=== PATIENT | female | born 1955 | race Caucasian/White ===

== ENCOUNTER 2020-10-01 23:58 | Inpatient (IN) ==
[2020-10-02] MEDS ORDERED: cefTRIAXone SODIUM 2,000 MG/70 ML BAG IV STA (00:18)
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
[2020-10-02 00:51] LABS: Basophils # (auto) 0.03 K/uL (0-0.2); Basophils % (auto) 0.4 %; Eosinophils # (auto) 0.32 K/uL (0-0.5); Eosinophils % (auto) 3.9 %; Hematocrit (blood only) 43.9 % (37-47); Hemoglobin 14.5 g/dL (12.0-16.0); Immature Granulocytes # (auto) 0.02 K/uL (0.00-0.02); Immature Granulocytes % (auto) 0.2 %; Lymphocytes # (auto) 2.31 K/uL (1.2-3.4); Mean Corpuscular Hemoglobin 29.9 pg (25-34); Mean Corpuscular Volume 90.5 fL (80-100); Mean Platelet Volume 10.8 fL (7.4-10.4); Monocytes # (auto) 0.91 K/uL (0.11-0.59); Neutrophils # (auto) 4.67 K/uL (1.4-6.5); Neutrophils % (auto) 56.5 %; Platelet Count 222 K/uL (130-400); RDW Coefficient of Variation 13.4 % (11.5-14.5); RDW Standard Deviation 44.2 fL (36.4-46.3); Red Blood Count 4.85 M/uL (4.2-5.4); White Blood Count 8.26 K/uL (4.8-10.8)
[2020-10-02 01:01] LABS: INR 1.1 (0.9-1.1); Partial Thromboplastin Time 27.2 Seconds (21.0-31.0); Prothrombin Time 11.4 Seconds (9.0-12.0)
[2020-10-02 01:09] LABS: Alanine Aminotransferase 32 U/L (12-78); Albumin Level 3.7 gm/dl (3.4-5.0); Aspartate Aminotransferase 37 U/L (15-37); BUN Creatinine Ratio 21.6 (10-20); Blood Urea Nitrogen 21 mg/dl (7-18); Calcium 9.5 mg/dl (8.5-10.1); Carbon Dioxide 27 mmol/L (21-32); Chloride 108 mmol/L (98-107); Est GFR (African American) 68.8; Est GFR (Non-African American) 59.4; Glucose 160 mg/dl (70-99); Magnesium 2.2 mg/dl (1.8-2.4); Potassium 3.9 mmol/L (3.5-5.1); Sodium 141 mmol/L (136-145)
[2020-10-02 01:20] LABS: Albumin Globulin Ratio 0.9 (0.9-2); Alkaline Phosphatase 93 U/L (45-117); Bilirubin,Total 0.5 mg/dl (0.2-1); Globulin 3.9 gm/dl (2.5-4.0); Total Protein 7.6 gm/dl (6.4-8.2); Troponin I < 0.015 ng/ml (0-0.045)
[2020-10-02] MEDS ORDERED: IOVERSOL 100ml IV ONE (02:10)
[2020-10-02] MEDS ORDERED: lisinopril 5 MG TAB PO ONE (03:08)
[2020-10-02] MEDS ORDERED: DOXYCYCLINE HYCLATE 100 MG in DEXTROSE 5% 100 ML IV STA (03:09)
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
--- NOTE | 2020-10-02 03:26 | Emergency Department Note ---
ED Visit Note I saw this patient in conjunction with Rocio Bonilla PA-C. I independently evaluated this patient. I examined the left lower extremity. There is moderate erythema consistent with acute cellulitis. We discussed the patient's previous spinal surgery with Dr. Canela in the fall that occurred in the injury she suffered to the left side of her body. The patient has received IV antibiotics here in the emergency department and will be admitted to Dr. Pink. .
[2020-10-02 03:29] LABS: Creatine Kinase 62 U/L (26-192)
[2020-10-02] MEDS ORDERED: ACETAMINOPHEN 325 MG TAB PO PRN (04:18)
[2020-10-02] MEDS ORDERED: oxyCODONE HCL IR 5 MG TAB (IMMEDIATE RELEASE) PO PRN (04:18)
[2020-10-02] MEDS ORDERED: PROMETHAZINE HCL 12.5 MG in SODIUM CHLORIDE 0.9% 50 ML IV PRN (04:18)
[2020-10-02] MEDS ORDERED: METHOCARBAMOL 750 MG TABLET PO PRN (04:18)
[2020-10-02] MEDS ORDERED: LACTATED RINGER'S 1,000 ML IV ONE (04:18)
[2020-10-02] MEDS ORDERED: FLUTICASONE PROPIONATE NA SPR 16 GM BTL PRN (04:18)
[2020-10-02] MEDS ORDERED: MoRPHine SULFATE 4 MG/ML 1 ML CARP\\VIAL IV PRN (04:18)
[2020-10-02] MEDS ORDERED: PNEUMOCOCCAL ADMINISTRATION CHARGE ONE (04:39)
[2020-10-02] MEDS ORDERED: INFLUENZA ADMINISTRATION CHARGE ONE (04:39)
[2020-10-02] MEDS ORDERED: INFLUENZA VIRUS QUAD VACCINE 0.5 ML SYR IM ONE (04:39)
[2020-10-02] MEDS ORDERED: PNEUMOCOCCAL POLYSACCHARIDES 25 MCG/0.5 ML VIAL/SYR IM ONE (04:39)
--- NOTE | 2020-10-02 06:36 | XRay Report ---
XR tibia fibula LT 2V HISTORY: 65 years-old Female LLE pain acute pain of the left lower extremity with soft tissue swelli ng COMPARISON: Left knee radiographs 08/05/2011 TECHNIQUE: 2 views of the left tibia and fibula FINDINGS: Cortical thickening of the distal tibia suggests healed remote fracture deformity. There is evidence of prior distal tibial hardware removal. Moderate tibiotalar osteoarthritis. Subtalar joint effusion with intact cannulated screws. Severe degeneration of the talonavicular joint. Mildly demineralized a ppearance of the bones. Mild soft tissue prominence of the lower leg. No acute fracture or dislocatio n. IMPRESSION: 1. Soft tissue swelling without acute fracture or dislocation. 2. Remote posttraumatic and postoperative changes as above. 3. Moderate tibiotalar with severe talonavicular degeneration. ACT 112: Negative or not required by law. The above report was generated using voice recognition software. It may contain grammatical, syntax o r spelling errors. Electronically signed by: Fortunato Crisostomo M.D. 10/02/2020 6:35 AM
[2020-10-02 06:45] LABS: Estimated Average Glucose 128 mg/dl; Hemoglobin A1C 6.1 % (4.5-5.6)
[2020-10-02] MEDS: MoRPHine SULFATE CR 60 MG TABCR PO SCH ×3 (06:47→22:29)
--- NOTE | 2020-10-02 06:47 | Ultrasound Report ---
US venous doppler LE LT HISTORY: 65 years-old Female pain/swelling acute pain and swelling of the left lower extremity COMPARISON: Left tibia and fibula radiographs of same day TECHNIQUE: Multiple real-time sonographic images of the left lower extremity deep venous structures w ere obtained assessing grayscale appearance, color and spectral flow FINDINGS: Limited visualization of the calf veins secondary to subcutaneous edema. Normal flow, compressibility , phasicity and augmentation of the left lower extremity deep venous structures. IMPRESSION: No sonographic evidence of deep venous thrombosis. ACT 112: Negative or not required by law. The above report was generated using voice recognition software. It may contain grammatical, syntax o r spelling errors. Electronically signed by: Fortunato Crisostomo M.D. 10/02/2020 6:45 AM
--- NOTE | 2020-10-02 06:54 | CT Scan Report ---
CT head/brain wo con CLINICAL HISTORY: Head pain status post trauma COMPARISON STUDY: 03/28/2016 TECHNIQUE: Axial CT of the brain is performed from the vertex to the skull base. IV contrast was not administered for this examination. A dose lowering technique was utilized adhering to the principles of ALARA. CT DOSE: 1916.56 mGy.cm FINDINGS: No intra or extra-axial mass lesions are visualized. There is no CT evidence of acute cortical infarc tion. There is no evidence of midline shift. There is no acute hemorrhage. No calvarial fractures ar e visualized. There are minor white matter hypodensities likely on a small vessel basis. There is no evidence of pathologic ventricular dilatation. There is ossification of the falx. There is a right maxillary sinus air-fluid level. IMPRESSION: 1. No acute intracranial findings 2. Right maxillary sinus air-fluid level. ACT 112: Negative or not required by law. Electronically signed by: Maikel Cid M.D. 10/02/2020 6:53 AM
--- NOTE | 2020-10-02 06:57 | CT Scan Report ---
CT OF THE CERVICAL SPINE CLINICAL HISTORY: Neck pain status post trauma COMPARISON STUDY: No previous studies for comparison. CT DOSE: TECHNIQUE: CT scan of the cervical spine was performed from the skull base to the thoracic inlet. Vicky ges are reviewed in the axial, sagittal, and coronal planes. IV contrast was not administered for thi s examination. A dose lowering technique was utilized adhering to the principles of ALARA. FINDINGS: There is a right maxillary sinus air-fluid level. There is no apical pneumothorax. The prevertebral soft tissues are normal. No fractures or subluxations are visualized. There are multilevel degenerative changes present, most pronounced the C5-C6 level with posterior ost eophytic spurring and secondary spinal canal narrowing IMPRESSION: No evidence of acute fracture or traumatic subluxation. ACT 112: Negative or not required by law. Electronically signed by: Maikel Cid M.D. 10/02/2020 6:56 AM
--- NOTE | 2020-10-02 07:12 | XRay Report ---
XR chest 1V portable CLINICAL HISTORY: weakness COMPARISON STUDY: 10/07/2018 FINDINGS: The cardiac and mediastinal contours remain stable. There is stable interstitial thickening which is felt to be chronic. There is no lobar consolidation. There are no pleural effusions. Postsu rgical changes are present within the thoracolumbar spine.[ IMPRESSION: Chronic interstitial thickening. No evidence of focal pulmonary consolidation ACT 112: Negative or not required by law. Electronically signed by: Maikel Cid M.D. 10/02/2020 7:11 AM
[2020-10-02 07:46] LABS: Basophils # (auto) 0.03 K/uL (0-0.2); Basophils % (auto) 0.3 %; Eosinophils # (auto) 0.29 K/uL (0-0.5); Eosinophils % (auto) 3.3 %; Hemoglobin 13.6 g/dL (12.0-16.0); Immature Granulocytes # (auto) 0.02 K/uL (0.00-0.02); Immature Granulocytes % (auto) 0.2 %; Lymphocytes # (auto) 2.89 K/uL (1.2-3.4); Lymphocytes % (auto) 32.5 %; Mean Corpuscular Hemoglobin 29.7 pg (25-34); Mean Corpuscular Hgb Conc 32.4 g/dL (32-36); Mean Corpuscular Volume 91.7 fL (80-100); Monocytes # (auto) 0.89 K/uL (0.11-0.59); Neutrophils # (auto) 4.78 K/uL (1.4-6.5); Neutrophils % (auto) 53.7 %; Platelet Count 230 K/uL (130-400); RDW Coefficient of Variation 13.7 % (11.5-14.5); RDW Standard Deviation 45.5 fL (36.4-46.3); Red Blood Count 4.58 M/uL (4.2-5.4)
--- NOTE | 2020-10-02 07:54 | CT Scan Report ---
CHEST CT WITH CONTRAST HISTORY: Acute left-sided chest pain status post traumatic fall. fall, pain TECHNIQUE: Multiaxial CT images of the chest were performed following the IV administration of 93 cc of Optiray 320. A dose lowering technique was utilized adhering to the principles of ALARA. COMPARISON: Chest radiograph 10/02/2020, MRI thoracic spine 12/09/2018 FINDINGS: 7 mm inferior right thyroid lobe hypodense nodule. There are no pathologically enlarged lym ph nodes. The heart is normal in size without pericardial effusion. There is mild fusiform dilation o f the ascending thoracic aorta, 4.2 x 4.1 cm. No dissection. Mild calcified plaque of the thoracic ao rta and proximal great vessels. The opacified pulmonary artery is unremarkable. No pneumothorax, pleural effusion or overt pulmonary edema. Subpleural predominant bilateral reticula r opacities. 3 mm solid nodule of the apical posterior segment left upper lobe, of low clinical suspi cion. The central airways are patent. No acute process of the imaged upper abdomen. No acute fracture identified. Partially imaged thoracol umbar posterior interbody heidi and screw fusion. IMPRESSION: 1. No acute intrathoracic abnormality. 2. No acute fracture or pneumothorax. 3. Bilateral subpleural predominant reticular opacities are suggestive of fibrosis. 4. Mild fusiform dilation of the ascending thoracic aorta, 4.2 x 4.1 cm. ACT 112: Negative or not required by law. Electronically signed by: Fortunato Crisostomo M.D. 10/02/2020 7:53 AM
[2020-10-02 08:13] LABS: BUN Creatinine Ratio 22.3 (10-20); Calcium 9.4 mg/dl (8.5-10.1); Creatinine Clr Calc Pharmacy 87.5 ml/min; Est GFR (African American) 82.8; Est GFR (Non-African American) 71.4; Potassium 4.1 mmol/L (3.5-5.1)
[2020-10-02] MEDS: ENOXAPARIN INJ 40 MG/0.4 ML SYR SQ SCH (08:56)
[2020-10-02] MEDS: METHOCARBAMOL 750 MG TABLET PO SCH (08:57)
[2020-10-02] MEDS: QUEtiapine FUMARATE 100 MG TABLET PO SCH (08:57)
[2020-10-02] MEDS: DULoxetine HCL 60 MG CAP PO SCH (08:57)
[2020-10-02] MEDS: PANTOprazole 40 MG TAB PO SCH ×2 (08:58→20:53)
--- NOTE | 2020-10-02 10:15 | Electrocardiogram Report ---
Test Reason : Blood Pressure : / mmHG Vent. Rate : 076 BPM Atrial Rate : 076 BPM P-R Int : 206 ms QRS Dur : 096 ms QT Int : 408 ms P-R-T Axes : 037 -07 051 degrees QTc Int : 459 ms Poor data quality, interpretation may be adversely affected Normal sinus rhythm Normal ECG When compared with ECG of 07-OCT-2018 11:21, Criteria for Anterolateral infarct are no longer Present Confirmed by Tyrone Coyne ([id number]) on 10/02/2020 10:15:12 AM Referred By: REFERRED SELF Confirmed By:Tyrone Coyne
[2020-10-02] MEDS: CEROVITE ADV FORMULA TAB PO SCH (13:53)
--- NOTE | 2020-10-02 14:09 | Hospitalist Progress Note ---
Date of Service October 02, 2020 Assessment & Plan (1) Cellulitis of left leg: Recent traumatic fall -- xray of the leg: no fractures -- CT Knee, Leg, Foot: Pending -- improving continue PO DOxycycline PT/OT hypertension, elevated secondary discomfort -- continue Lisinopril, Clonidine hyperlipidemia, on statin Rx chronic pain on narcotics prediabetes -- hemoglobin A1c of 6.1 past tobacco abuse DVT prophylaxis Lovenox subcu Full code Disposition anticipate to return home tomorrow when medically stable Admission and Anticipated Discharge Date Admission Date: October 02, 2020 Subjective ff up for left leg cellulitis, s/p Fall seen resting in bed, comfortable, not in distress states she feels improved overall states she still has knee, lower leg, and ankle pain redness is 50% improved has some pain with ambulating no other symptoms Review of Systems Review of Systems: All systems reviewed & are unremarkable except as noted in Subjective Physical Exam Physical Exam: General- oriented x 3, not in distress, speaks in sentences with no effort or accessory muscle use Head- atraumatic Eyes- PERRL, EOMI, anicteric ENT- oropharynx clear Neck- supple, no JVD, no adenopathy, no thyromegaly; carotids +2/2, no bruits appreciated Lungs- clear to auscultation bilaterally, no rales/wheezes Heart- normal rate, regular rhythm; no murmur, no gallop, no rub appreciated Abdomen- normal bowel sounds, nondistended, soft, nontender, no masses or hepatosplenomegaly Extremities- Left Lower Leg: (+) mild-moderate erythema, no warmth, mild tenderness, poor ROM due to pain Right lower Leg: essentially normal Left Shoulder: (+) hematoma Neuro- alert, oriented x 3; CN 2-12 grossly intact; motor 5/5 bilaterally;sensation 100% on all extremities; no other gross focal neurologic deficits Skin- warm & dry Results & Data Results & Data ([facility]) Vital Signs (Past 12 Hours) Vital Signs Temp Pulse Pulse Resp BP BP Pulse Ox 10/02/20 07:43 37 C 19 156/82 H 95 10/02/20 04:10 37.2 C 71 18 148/89 H 98 10/02/20 03:39 75 15 164/89 H 96 10/02/20 03:02 79 21 168/97 H 100 10/02/20 02:31 81 16 154/99 H 97 Laboratory Results Laboratory Results - last 24 hr 10/02/20 10/02/20 10/02/20 00:18 00:36 00:36 WBC 8.26 RBC 4.85 Hgb 14.5 Hct 43.9 MCV 90.5 MCH 29.9 MCHC 33.0 RDW Std Deviation 44.2 RDW Coeff of Moses 13.4 Plt Count 222 MPV 10.8 H Immature Gran % (Auto) 0.2 Neut % (Auto) 56.5 Lymph % (Auto) 28.0 [place] % (Auto) 11.0 Eos % (Auto) 3.9 Baso % (Auto) 0.4 Neut # (Auto) 4.67 Lymph # (Auto) 2.31 [place] # (Auto) 0.91 H Eos # (Auto) 0.32 Baso # (Auto) 0.03 Immature Gran # (Auto) 0.02 PT 11.4 INR 1.1 APTT 27.2 PTT Ratio 1.0 Sodium Potassium Chloride Carbon Dioxide Anion Gap BUN Creatinine Est Cr Clr Drug Dosing Est GFR ( Amer) Est GFR (Non-Af Amer) BUN/Creatinine Ratio Glucose Estimat Average Glucose 128 Hemoglobin A1c 6.1 H Lactate Calcium Magnesium Total Bilirubin AST ALT Alkaline Phosphatase Total Creatine Kinase Troponin I Total Protein Albumin Globulin Albumin/Globulin Ratio TSH 10/02/20 10/02/20 10/02/20 00:36 00:36 07:24 WBC 8.90 RBC 4.58 Hgb 13.6 Hct 42.0 MCV 91.7 MCH 29.7 MCHC 32.4 RDW Std Deviation 45.5 RDW Coeff of Moses 13.7 Plt Count 230 MPV 11.0 H Immature Gran % (Auto) 0.2 Neut % (Auto) 53.7 Lymph % (Auto) 32.5 [place] % (Auto) 10.0 Eos % (Auto) 3.3 Baso % (Auto) 0.3 Neut # (Auto) 4.78 Lymph # (Auto) 2.89 [place] # (Auto) 0.89 H Eos # (Auto) 0.29 Baso # (Auto) 0.03 Immature Gran # (Auto) 0.02 PT INR APTT PTT Ratio Sodium 141 Potassium 3.9 Chloride 108 H Carbon Dioxide 27 Anion Gap 6.0 BUN 21 H Creatinine 0.99 Est Cr Clr Drug Dosing Not Reportable Est GFR ( Amer) 68.8 Est GFR (Non-Af Amer) 59.4 BUN/Creatinine Ratio 21.6 H Glucose 160 H Estimat Average Glucose Hemoglobin A1c Lactate 1.5 Calcium 9.5 Magnesium 2.2 Total Bilirubin 0.5 AST 37 ALT 32 Alkaline Phosphatase 93 Total Creatine Kinase 62 Troponin I < 0.015 Total Protein 7.6 Albumin 3.7 Globulin 3.9 Albumin/Globulin Ratio 0.9 TSH 2.300 10/02/20 07:24 WBC RBC Hgb Hct MCV MCH MCHC RDW Std Deviation RDW Coeff of Moses Plt Count MPV Immature Gran % (Auto) Neut % (Auto) Lymph % (Auto) [place] % (Auto) Eos % (Auto) Baso % (Auto) Neut # (Auto) Lymph # (Auto) [place] # (Auto) Eos # (Auto) Baso # (Auto) Immature Gran # (Auto) PT INR APTT PTT Ratio Sodium 138 Potassium 4.1 Chloride 107 Carbon Dioxide 27 Anion Gap 4.0 BUN 19 H Creatinine 0.85 Est Cr Clr Drug Dosing 87.5 Est GFR ( Amer) 82.8 Est GFR (Non-Af Amer) 71.4 BUN/Creatinine Ratio 22.3 H Glucose 114 H Estimat Average Glucose Hemoglobin A1c Lactate Calcium 9.4 Magnesium Total Bilirubin AST ALT Alkaline Phosphatase Total Creatine Kinase Troponin I Total Protein Albumin Globulin Albumin/Globulin Ratio TSH
[2020-10-02] MEDS ORDERED: hydrALAZINE HCL 20 MG/ML VIAL IV PRN (14:12)
[2020-10-02] MEDS ORDERED: FENOFIBRATE NANOCRYSTALLIZED 145 MG TABLET PO SCH (16:30)
[2020-10-02] MEDS ORDERED: SIMVASTATIN 40 MG TAB PO SCH (16:30)
[2020-10-02] MEDS: DOXYCYCLINE HYCLATE 100 MG CAP PO SCH (20:53)
[2020-10-02] MEDS ORDERED: cloNIDine HCL 0.1 MG TAB PO SCH (21:00)
[2020-10-02] MEDS ORDERED: clonazePAM 0.5 MG TAB PO SCH (21:00)
[2020-10-02] MEDS ORDERED: QUEtiapine FUMARATE 200 MG TAB PO SCH (21:00)
[2020-10-03] MEDS: MoRPHine SULFATE CR 60 MG TABCR PO SCH ×2 (05:31→13:51)
--- NOTE | 2020-10-03 10:04 | CT Scan Report ---
CT foot LT wo con CLINICAL HISTORY: foot pain, fall, r/o fracture COMPARISON STUDY: No previous studies for comparison. TECHNIQUE: Axial images of the left foot were obtained without IV contrast. Sagittal and coronal eusebio nstructions were viewed. Automated exposure control was utilized for the study. A dose lowering tech nique was utilized adhering to the principles of ALARA. FINDINGS: Subtalar joint fusion is noted. Fusion is complete. 2 cannulated screws extending across th e articulation. There is severe osteoarthritis of the left tibiotalar joint joint space narrowing and subchondral cystic change. There is articular collapse. Previous internal fixation within the left a nkle is partially imaged. No acute fracture within the left foot is noted. Tarsometatarsal joints are intact. There is a healed fracture of the left fifth metatarsal. Dorsal soft tissue swelling is note d. No fluid collection is noted. Note is made of severe osteoarthritis of the talonavicular articulat ion. Anterior process of the calcaneus is diminutive. This is chronic. IMPRESSION: 1. No acute fracture within the left foot. 2. Status post subtalar joint fusion. Severe osteoarthritis of the tibiotalar articulation. 3. Old, healed left fifth metatarsal fracture. Previous left ankle internal fixation with hardware re moval. 4. Dorsal soft tissue swelling of the left foot. ACT 112: Negative or not required by law. Electronically signed by: Hakan Noriega M.D. 10/03/2020 10:03 AM
--- NOTE | 2020-10-03 10:09 | CT Scan Report ---
CT ankle LT wo con CLINICAL HISTORY: foot pain, fall, r/o fracture COMPARISON STUDY: Left tibia and fibula radiographs October 02, 2020. TECHNIQUE: Axial images of the left ankle were obtained without IV contrast. Sagittal and coronal rec onstructions were viewed. Automated exposure control was utilized for the study. A dose lowering vikki hnique was utilized adhering to the principles of ALARA. FINDINGS: Subtalar joint fusion with 2 cannulated screws is noted. This is better depicted on the CT of the left foot. There is an old, healed fracture of the distal shaft of the left tibia. Hardware gallo s been removed. There is no acute fracture of the distal left tibia or fibula. Severe osteophytosis o f the left tibiotalar joint is noted with articular collapse. This is not acute. No suspicious osseou s lesion is noted. There is partial fusion of the distal tibiofibular syndesmosis. Left ankle and prachi t soft tissue swelling is noted. No fluid collection is identified. There is no soft tissue gas. IMPRESSION: 1. No acute fracture or dislocation within the left ankle. 2. Severe osteoarthritis of the tibiotalar joint. Status post subtalar joint fusion. 3. Old, healed fracture of the distal left tibia. 4. Left ankle and foot soft tissue swelling. ACT 112: Negative or not required by law. Electronically signed by: Hakan Noriega M.D. 10/03/2020 10:08 AM
[2020-10-03] MEDS: PANTOprazole 40 MG TAB PO SCH (10:16)
[2020-10-03] MEDS: METHOCARBAMOL 750 MG TABLET PO SCH (10:16)
[2020-10-03] MEDS: DOXYCYCLINE HYCLATE 100 MG CAP PO SCH (10:16)
[2020-10-03] MEDS: ENOXAPARIN INJ 40 MG/0.4 ML SYR SQ SCH (10:16)
[2020-10-03] MEDS: QUEtiapine FUMARATE 100 MG TABLET PO SCH (10:17)
[2020-10-03] MEDS: DULoxetine HCL 60 MG CAP PO SCH (10:17)
[2020-10-03] MEDS: CEROVITE ADV FORMULA TAB PO SCH (10:19)
--- NOTE | 2020-10-03 11:10 | CT Scan Report ---
CT SCAN OF THE LEFT TIBIA AND FIBULA WITHOUT IV CONTRAST CLINICAL HISTORY: Fall. Left leg pain. COMPARISON STUDY: Radiographs of the left tibia and fibula dated 10/02/2020. TECHNIQUE: CT scan of the left tibia and fibula is performed from the distal femur to the ankle joint . Images are reviewed in the axial, sagittal, and coronal planes. IV contrast was not administered fo r this examination. A dose lowering technique was utilized adhering to the principles of ALARA. CT DOSE: 913.18 mGy.cm FINDINGS: The skeletal structures are osteopenic. No acute fracture is seen involving the tibia or fi bula. There is chronic posttraumatic deformity of the distal tibia and fibula with evidence of previo us surgery. Postoperative change from hindfoot fusion is partially imaged. Degenerative change is see n at the tibiotalar articulation. The knee joint is maintained. There is a knee joint effusion. There is pretibial soft tissue edema. More focal soft tissue induration with overlying dermal thickening i s seen anterior to the distal tibia on axial image #360. No organized fluid collection is seen sugges t abscess. Soft tissue edema is also seen overlying the malleolar and in the foot. The Achilles tendo n is intact as imaged. There is generalized atrophy of the regional musculature. Superficial venous v aricosities are present medially. Soft tissue hemorrhage is seen along the anterolateral aspect of th e left knee on axial image #58. This measures approximately 4.5 x 1 cm as seen on image #60. IMPRESSION: 1. There is no evidence of acute fracture of the left tibia or fibula. 2. Chronic posttraumatic deformity and postoperative change as above. 3. Knee joint effusion. 4. There is soft tissue hemorrhage/hematoma identified along the anterolateral aspect of the knee. 5. Additional soft tissue edema is seen throughout the distal left lower extremity. Correlate clinica lly for evidence of contusion and/or cellulitis. ACT 112: Negative or not required by law. Dictated: 10/03/2020 10:06 AM Transcribed: 10/03/2020 10:42 AM Marie [id number] [email or web address]_[email or web address] Electronically signed by: Keanu Joyce M.D. 10/03/2020 11:09 AM
--- NOTE | 2020-10-03 15:33 | Consultation Report ---
DATE OF CONSULTATION: 10/03/2020 HISTORY OF PRESENT ILLNESS: The patient presents as a 65-year-old white female after having had a fall sustaining trauma to her left lower extremity with a contusion and some very mild cellulitis, she relates it is resolving over her left lateral knee. Her x-rays revealed there to be evidence of an old healed fracture of her tibia as well as a previous subtalar fusion, which she relates was done in [place] by Dr. Surya Haro years back. She recently had a fall, has had a contusion over the lateral aspect of her knee. X-rays revealed evidence of no acute fractures, no acute findings are noted. She relates she is getting better and is actually being discharged later today. I reviewed CAT scan and x-rays, nothing acute at this time. Will follow up on an as needed basis. ASSESSMENT: Contusion, resolving cellulitis, left lateral knee. PLAN: Follow up on a p.r.n. basis.
[2020-10-03 16:06] VITALS: BP 118/76; PULSE 71; TEMP 98.2; O2SAT 93
[2020-10-03] MEDS ORDERED: lisinopril 5 MG TAB PO SCH (16:30)
--- NOTE | 2020-10-03 16:37 | Hospitalist Progress Note ---
Date of Service delayed entry date of service note below October 03, 2020 Assessment & Plan (1) Cellulitis of left leg: Recent traumatic fall -- xray of the leg: no fractures -- CT Knee, Leg, Foot: 1. There is no evidence of acute fracture of the left tibia or fibula. 2. Chronic posttraumatic deformity and postoperative change as above. 3. Knee joint effusion. 4. There is soft tissue hemorrhage/hematoma identified along the anterolateral aspect of the knee. 5. Additional soft tissue edema is seen throughout the distal left lower extremity. Correlate clinically for evidence of contusion and/ or cellulitis. --1. No acute fracture or dislocation within the left ankle. 2. Severe osteoarthritis of the tibiotalar joint. Status post subtalar joint fusion. 3. Old, healed fracture of the distal left tibia. 4. Left ankle and foot soft tissue swelling. -- Ortho consulted: no other interventions -- significantly improved continue PO DOxycycline x 8 more days to complete 10 day course Ice pack BID -- ff up with PCP in 1 week Prediabetes -- hemoglobin A1c of 6.1 -- ff up with PCP for further management hypertension -- continue Lisinopril, Clonidine Obesity hyperlipidemia, on statin Rx chronic pain on narcotics -- pain well controlled past tobacco abuse DVT prophylaxis Lovenox subcu Full code Disposition d/c home ff up with PCP in 1 week plan of care discussed with patient in detail and at length all questions were answered she is understanding, agreeable, comfortable with the plan of care Admission and Anticipated Discharge Date Admission Date: October 02, 2020 Subjective ff up for left leg cellulitis, s/p fall, etc seen resting in bed, comfortable states she feels better overall left leg pain markedly improving ambulating with no problems denies other pain in her body no headache, dizziness, chest pain, dyspnea, abdominal pain no fever/chills no other symptoms Review of Systems Review of Systems: All systems reviewed & are unremarkable except as noted in Subjective Physical Exam Physical Exam: General- oriented x 3, not in distress, speaks in sentences with no effort or accessory muscle use Eyes- anicteric Neck- no JVD Lungs- clear breath sounds bilaterally, no rales/wheezes Heart- normal rate, regular rhythm; no murmurs Abdomen- normal bowel sounds, nondistended, soft, nontender Extremities- left lower leg: moderate edema- improving mild erythema, no warmth, mild tenderness better ROM right lower ext: essentially normal Neuro- alert, oriented x 3; no gross focal neurologic deficits Skin- warm & dry Results & Data Results & Data ([facility]) Vital Signs (Past 12 Hours) Vital Signs Temp Pulse Resp BP Pulse Ox 10/03/20 16:03 36.8 C 71 16 118/76 93 10/03/20 07:19 36.7 C 90 18 132/81 97 Laboratory Results noted and reviewed
--- NOTE | 2020-10-05 12:39 | Discharge Summary ---
Date of Service October 05, 2020 Admission HPI Per Admitting Provider History obtained from patient and records. Medical history significant for hypertension, hyperlipidemia, IBS as per records, chronic pain on narcotics, prediabetes, past tobacco abuse. Last confinement September 2018 for acute kidney injury. About 5 days ago patient lost balance at home causing her to fall on her left side. Near syncopal event. Some head trauma without LOC. Transient headache symptoms. Left-sided chest pain and left lower extremity pain after falling down. Yesterday left leg noted to be progressively swollen. No fever, no chills. Patient received Ceftriaxone at the ER for LLE cellulitis. 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 Admission Exam Per Admitting Provider GENERAL: Comfortable, slightly anxious, morbidly obese, no respiratory distress SKIN: Normal color, warm HEENT: Vansant palpebral conjunctivae, no ptosis, dry buccal mucosa NECK : Supple, short neck, no tenderness CHEST : CTA, no tenderness HEART : RRR, no obvious murmurs ABDOMEN: Some distention, nontender EXTREMITIES : LLE erythema with tenderness, ecchymosis on left shoulder, no other conspicuous deformities noted NEUROLOGIC : Coherent, no facial asymmetry, no other gross focality Principal Diagnosis LEFT LEG CELLULITIS, S/P FALL Discharge Exam General- oriented x 3, not in distress, speaks in sentences with no effort or accessory muscle use Eyes- anicteric Neck- no JVD Lungs- clear breath sounds bilaterally, no rales/wheezes Heart- normal rate, regular rhythm; no murmurs Abdomen- normal bowel sounds, nondistended, soft, nontender Extremities- left lower leg: moderate edema- improving mild erythema, no warmth, mild tenderness better ROM right lower ext: essentially normal Neuro- alert, oriented x 3; no gross focal neurologic deficits Skin- warm & dry Discharge Data Allergies Allergy/AdvReac Type Severity Reaction Status Date / Time bee venom protein (honey bee) Allergy Severe ANAPHYLACTIC Verified 10/02/20 00:40 SHOCK fentanyl Allergy Unknown Cardiac Verified 10/02/20 00:40 arrest ampicillin AdvReac Unknown Nauseous Verified 10/02/20 00:40 Consultations 10/02/20 02:30 ED Decision to Admit Stat 10/03/20 12:43 Consult Orthopedic Surgery Routine Ordered Studies 10/02/20 00:18 CT cervical spine wo con Urgent IMPRESSION: No evidence of acute fracture or traumatic subluxation. CT chest w con Urgent FINDINGS: 7 mm inferior right thyroid lobe hypodense nodule. There are no pathologically enlarged lymph nodes. The heart is normal in size without pericardial effusion. There is mild fusiform dilation of the ascending thoracic aorta, 4.2 x 4.1 cm. No dissection. Mild calcified plaque of the thoracic aorta and proximal great vessels. The opacified pulmonary artery is unremarkable. No pneumothorax, pleural effusion or overt pulmonary edema. Subpleural predominant bilateral reticular opacities. 3 mm solid nodule of the apical posterior segment left upper lobe, of low clinical suspicion. The central airways are patent. No acute process of the imaged upper abdomen. No acute fracture identified. Partially imaged thoracolumbar posterior interbody heidi and screw fusion. IMPRESSION: 1. No acute intrathoracic abnormality. 2. No acute fracture or pneumothorax. 3. Bilateral subpleural predominant reticular opacities are suggestive of fibrosis. 4. Mild fusiform dilation of the ascending thoracic aorta, 4.[address] head/brain wo con Urgent No intra or extra-axial mass lesions are visualized. There is no CT evidence of acute cortical infarction. There is no evidence of midline shift. There is no acute hemorrhage. No calvarial fractures are visualized. There are minor white matter hypodensities likely on a small vessel basis. There is no evidence of pathologic ventricular dilatation. There is ossification of the falx. There is a right maxillary sinus air-fluid level. IMPRESSION: 1. No acute intracranial findings 2. Right maxillary sinus air-fluid level. US venous doppler LE LT Urgent IMPRESSION: No sonographic evidence of deep venous thrombosis. 10/02/20 13:00 CT tib/fib LT wo con Routine FINDINGS: The skeletal structures are osteopenic. No acute fracture is seen involving the tibia or fibula. There is chronic posttraumatic deformity of the distal tibia and fibula with evidence of previous surgery. Postoperative change from hindfoot fusion is partially imaged. Degenerative change is seen at the tibiotalar articulation. The knee joint is maintained. There is a knee joint effusion. There is pretibial soft tissue edema. More focal soft tissue induration with overlying dermal thickening is seen anterior to the distal tibia on axial image #360. No organized fluid collection is seen suggest abscess. Soft tissue edema is also seen overlying the malleolar and in the foot. The Achilles tendon is intact as imaged. There is generalized atrophy of the regional musculature. Superficial venous varicosities are present medially. Soft tissue hemorrhage is seen along the anterolateral aspect of the left knee on axial image #58. This measures approximately 4.5 x 1 cm as seen on image #60. IMPRESSION: 1. There is no evidence of acute fracture of the left tibia or fibula. 2. Chronic posttraumatic deformity and postoperative change as above. 3. Knee joint effusion. 4. There is soft tissue hemorrhage/hematoma identified along the anterolateral aspect of the knee. 5. Additional soft tissue edema is seen throughout the distal left lower extremity. Correlate clinically for evidence of contusion and/or cellulitis. 10/02/20 13:07 CT ankle LT wo con Routine 1. No acute fracture or dislocation within the left ankle. 2. Severe osteoarthritis of the tibiotalar joint. Status post subtalar joint fusion. 3. Old, healed fracture of the distal left tibia. 4. Left ankle and foot soft tissue swelling. CT foot LT wo con Routine IMPRESSION: 1. No acute fracture within the left foot. 2. Status post subtalar joint fusion. Severe osteoarthritis of the tibiotalar articulation. 3. Old, healed left fifth metatarsal fracture. Previous left ankle internal fixation with hardware removal. 4. Dorsal soft tissue swelling of the left foot. Hospital Course (1) Cellulitis of left leg: Recent traumatic fall -- xray of the leg: no fractures -- CT Knee, Leg, Foot: 1. There is no evidence of acute fracture of the left tibia or fibula. 2. Chronic posttraumatic deformity and postoperative change as above. 3. Knee joint effusion. 4. There is soft tissue hemorrhage/hematoma identified along the anterolateral aspect of the knee. 5. Additional soft tissue edema is seen throughout the distal left lower extremity. Correlate clinically for evidence of contusion and/ or cellulitis. --1. No acute fracture or dislocation within the left ankle. 2. Severe osteoarthritis of the tibiotalar joint. Status post subtalar joint fusion. 3. Old, healed fracture of the distal left tibia. 4. Left ankle and foot soft tissue swelling. -- Ortho consulted: no other interventions -- significantly improved continue PO DOxycycline x 8 more days to complete 10 day course Ice pack BID -- ff up with PCP in [address] chest findings -- please refer to Ordered studies for full report - "-7 mm inferior right thyroid lobe hypodense nodule. There are no pathologically enlarged lymph nodes. The heart is normal in size without pericardial effusion. There is mild fusiform dilation of the ascending thoracic aorta, 4.2 x 4.1 cm. No dissection. Mild calcified plaque of the thoracic aorta and proximal great vessels. The opacified pulmonary artery is unremarkable. No pneumothorax, pleural effusion or overt pulmonary edema. Subpleural predominant bilateral reticular opacities. 3 mm solid nodule of the apical posterior segment left upper lobe, of low clinical suspicion. The central airways are patent." -- further work up, management and follow up as outpatient Prediabetes -- hemoglobin A1c of 6.1 -- ff up with PCP for further management Hypertension -- continue Lisinopril, Clonidine Obesity Hyperlipidemia, on statin Rx Chronic pain on narcotics -- pain well controlled Past tobacco abuse DVT prophylaxis Lovenox subcu Full code Disposition d/c home ff up with PCP in 1 week plan of care discussed with patient in detail and at length all questions were answered she is understanding, agreeable, comfortable with the plan of care Total Time Total Time Spent Total Time Spent (In Minutes): > 30 minutes Discharge Plan Discharge Items Patient Disposition: Home - Self-Care Reason For Visit: LLE CELLULITIS Discharge Diagnosis: Left lower extremity cellulitis, status post fall Condition on Discharge: Good Activity: As commented below Activity Comment: Resume activity gradually as tolerated, no heavy exertion Lifting: Wait until after follow-up appointment Exercise/Sports: Wait until after follow-up appointment Driving/Machine Use: No driving until evaluated by primary care physician Non-emergency contact: Primary Care Provider Call non-emergency contact if: you have any medication questions, your symptoms worsen, your pain is not controlled, your pain is worsening, your pain is unusual for you, your pain is concerning for you and you have a fever Follow-up/Referrals: Devorah Partida PA-C [Primary Care Provider] - (Date & Time 10/09/2020 1:40 PM Provider Devorah Partida PA-C Department Internal Medicine [facility] ) Diet: Heart Healthy Addtl Attending Provider Instructions: Your new medication is doxycycline: Antibiotic for cellulitis of the leg. Always take this with food. Take a probiotic or yogurt daily for at least 3 to 4 weeks. Call your primary care physician or return to the ER immediately if with worsening of symptoms, including Leg swelling, redness, tenderness, fevers or chills, nausea or vomiting, diarrhea. Follow-up with primary care physician as outlined above. Pending Studies at Discharge: No Stand-Alone Forms: My [facility] [employer], Smoking Cessation Medications and DC Order Prescriptions: New doxycycline hyclate 100 mg Capsule 100 mg PO BID Qty: 16 RF: 0 Continued clonidine HCl [Catapres] 0.1 mg Tablet 0.1 mg PO HS RF: 0 omeprazole 40 mg Capsule,Delayed Release(Dr/Ec) 40 mg PO BID RF: 0 simvastatin [Zocor] 40 mg Tablet 40 mg PO QDD RF: 0 methocarbamol [Robaxin-750] 750 mg Tablet 750 mg PO QAM RF: 0 morphine 60 mg Tablet Extended Release 60 mg PO Q8H RF: 0 nitroglycerin 0.4 mg Tablet, Sublingual 1 tab Sublingual DIRECTED PRN (Reason: Chest Pain) RF: 0 lisinopril 5 mg Tablet 5 mg PO QDD RF: 0 nystatin [Nystop] 100,000 unit/gram Powder 1 applic TOPICAL BID PRN (Reason: Rash) RF: 0 epinephrine [EpiPen] 0.3 mg/0.3 mL Auto-Injector 0.3 mg IM Q3H PRN (Reason: Anaphylaxis) RF: 0 fluticasone propionate [Flonase Allergy Relief] 50 mcg/actuation [place],Suspension 2 spray INTRANASAL DAILY PRN (Reason: Sinus Symptoms) RF: 0 duloxetine [Cymbalta] 60 mg Capsule,Delayed Release(Dr/Ec) 120 mg PO QAM RF: 0 quetiapine [Seroquel] 400 mg Tablet 400 mg PO HS RF: 0 fenofibrate nanocrystallized [Tricor] 145 mg Tablet 145 mg PO QDD RF: 0 omega 1-[id number]-[id number]-fish oil [Fish Oil] 1,000 mg (120 mg-180 mg) Capsule 1 tab PO QAM RF: 0 Multi For Her 18 mg iron-600 mcg-40 mcg Capsule 1 tab-cap PO QAM RF: 0 clonazepam 0.5 mg tablet 0.5 mg PO HS RF: 0 furosemide 40 mg tablet 40 mg PO DAILY PRN (Reason: swelling) RF: 0 quetiapine 100 mg tablet 100 mg PO QAM RF: 0 potassium chloride 20 mEq tablet,ER particles/crystals 20 meq PO QAM RF: 0 methocarbamol 750 mg tablet 750 mg PO Q8 PRN (Reason: Muscle Spasm) RF: 0 albuterol sulfate 90 mcg/actuation HFA aerosol inhaler 2 puff INHALATION QID PRN (Reason: Shortness Of Breath Or Wheezing) RF: 0 Discharge Orders: Discharge Order (Routine); Ordered 10/03/20 Ordered By: Leonel Mason/Other Patient Handouts: Prediabetes, A1C Admission Data Admit Date/Time: 10/02/20 19:40 Attending Provider: Leonel Art Admit Provider: Boone Flores Primary Care Provider: Devorah Partida Other Providers: Boone Flores ; Marvin Olivas Other Interventions: Discharge Summary Assessment (RN) Last Done: 10/03/20 16:44
== END 2020-10-03 17:39 | disposition home or self-care (01) | DRG 603 ==
LOC: ED 23:58 → 3N 23:58

== ENCOUNTER 2022-07-28 05:29 | Inpatient (IN) ==
[2022-07-28 06:40] LABS: Basophils # (auto) 0.04 K/uL (0-0.2); Basophils % (auto) 0.4 %; Eosinophils # (auto) 0.33 K/uL (0-0.50); Eosinophils % (auto) 3.4 %; Hematocrit (blood only) 41.2 % (34.1-44.9); Hemoglobin 13.1 g/dl (12.0-16.0); Immature Granulocytes # (auto) 0.04 K/uL (0.00-0.02); Immature Granulocytes % (auto) 0.4 %; Lymphocytes # (auto) 1.63 K/uL (1.2-3.4); Lymphocytes % (auto) 16.6 %; Mean Corpuscular Hemoglobin 29.5 pg (25.0-34.0); Mean Corpuscular Hgb Conc 31.8 g/dL (32.0-36.0); Mean Corpuscular Volume 92.8 fL (80.0-100.0); Mean Platelet Volume 11.3 fL (9.4-12.3); Monocytes # (auto) 0.91 K/uL (0.24-0.82); Monocytes % (auto) 9.3 %; Neutrophils # (auto) 6.86 K/uL (1.4-6.5); Neutrophils % (auto) 69.9 %; Platelet Count 159 K/uL (130-400); RDW Coefficient of Variation 13.8 % (11.5-14.5); Red Blood Count 4.44 M/uL (3.93-5.22); White Blood Count 9.81 K/ul (4.8-10.8)
[2022-07-28 06:57] LABS: INR 1.1 (0.9-1.1); Partial Thromboplastin Ratio 0.9; Partial Thromboplastin Time 25.5 Seconds (21.0-31.0); Prothrombin Time 11.6 Seconds (9.0-12.0)
[2022-07-28] MEDS ORDERED: SODIUM CHLORIDE 0.9% 1000ML 1,000 ML IV ONE (06:58)
[2022-07-28] MEDS ORDERED: cefTRIAXone SODIUM 2,000 MG/70 ML BAG IV STA (06:58)
[2022-07-28 07:03] LABS: Albumin Globulin Ratio 1.4 (0.9-2); Albumin Level 3.8 gm/dl (3.4-5.0); BUN Creatinine Ratio 17.6 (10-20); Bilirubin,Total 1.2 mg/dl (0.2-1.0); Calcium 9.4 mg/dl (8.5-10.1); Creatinine Clr Calc Pharmacy 33.3 ml/min; Est GFR (African American) 23.5 ml/min; Est GFR (Non-African American) 20.3 ml/min; Globulin 2.8 gm/dl (2.5-4.0); Magnesium 2.2 mg/dl (1.7-2.4); Potassium 4.7 mmol/L (3.5-5.1); Total Protein 6.6 gm/dl (6.0-8.3)
[2022-07-28 07:05] LABS: Troponin I High Sensitivity 17.8 pg/ml (0-14)
[2022-07-28 07:18] LABS: Appearance Urine Clear (Clear); Bacteria Urine Automated Negative (Negative); Bilirubin Urine Negative (Negative); Blood Urine Negative (Negative); Color Urine Dark Yellow; Epithelial Cell Urine Auto 20-30 /lpf (0-5); Glucose Urine UA Negative (Negative); Ketones Urine Trace (Negative); Leukocyte Esterase Urine Trace (Negative); Nitrite Urine Negative (Negative); Protein Urine 1+ (Negative); Specific Gravity Urine 1.023 (1.000-1.030); Urobilinogen Urine Negative (Negative)
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
--- NOTE | 2022-07-28 07:25 | Electrocardiogram Report ---
Test Reason : Blood Pressure : / mmHG Vent. Rate : 083 BPM Atrial Rate : 083 BPM P-R Int : 202 ms QRS Dur : 092 ms QT Int : 398 ms P-R-T Axes : 042 -05 031 degrees QTc Int : 467 ms Normal sinus rhythm Normal ECG When compared with ECG of 02-OCT-2020 00:33, No significant change was found Confirmed by Hernán Prescott ([id number]) on 07/28/2022 7:24:33 AM Referred By: Confirmed By:Lloyd Prescott
[2022-07-28 07:40] LABS: Mucus Urine Present (None Prsent)
[2022-07-28 07:41] LABS: Calcium Oxalate Crystals Urine Present (None Prsent); RBC Urine Automated 0-4 /hpf (0-4)
--- NOTE | 2022-07-28 08:28 | CT Scan Report ---
CT head/brain wo con CLINICAL HISTORY: fall Technique: Contiguous axial CT images of the head were acquired from the base of the skull to the sheng anna without intravenous contrast administration. Images were viewed in brain, subdural and [facility]. Automated dose lowering techniques and/or adjustment according to patient size were utilized for this exam. Comparison: Comparison is made to CT head 10/02/2020 Findings: The ventricles, basal cisterns, and cerebral sulci are normal. There is no acute intracranial hemorrh age or evidence of acute territorial infarction. Neither mass effect, shift of the midline structures , nor abnormal extra-axial fluid collections are shown. Incidental note is made of calcifications of the falx. Imaged portions of the paranasal sinuses and mastoid air cells are clear. The orbits appear normal. There are no acute fractures of the calvaria or scalp swelling. Impression: No acute intracranial hemorrhage, no evidence of acute territorial infarction or other acute intracra nial disease process. ACT 112: Negative or not required by law. Electronically signed by: Andre Perez M.D. 07/28/2022 8:27 AM
--- NOTE | 2022-07-28 08:45 | XRay Report ---
XR chest 1V portable CLINICAL HISTORY: SEPSIS TECHNIQUE: Single frontal radiograph of the chest was obtained. Comparison: Comparison is made to CT chest 10/02/2020 FINDINGS: No lines and tubes are seen. The cardiomediastinal silhouette is normal. There is prominence and ceph alization of the vasculature with Steve B lines seen. This is greater than the interstitial thickeni ng seen on prior exam. No evidence of pleural effusion or pneumothorax. IMPRESSION: Moderate pulmonary edema. ACT 112: Negative or not required by law. Electronically signed by: Andre Perez M.D. 07/28/2022 8:44 AM
--- NOTE | 2022-07-28 08:53 | CT Scan Report ---
CT abd pelvis wo con CLINICAL HISTORY: abd pain fever TECHNIQUE: Helical axial images of the abdomen and pelvis were obtained. Automated dose lowering tech niques and/or adjustment according to patient size were utilized for this exam. This exam was perfor med without intravenous contrast. CT DOSE: 2702.92 mGy.cm COMPARISON: Comparison is made to renal ultrasound 08/20/2008 FINDINGS: Lower chest: Bibasilar atelectasis versus scarring is seen. Liver: Unremarkable. No focal lesions are seen. Gallbladder and biliary tree: Patient is status post cholecystectomy. No intra- or extrahepatic bilia ry ductal dilation. Pancreas: Unremarkable, no focal lesions. Spleen: Unremarkable. Adrenals: Unremarkable. Kidneys and ureters: There is an exophytic cyst in the left kidney inferior pole measuring 22 mm in d iameter. Bladder: Unremarkable. Reproductive organs: Patient is status post hysterectomy. Bowel: Unremarkable. Lymph nodes Retroperitoneal: Unremarkable. Pelvic: Unremarkable. Mesenteric: Unremarkable. Peritoneum: Minimal peritoneal stranding is seen, nonspecific. Vessels: Atherosclerotic calcifications are seen. Phleboliths are noted. Abdominal wall: Unremarkable. Soft tissue stranding is seen in the posterior midline, likely chronic postsurgical change. Bones: Degenerative changes in the visualized spine. Posterior fixation hardware is seen in the lower thoracic and lumbar spine. IMPRESSION: No acute abnormalities are seen. ACT 112: Negative or not required by law. Electronically signed by: Andre Perez M.D. 07/28/2022 8:52 AM
--- NOTE | 2022-07-28 09:00 | CT Scan Report ---
CT cervical spine wo con CLINICAL HISTORY: fall TECHNIQUE: Multidetector row helical CT of the cervical spine was performed without administration of intravenous contrast. Coronal and sagittal reformations were obtained. Automated dose lowering techn iques and/or adjustment according to patient size were utilized for this exam. Comparison: Comparison is made to CT cervical spine 10/02/2020 FINDINGS: No acute fractures or subluxations are identified. The vertebral body heights and disk spaces are wel l maintained. The alignment is normal. Soft tissues are unremarkable. IMPRESSION: No evidence of acute bony injury. ACT 112: Negative or not required by law. Electronically signed by: Andre Perez M.D. 07/28/2022 8:57 AM
[2022-07-28] MEDS ORDERED: ACETAMINOPHEN 325 MG TAB PO PRN (11:04)
[2022-07-28] MEDS ORDERED: ALBUTEROL HFA 8 GM INHALER INH PRN (11:14)
[2022-07-28] MEDS ORDERED: FUROSEMIDE 40 MG TAB PO PRN (11:14)
[2022-07-28 12:50] LABS: Influenza A virus by PCR Negative (Neg); Influenza B virus by PCR Negative (Neg); RSV by PCR Negative (Neg); SARS CoV2 RNA(COVID-19) InHosp NEGATIVE (Negative)
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
[2022-07-28] MEDS: MoRPHine SULFATE CR 15 MG TABCR PO SCH ×2 (13:12→20:32)
[2022-07-28] MEDS: HEPARIN SOD 5,000 UNIT/0.5 ML VIAL SQ SCH ×2 (13:13→22:15)
[2022-07-28] MEDS: DULoxetine HCL 60 MG CAP PO SCH (13:13)
[2022-07-28] MEDS ORDERED: GABAPENTIN 300 MG CAP PO SCH (14:00)
[2022-07-28] MEDS: GABAPENTIN 100 MG CAP PO SCH ×2 (15:03→20:27)
[2022-07-28] MEDS: SIMVASTATIN 40 MG TAB PO SCH (17:39)
[2022-07-28] MEDS: FENOFIBRATE NANOCRYSTALLIZED 145 MG TABLET PO SCH (17:39)
[2022-07-28 19:34] LABS: Urine Potassium 51.5 mmol/L
[2022-07-28] MEDS: QUEtiapine FUMARATE 200 MG TAB PO SCH (20:26)
--- NOTE | 2022-07-28 20:26 | Ultrasound Report ---
US renal/blad retro comp CLINICAL HISTORY: MEG TECHNIQUE: Multiple sonographic real-time images of the kidneys and bladder were obtained. COMPARISON: Comparison is made to renal ultrasound 08/20/[address] abdomen pelvis 07/28/2022 FINDINGS: The right kidney measures 10.6 cm in length, and the left kidney measures 11.4 cm in length. The right kidney is normal in size, contour, cortical thickness, and echogenicity. No hydronephrosis is identified. No renal lesion is identified. No perinephric fluid collection is seen. The left kidney is normal in size, contour, cortical thickness and echogenicity. No hydronephrosis i s identified. A left lower pole cyst measures 2.2 cm in diameter. No perinephric fluid collection i s seen. The bladder is partially distended. No large intraluminal mass is seen. IMPRESSION: No acute abnormality is seen. There is a cyst in the left lower pole. ACT 112: Negative or not required by law. Electronically signed by: Andre Perez M.D. 07/28/2022 8:24 PM
[2022-07-28] MEDS: PANTOprazole 40 MG TAB PO SCH (20:27)
[2022-07-28] MEDS: cloNIDine HCL 0.1 MG TAB PO SCH (20:29)
[2022-07-28] MEDS: clonazePAM 0.5 MG TAB PO SCH (20:32)
[2022-07-28] MEDS ORDERED: QUEtiapine FUMARATE 200 MG TAB PO SCH (21:00)
[2022-07-29 01:49] LABS: A calco-baum cmplx NotReported Not Detected (NotDetected); Bact fragilis Not Reported Not Detected (NotDetected); C auris Not Reported Not Detected (NotDetected); Calbicans Not Reported Not Detected (NotDetected); Candida glabrata Not Reported Not Detected (NotDetected); Candida krusei Not Reported Not Detected (NotDetected); Cneoformans/gatti Not Reported Not Detected (NotDetected); Cparapsilosis Not Reported Not Detected (NotDetected); Ctropicalis Not Reported Not Detected (NotDetected); E cloacae compx Not Reported Not Detected (NotDetected); Efaecalis Not Reported Not Detected (NotDetected); Efaecium Not Reported Not Detected (NotDetected); Enterobacterales Not Reported Not Detected (NotDetected); Escherichia coli Not Reported Not Detected (NotDetected); H influenzae Not Reported Not Detected (NotDetected); K aerogenes Not Reported Not Detected (NotDetected); Koxytoca Not Reported Not Detected (NotDetected); Kpneumoniae grp Not Reported Not Detected (NotDetected); Lmonocyt Not Reported Not Detected (NotDetected); N meningitidis Not Reported Not Detected (NotDetected); P aeruginosa Not Reported Not Detected (NotDetected); Proteus spp Not Reported Not Detected (NotDetected); Salmonella spp Not Reported Not Detected (NotDetected); Smarcescens Not Reported Not Detected (NotDetected); Staph lugdunensis Not Reported Not Detected (NotDetected); Staph spp. Not Reported DETECTED (NotDetected); Staphaureus Not Reported Not Detected (NotDetected); Staphepi Not Reported Not Detected (NotDetected); Staphylococcus spp. DETECTED (NotDetected); Stenmaltophilia Not Reported Not Detected (NotDetected); Strep agal(GrpB) Not Reported Not Detected (NotDetected); Strep pneum Not Reported Not Detected (NotDetected); Strep pyog (GrpA) Not Reported Not Detected (NotDetected); Strep spp Not Reported DETECTED (NotDetected); Streptococcus spp DETECTED (NotDetected)
[2022-07-29] MEDS: HEPARIN SOD 5,000 UNIT/0.5 ML VIAL SQ SCH ×3 (05:01→21:21)
[2022-07-29] MEDS: cefTRIAXone SODIUM 2,000 MG in DEXTROSE 5% 50 ML IV SCH (06:10)
[2022-07-29 06:17] LABS: Hematocrit (blood only) 38.4 % (34.1-44.9); Hemoglobin 12.4 g/dl (12.0-16.0); Mean Corpuscular Hemoglobin 29.7 pg (25.0-34.0); Mean Corpuscular Hgb Conc 32.3 g/dL (32.0-36.0); Mean Corpuscular Volume 92.1 fL (80.0-100.0); Mean Platelet Volume 12.2 fL (9.4-12.3); Platelet Count 165 K/uL (130-400); RDW Coefficient of Variation 13.9 % (11.5-14.5); RDW Standard Deviation 46.9 fL (36.4-46.3); Red Blood Count 4.17 M/uL (3.93-5.22); White Blood Count 6.85 K/ul (4.8-10.8)
[2022-07-29 06:51] LABS: Albumin Globulin Ratio 1.3 (0.9-2); Albumin Level 3.5 gm/dl (3.4-5.0); Bilirubin,Total 0.7 mg/dl (0.2-1.0); Globulin 2.8 gm/dl (2.5-4.0); Total Protein 6.3 gm/dl (6.0-8.3)
[2022-07-29] MEDS ORDERED: VANCOMYCIN CONSULT ACTIVE PRN (07:18)
[2022-07-29] MEDS ORDERED: VANCOMYCIN HCL 2,000 MG in SODIUM CHLORIDE 0.9% 500 ML IV SCH (07:30)
[2022-07-29 07:32] LABS: Calcium 9.1 mg/dl (8.5-10.1); Creatinine Clr Calc Pharmacy 76.8 ml/min; Est GFR (Non-African American) 57.8 ml/min; Potassium 4.3 mmol/L (3.5-5.1)
[2022-07-29] MEDS ORDERED: VANCOMYCIN HCL 2,500 MG in SODIUM CHLORIDE 0.9% 500 ML IV STA (07:58)
[2022-07-29] MEDS ORDERED: MAGNESIUM HYDROXIDE SUSP 30 ML UDC PO ONE (08:06)
[2022-07-29] MEDS: GABAPENTIN 100 MG CAP PO SCH ×2 (08:13→13:54)
[2022-07-29] MEDS: MoRPHine SULFATE CR 15 MG TABCR PO SCH ×3 (08:13→20:02)
[2022-07-29] MEDS: PANTOprazole 40 MG TAB PO SCH ×2 (08:14→20:02)
[2022-07-29] MEDS: DULoxetine HCL 60 MG CAP PO SCH (08:14)
[2022-07-29] MEDS: POLYETHYLENE (MIRALAX) 17 GM PACK PO SCH (08:39)
--- NOTE | 2022-07-29 09:48 | Pharmacy Report ---
Pharmacy PK ABX Note - Date of Service July 29, 2022 - Assessment and Plan Assessment 67 year old F receiving IV vancomycin and ceftriaxone for treatment of possible bacteremia, positive blood culture (1/2 bottles). Pertinent microbiologic data includes: blood cultures (+) 1/2 bottles gram (+) cocci in clusters. BCID2 (+) Staph spp and Strep spp. Day #1 of antimicrobial therapy. Plan Vancomycin * Loading dose: 2500 mg IV x 1 * Maintenance dose: 1500 mg IV every 24 hours * Regimen is predicted to achieve target AUC/SYDNEY of 400-600 mg/L.hr * Will obtain a trough/random level if therapy continues beyond 48h or sooner if clinically indicated Pharmacy will continue to follow and will adjust dose/frequency as necessary. Thank you. Pharmacy has transitioned to AUC monitoring for vancomycin. AUC/SYDNEY is the preferred PK/PD target and is associated with decreased risk of nephrotoxicity compared to traditional trough targets.
--- NOTE | 2022-07-29 15:02 | Hospitalist Progress Note ---
Date of Service July 29, 2022 Assessment & Plan (1) MEG (acute kidney injury): Plan: Baseline creatinine in 05/2022 is 0.9. Came in with creatinine of 2.38 Found to have urinary retention. Likely related to her polypharmacy and constipation. Urinalysis not consistent with UTI. Plan to keep the French in place and do trial of void in 4 to 5 days. (2) Recurrent falls: Plan: Reported in the ED notes that patient had recurrent falls. Patient reports fall yesterday. Her falls are mechanical and related to decompensation. It could be related with polypharmacy Plan for PT OT evaluation and fall precaution. (3) Pulmonary edema: Plan: Chest x-ray concerning for vascular congestion Unable to find any previous echo records. Echo shows EF of 55 to 60% with no wall motion abnormality. Mitral valve, tricuspid valve and aortic valve are normal. (4) Polypharmacy: Plan: She is on multiple psych medication and pain medication which can lead to lethargy. Medications include gabapentin, Seroquel, clonazepam, morphine and Cymbalta. Will decrease the dose of gabapentin, Seroquel and morphine. Continue on Cymbalta and Klonopin. (5) Elevated LFTs: Plan: AST/ALT elevated to 202/63 on admission. Downtrending Will follow serial labs. (6) Staphylococcus aureus bacteremia: Plan: 1 out of 2 bottles of blood culture sent on admission is positive for staph aureus. Patient is started on vancomycin along with ceftriaxone. Will await sensitivity for MSSA versus MRSA. ID consulted; appreciate recommendations Echo done; does not show any valvular abnormalities. Will do daily blood culture. Present on Admission?: Yes (7) Elevated CK: Plan: CK elevated to 3000 in setting of multiple falls. Will continue to monitor daily; encouraged oral hydration for now. Plan DVTHeparin Full code Dispobased on PT OT eval. lives currently at home with Admission and Anticipated Discharge Date Admission Date: July 28, 2022 Subjective Patient seen and examined at bedside. She is much more awake and alert today compared to the day of presentation. She was found to have urinary retention overnight; French was placed draining 1.5 L of clear urine. Review of Systems Review of Systems: All systems reviewed & are unremarkable except as noted in Subjective Physical Exam Physical Exam: Constitutional: Awake, alert orient x3. Not in any acute distress. Respiratory: unable to appreciate crackles Cardiovascular: RRR, no murmur, no edema Vessels: no JVD or carotid bruit Chest: normal inspection of chest Abdomen: normal bowel sounds, soft, nontender, no hepatosplenomegaly Musculoskeletal: no cyanosis or clubbing, extremities motor strength 5/5 Skin: no rashes, warm and dry normal turgor Neurologic: Awake, alert orient x3, no focal deficit. Psychiatric: A+Ox3, euthymic affect Lymphatic: no cervical or axillary lymphadenopathy : deferred Results & Data Results & Data ([facility]) Vital Signs (Past 12 Hours) Vital Signs Temp Pulse Pulse Resp BP Pulse Ox O2 Del Method 07/29/22 11:03 36.8 C 82 19 111/70 98 07/29/22 07:22 36.6 C 90 18 142/73 H 95 Room Air 07/29/22 08:22 80 07/29/22 04:02 36.8 C 78 18 134/78 95 Room Air Diagnostic Findings Laboratory Results WBC 6.85 K/ul (4.8-10.8) 07/29/22 05:01 RBC 4.17 M/uL (3.93-5.22) 07/29/22 05:01 Hgb 12.4 g/dl (12.0-16.0) 07/29/22 05:01 Hct 38.4 % (34.1-44.9) 07/29/22 05:01 MCV 92.1 fL (80.0-100.0) 07/29/22 05:01 MCH 29.7 pg (25.0-34.0) 07/29/22 05:01 MCHC 32.3 g/dL (32.0-36.0) 07/29/22 05:01 RDW Std Deviation 46.9 fL (36.4-46.3) H 07/29/22 05:01 RDW Coeff of [place] 13.9 % (11.5-14.5) 07/29/22 05:01 Plt Count 165 K/uL (130-400) 07/29/22 05:01 MPV 12.2 fL (9.4-12.3) 07/29/22 05:01 Immature Gran % (Auto) 0.4 % 07/28/22 06:30 Neut % (Auto) 69.9 % 07/28/22 06:30 Lymph % (Auto) 16.6 % 07/28/22 06:30 [place] % (Auto) 9.3 % 07/28/22 06:30 Eos % (Auto) 3.4 % 07/28/22 06:30 Baso % (Auto) 0.4 % 07/28/22 06:30 Neut # (Auto) 6.86 K/uL (1.4-6.5) H 07/28/22 06:30 Lymph # (Auto) 1.63 K/uL (1.2-3.4) 07/28/22 06:30 [place] # (Auto) 0.91 K/uL (0.24-0.82) H 07/28/22 06:30 Eos # (Auto) 0.33 K/uL (0-0.50) 07/28/22 06:30 Baso # (Auto) 0.04 K/uL (0-0.2) 07/28/22 06:30 Immature Gran # (Auto) 0.04 K/uL (0.00-0.02) H 07/28/22 06:30 PT 11.6 Seconds (9.0-12.0) 07/28/22 06:30 INR 1.1 (0.9-1.1) 07/28/22 06:30 APTT 25.5 Seconds (21.0-31.0) 07/28/22 06:30 PTT Ratio 0.9 07/28/22 06:30 Sodium 137 mmol/L (136-145) 07/29/22 05:01 Potassium 4.3 mmol/L (3.5-5.1) 07/29/22 05:01 Chloride 104 mmol/L (98-107) 07/29/22 05:01 Carbon Dioxide 26 mmol/L (21-32) 07/29/22 05:01 Anion Gap 7 (3-11) 07/29/22 05:01 BUN 27 mg/dl (6-23) H 07/29/22 05:01 Creatinine 1.00 mg/dl (0.6-1.2) D 07/29/22 05:01 Est Cr Clr Drug Dosing 76.8 ml/min 07/29/22 05:01 Est GFR ( Amer) 67.0 ml/min 07/29/22 05:01 Est GFR (Non-Af Amer) 57.8 ml/min 07/29/22 05:01 BUN/Creatinine Ratio 27.0 (10-20) H 07/29/22 05:01 Glucose 139 mg/dl (70-99(Fasting)) H 07/29/22 05:01 Lactate 1.2 mmol/L (0.4-2.0) 07/28/22 06:46 Uric Acid 7.0 mg/dl (2.6-7.2) 07/28/22 11:23 Calcium 9.1 mg/dl (8.5-10.1) 07/29/22 05:01 Magnesium 2.2 mg/dl (1.7-2.4) 07/28/22 06:30 Total Bilirubin 0.7 mg/dl (0.2-1.0) D 07/29/22 05:01 AST 133 U/L (13-39) H 07/29/22 05:01 ALT 52 U/L (7-52) 07/29/22 05:01 Alkaline Phosphatase 55 U/L (34-104) 07/29/22 05:01 Total Creatine Kinase 3224 U/L (26-192) H 07/29/22 05:01 Troponin I High Sens 17.8 pg/ml (0-14) H 07/28/22 06:30 B-Natriuretic Peptide 42 pg/ml (0-100) 07/29/22 05:01 Total Protein 6.3 gm/dl (6.0-8.3) 07/29/22 05:01 Albumin 3.5 gm/dl (3.4-5.0) 07/29/22 05:01 Globulin 2.8 gm/dl (2.5-4.0) 07/29/22 05:01 Albumin/Globulin Ratio 1.3 (0.9-2) 07/29/22 05:01 Urine Color Dark Yellow 07/28/22 07:01 Urine Appearance Clear (Clear) 07/28/22 07:01 Urine pH 5.0 (4.5-7.5) 07/28/22 07:01 Ur Specific [place] 1.023 (1.000-1.030) 07/28/22 07:01 Urine Protein 1+ (Negative) H 07/28/22 07:01 Urine Glucose (UA) Negative (Negative) 07/28/22 07:01 Urine Ketones Trace (Negative) H 07/28/22 07:01 Urine Blood Negative (Negative) 07/28/22 07:01 Urine Nitrite Negative (Negative) 07/28/22 07:01 Urine Bilirubin Negative (Negative) 07/28/22 07:01 Urine Urobilinogen Negative (Negative) 07/28/22 07:01 Ur Leukocyte Esterase Trace (Negative) H 07/28/22 07:01 Urine WBC (Auto) 1-5 /hpf (0-5) 07/28/22 07:01 Urine RBC (Auto) 0-4 /hpf (0-4) 07/28/22 07:01 U Hyaline Cast (Auto) 5-10 /lpf (0-5) H 07/28/22 07:01 U Epithel Cells (Auto) 20-30 /lpf (0-5) H 07/28/22 07:01 Urine Bacteria (Auto) Negative (Negative) 07/28/22 07:01 Calcium Oxalate Crystal Present (None Prsent) A 07/28/22 07:01 Urine Mucus Present (None Prsent) A 07/28/22 07:01 Urine Osmolality 534 mOsm/kg (500-800) 07/28/22 19:00 Urine Sodium 29 mmol/L 07/28/22 19:00 Urine Potassium 51.5 mmol/L 07/28/22 19:00 Urine Chloride 39 mmol/L 07/28/22 19:00 SARS-CoV-2 (PCR) NEGATIVE (Negative) 07/28/22 Unknown Influenza Type A (PCR) Negative (Neg) 07/28/22 Unknown Influ A Molecular Assay Cancelled 07/28/22 11:50 Influenza Type B (PCR) Negative (Neg) 07/28/22 Unknown Influ B Molecular Assay Cancelled 07/28/22 11:50 RSV (RT-PCR) Negative (Neg) 07/28/22 Unknown RSV (Molecular) Cancelled 07/28/22 11:50 SARS-CoV-2, RNA, NAAT NEGATIVE (NEGATIVE) 07/28/22 07:15 Staphylococcus sp PCR DETECTED (NotDetected) A 07/28/22 06:30 Streptococcus sp PCR DETECTED (NotDetected) A 07/28/22 06:30 Bld Cult ID Panel PCR See PCR Comment (NotDetected) 07/28/22 06:30 Impressions Chest X-Ray 07/28/22 05:43 XR chest 1V portable CLINICAL HISTORY: SEPSIS TECHNIQUE: Single frontal radiograph of the chest was obtained. Comparison: Comparison is made to CT chest 10/02/2020 FINDINGS: No lines and tubes are seen. The cardiomediastinal silhouette is normal. There is prominence and cephalization of the vasculature with Steve B lines seen. This is greater than the interstitial thickening seen on prior exam. No evidence of pleural effusion or pneumothorax. IMPRESSION: Moderate pulmonary edema. ACT 112: Negative or not required by law. Electronically signed by: Andre Perez M.D. 07/28/2022 8:[address] 07/28/22 05:43 CT head/brain wo con CLINICAL HISTORY: fall Technique: Contiguous axial CT images of the head were acquired from the base of the skull to the vertex without intravenous contrast administration. Images were viewed in brain, subdural and bone windows. Automated dose lowering techniques and/or adjustment according to patient size were utilized for this exam. Comparison: Comparison is made to CT head 10/02/2020 Findings: The ventricles, basal cisterns, and cerebral sulci are normal. There is no acute intracranial hemorrhage or evidence of acute territorial infarction. Neither mass effect, shift of the midline structures, nor abnormal extra-axial fluid collections are shown. Incidental note is made of calcifications of the falx. Imaged portions of the paranasal sinuses and mastoid air cells are clear. The orbits appear normal. There are no acute fractures of the calvaria or scalp swelling. Impression: No acute intracranial hemorrhage, no evidence of acute territorial infarction or other acute intracranial disease process. ACT 112: Negative or not required by law. Electronically signed by: Andre Perez M.D. 07/28/2022 8:[address] 07/28/22 06:58 CT cervical spine wo con CLINICAL HISTORY: fall TECHNIQUE: Multidetector row helical CT of the cervical spine was performed without administration of intravenous contrast. Coronal and sagittal reformations were obtained. Automated dose lowering techniques and/or adjustment according to patient size were utilized for this exam. Comparison: Comparison is made to CT cervical spine 10/02/2020 FINDINGS: No acute fractures or subluxations are identified. The vertebral body heights and disk spaces are well maintained. The alignment is normal. Soft tissues are unremarkable. IMPRESSION: No evidence of acute bony injury. ACT 112: Negative or not required by law. Electronically signed by: Andre Perez M.D. 07/28/2022 8:57 AM Abdomen/Pelvis CT 07/28/22 07:43 CT abd pelvis wo con CLINICAL HISTORY: abd pain fever TECHNIQUE: Helical axial images of the abdomen and pelvis were obtained. Automated dose lowering techniques and/or adjustment according to patient size were utilized for this exam. This exam was performed without intravenous contrast. CT DOSE: 2702.92 mGy.cm COMPARISON: Comparison is made to renal ultrasound 08/20/2008 FINDINGS: Lower chest: Bibasilar atelectasis versus scarring is seen. Liver: Unremarkable. No focal lesions are seen. Gallbladder and biliary tree: Patient is status post cholecystectomy. No intra- or extrahepatic biliary ductal dilation. Pancreas: Unremarkable, no focal lesions. Spleen: Unremarkable. Adrenals: Unremarkable. Kidneys and ureters: There is an exophytic cyst in the left kidney inferior pole measuring 22 mm in diameter. Bladder: Unremarkable. Reproductive organs: Patient is status post hysterectomy. Bowel: Unremarkable. Lymph nodes Retroperitoneal: Unremarkable. Pelvic: Unremarkable. Mesenteric: Unremarkable. Peritoneum: Minimal peritoneal stranding is seen, nonspecific. Vessels: Atherosclerotic calcifications are seen. Phleboliths are noted. Abdominal wall: Unremarkable. Soft tissue stranding is seen in the posterior midline, likely chronic postsurgical change. Bones: Degenerative changes in the visualized spine. Posterior fixation hardware is seen in the lower thoracic and lumbar spine. IMPRESSION: No acute abnormalities are seen. ACT 112: Negative or not required by law. Electronically signed by: Andre Perez M.D. 07/28/2022 8:52 AM Renal Ultrasound 07/28/22 09:38 US renal/blad retro comp CLINICAL HISTORY: MEG TECHNIQUE: Multiple sonographic real-time images of the kidneys and bladder were obtained. COMPARISON: Comparison is made to renal ultrasound 08/20/[address] abdomen pelvis 07/28/2022 FINDINGS: The right kidney measures 10.6 cm in length, and the left kidney measures 11.4 cm in length. The right kidney is normal in size, contour, cortical thickness, and echogenicity. No hydronephrosis is identified. No renal lesion is identified. No perinephric fluid collection is seen. The left kidney is normal in size, contour, cortical thickness and echogenicity. No hydronephrosis is identified. A left lower pole cyst measures 2.2 cm in diameter. No perinephric fluid collection is seen. The bladder is partially distended. No large intraluminal mass is seen. IMPRESSION: No acute abnormality is seen. There is a cyst in the left lower pole. ACT 112: Negative or not required by law. Electronically signed by: Andre Perez M.D. 07/28/2022 8:24 PM
[2022-07-29] MEDS: SIMVASTATIN 40 MG TAB PO SCH (16:31)
[2022-07-29] MEDS: FENOFIBRATE NANOCRYSTALLIZED 145 MG TABLET PO SCH (16:31)
[2022-07-29] MEDS: clonazePAM 0.5 MG TAB PO SCH (20:02)
[2022-07-29] MEDS: cloNIDine HCL 0.1 MG TAB PO SCH (20:02)
[2022-07-29] MEDS: QUEtiapine FUMARATE 200 MG TAB PO SCH (20:02)
[2022-07-30] MEDS: HEPARIN SOD 5,000 UNIT/0.5 ML VIAL SQ SCH ×3 (05:13→21:08)
[2022-07-30] MEDS: cefTRIAXone SODIUM 2,000 MG in DEXTROSE 5% 50 ML IV SCH (06:13)
[2022-07-30 06:38] LABS: Hematocrit (blood only) 36.8 % (34.1-44.9); Hemoglobin 12.1 g/dl (12.0-16.0); Mean Corpuscular Hemoglobin 29.5 pg (25.0-34.0); Mean Corpuscular Hgb Conc 32.9 g/dL (32.0-36.0); Mean Corpuscular Volume 89.8 fL (80.0-100.0); Platelet Count 178 K/uL (130-400); RDW Standard Deviation 45.3 fL (36.4-46.3); White Blood Count 6.08 K/ul (4.8-10.8)
[2022-07-30 07:08] LABS: Albumin Globulin Ratio 1.3 (0.9-2); Albumin Level 3.4 gm/dl (3.4-5.0); Bilirubin,Total 0.5 mg/dl (0.2-1.0); Calcium 9.4 mg/dl (8.5-10.1); Creatinine Clr Calc Pharmacy 96.6 ml/min; Est GFR (African American) 87.8 ml/min; Est GFR (Non-African American) 75.8 ml/min; Globulin 2.7 gm/dl (2.5-4.0); Potassium 3.9 mmol/L (3.5-5.1); Total Protein 6.1 gm/dl (6.0-8.3)
[2022-07-30] MEDS ORDERED: VANCOMYCIN HCL 1,500 MG in SODIUM CHLORIDE 0.9% 500 ML IV SCH (08:00)
[2022-07-30] MEDS: PANTOprazole 40 MG TAB PO SCH ×2 (08:11→20:22)
[2022-07-30] MEDS: DULoxetine HCL 60 MG CAP PO SCH (08:11)
[2022-07-30] MEDS: MoRPHine SULFATE CR 15 MG TABCR PO SCH ×3 (08:11→20:22)
[2022-07-30] MEDS: POLYETHYLENE (MIRALAX) 17 GM PACK PO SCH (08:12)
[2022-07-30] MEDS: GABAPENTIN 300 MG CAP PO SCH ×2 (13:07→20:21)
--- NOTE | 2022-07-30 14:26 | Hospitalist Progress Note ---
Date of Service July 30, 2022 Assessment & Plan (1) MEG (acute kidney injury): Plan: Baseline creatinine in 05/2022 is 0.9. Came in with creatinine of 2.38 Found to have urinary retention. Likely related to her polypharmacy and constipation. Urinalysis not consistent with UTI. Trial of void today; bladder scan postvoid residual every 6 hours. Will replace French if she retains again. (2) Recurrent falls: Plan: Reported in the ED notes that patient had recurrent falls. Patient reports fall yesterday. Her falls are mechanical and related to decompensation. It could be related with polypharmacy Plan for PT OT evaluation and fall precaution. (3) Pulmonary edema: Plan: Chest x-ray concerning for vascular congestion. Currently on room air. Unable to find any previous echo records. Echo shows EF of 55 to 60% with no wall motion abnormality. Mitral valve, tricuspid valve and aortic valve are normal. (4) Polypharmacy: Plan: She is on multiple psych medication and pain medication which can lead to lethargy. Medications include gabapentin, Seroquel, clonazepam, morphine and Cymbalta. Will decrease the dose of gabapentin, Seroquel and morphine. Continue on Cymbalta and Klonopin. (5) Elevated LFTs: Plan: Likely related with her CK elevation( muslce injury). Downtrending currently. Will follow serial labs. (6) Elevated CK: Plan: CK elevated to 3000 in setting of multiple falls. Down trended. Will continue to monitor daily; encouraged oral hydration for now. (7) Contamination of blood culture: Plan: Staphylococcus aureus bacteremia ruled out. 1 out of 2 blood culture was positive for Streptococcus and Staphylococcus; discussed with the microbiology. Likely contaminant. Plan; discontinue vancomycin, continue on ceftriaxone for now. Repeat blood cultures are ordered. We will follow-up. Plan DVTHeparin Full code Dispobased on PT OT eval. lives currently at home with Admission and Anticipated Discharge Date Admission Date: July 28, 2022 Subjective Patient seen and examined at bedside. She is comfortably lying in the bed; not in any acute distress. French is in place draining clear urine. Review of Systems Review of Systems: All systems reviewed & are unremarkable except as noted in Subjective Physical Exam Physical Exam: Constitutional: Awake, alert orient x3. Not in any acute distress. Respiratory: unable to appreciate crackles Cardiovascular: RRR, no murmur, no edema Vessels: no JVD or carotid bruit Chest: normal inspection of chest Abdomen: normal bowel sounds, soft, nontender, no hepatosplenomegaly Musculoskeletal: no cyanosis or clubbing, extremities motor strength 5/5 Skin: no rashes, warm and dry normal turgor Neurologic: Awake, alert orient x3, no focal deficit. Psychiatric: A+Ox3, euthymic affect Lymphatic: no cervical or axillary lymphadenopathy : deferred Results & Data Results & Data ([facility]) Vital Signs (Past 12 Hours) Vital Signs Temp Pulse Pulse Resp BP BP Pulse Ox 07/30/22 11:13 36.7 C 71 18 155/99 H 91 07/30/22 08:21 72 07/30/22 07:21 36.6 C 69 18 169/84 H 98 07/30/22 03:00 36.9 C 70 15 116/76 95 O2 Del Method 07/30/22 11:13 Room Air 07/30/22 08:21 07/30/22 07:21 Room Air 07/30/22 03:00 Room Air Laboratory Results Laboratory Results WBC 6.08 K/ul (4.8-10.8) 07/30/22 06:13 RBC 4.10 M/uL (3.93-5.22) 07/30/22 06:13 Hgb 12.1 g/dl (12.0-16.0) 07/30/22 06:13 Hct 36.8 % (34.1-44.9) 07/30/22 06:13 MCV 89.8 fL (80.0-100.0) 07/30/22 06:13 MCH 29.5 pg (25.0-34.0) 07/30/22 06:13 MCHC 32.9 g/dL (32.0-36.0) 07/30/22 06:13 RDW Std Deviation 45.3 fL (36.4-46.3) 07/30/22 06:13 RDW Coeff of Moses 14.0 % (11.5-14.5) 07/30/22 06:13 Plt Count 178 K/uL (130-400) 07/30/22 06:13 MPV 11.0 fL (9.4-12.3) 07/30/22 06:13 Immature Gran % (Auto) 0.4 % 07/28/22 06:30 Neut % (Auto) 69.9 % 07/28/22 06:30 Lymph % (Auto) 16.6 % 07/28/22 06:30 Owen % (Auto) 9.3 % 07/28/22 06:30 Eos % (Auto) 3.4 % 07/28/22 06:30 Baso % (Auto) 0.4 % 07/28/22 06:30 Neut # (Auto) 6.86 K/uL (1.4-6.5) H 07/28/22 06:30 Lymph # (Auto) 1.63 K/uL (1.2-3.4) 07/28/22 06:30 Owen # (Auto) 0.91 K/uL (0.24-0.82) H 07/28/22 06:30 Eos # (Auto) 0.33 K/uL (0-0.50) 07/28/22 06:30 Baso # (Auto) 0.04 K/uL (0-0.2) 07/28/22 06:30 Immature Gran # (Auto) 0.04 K/uL (0.00-0.02) H 07/28/22 06:30 PT 11.6 Seconds (9.0-12.0) 07/28/22 06:30 INR 1.1 (0.9-1.1) 07/28/22 06:30 APTT 25.5 Seconds (21.0-31.0) 07/28/22 06:30 PTT Ratio 0.9 07/28/22 06:30 Sodium 138 mmol/L (136-145) 07/30/22 06:13 Potassium 3.9 mmol/L (3.5-5.1) 07/30/22 06:13 Chloride 105 mmol/L (98-107) 07/30/22 06:13 Carbon Dioxide 27 mmol/L (21-32) 07/30/22 06:13 Anion Gap 6 (3-11) 07/30/22 06:13 BUN 20 mg/dl (6-23) 07/30/22 06:13 Creatinine 0.80 mg/dl (0.6-1.2) 07/30/22 06:13 Est Cr Clr Drug Dosing 96.6 ml/min 07/30/22 06:13 Est GFR ( Amer) 87.8 ml/min 07/30/22 06:13 Est GFR (Non-Af Amer) 75.8 ml/min 07/30/22 06:13 BUN/Creatinine Ratio 25.0 (10-20) H 07/30/22 06:13 Glucose 129 mg/dl (70-99(Fasting)) H 07/30/22 06:13 Lactate 1.2 mmol/L (0.4-2.0) 07/28/22 06:46 Uric Acid 7.0 mg/dl (2.6-7.2) 07/28/22 11:23 Calcium 9.4 mg/dl (8.5-10.1) 07/30/22 06:13 Magnesium 2.2 mg/dl (1.7-2.4) 07/28/22 06:30 Total Bilirubin 0.5 mg/dl (0.2-1.0) 07/30/22 06:13 AST 83 U/L (13-39) H 07/30/22 06:13 ALT 41 U/L (7-52) 07/30/22 06:13 Alkaline Phosphatase 51 U/L (34-104) 07/30/22 06:13 Total Creatine Kinase 1350 U/L (26-192) H 07/30/22 06:13 Troponin I High Sens 17.8 pg/ml (0-14) H 07/28/22 06:30 B-Natriuretic Peptide 42 pg/ml (0-100) 07/29/22 05:01 Total Protein 6.1 gm/dl (6.0-8.3) 07/30/22 06:13 Albumin 3.4 gm/dl (3.4-5.0) 07/30/22 06:13 Globulin 2.7 gm/dl (2.5-4.0) 07/30/22 06:13 Albumin/Globulin Ratio 1.3 (0.9-2) 07/30/22 06:13 Urine Color Dark Yellow 07/28/22 07:01 Urine Appearance Clear (Clear) 07/28/22 07:01 Urine pH 5.0 (4.5-7.5) 07/28/22 07:01 Ur Specific [place] 1.023 (1.000-1.030) 07/28/22 07:01 Urine Protein 1+ (Negative) H 07/28/22 07:01 Urine Glucose (UA) Negative (Negative) 07/28/22 07:01 Urine Ketones Trace (Negative) H 07/28/22 07:01 Urine Blood Negative (Negative) 07/28/22 07:01 Urine Nitrite Negative (Negative) 07/28/22 07:01 Urine Bilirubin Negative (Negative) 07/28/22 07:01 Urine Urobilinogen Negative (Negative) 07/28/22 07:01 Ur Leukocyte Esterase Trace (Negative) H 07/28/22 07:01 Urine WBC (Auto) 1-5 /hpf (0-5) 07/28/22 07:01 Urine RBC (Auto) 0-4 /hpf (0-4) 07/28/22 07:01 U Hyaline Cast (Auto) 5-10 /lpf (0-5) H 07/28/22 07:01 U Epithel Cells (Auto) 20-30 /lpf (0-5) H 07/28/22 07:01 Urine Bacteria (Auto) Negative (Negative) 07/28/22 07:01 Calcium Oxalate Crystal Present (None Prsent) A 07/28/22 07:01 Urine Mucus Present (None Prsent) A 07/28/22 07:01 Urine Osmolality 534 mOsm/kg (500-800) 07/28/22 19:00 Urine Sodium 29 mmol/L 07/28/22 19:00 Urine Potassium 51.5 mmol/L 07/28/22 19:00 Urine Chloride 39 mmol/L 07/28/22 19:00 SARS-CoV-2 (PCR) NEGATIVE (Negative) 07/28/22 Unknown Influenza Type A (PCR) Negative (Neg) 07/28/22 Unknown Influ A Molecular Assay Cancelled 07/28/22 11:50 Influenza Type B (PCR) Negative (Neg) 07/28/22 Unknown Influ B Molecular Assay Cancelled 07/28/22 11:50 RSV (RT-PCR) Negative (Neg) 07/28/22 Unknown RSV (Molecular) Cancelled 07/28/22 11:50 SARS-CoV-2, RNA, NAAT NEGATIVE (NEGATIVE) 07/28/22 07:15 Staphylococcus sp PCR DETECTED (NotDetected) A 07/28/22 06:30 Streptococcus sp PCR DETECTED (NotDetected) A 07/28/22 06:30 Bld Cult ID Panel PCR See PCR Comment (NotDetected) 07/28/22 06:30 Impressions Chest X-Ray 07/28/22 05:43 XR chest 1V portable CLINICAL HISTORY: SEPSIS TECHNIQUE: Single frontal radiograph of the chest was obtained. Comparison: Comparison is made to CT chest 10/02/2020 FINDINGS: No lines and tubes are seen. The cardiomediastinal silhouette is normal. There is prominence and cephalization of the vasculature with Steve B lines seen. This is greater than the interstitial thickening seen on prior exam. No evidence of pleural effusion or pneumothorax. IMPRESSION: Moderate pulmonary edema. ACT 112: Negative or not required by law. Electronically signed by: Andre Perez M.D. 07/28/2022 8:[address] 07/28/22 05:43 CT head/brain wo con CLINICAL HISTORY: fall Technique: Contiguous axial CT images of the head were acquired from the base of the skull to the vertex without intravenous contrast administration. Images were viewed in brain, subdural and bone windows. Automated dose lowering techniques and/or adjustment according to patient size were utilized for this exam. Comparison: Comparison is made to CT head 10/02/2020 Findings: The ventricles, basal cisterns, and cerebral sulci are normal. There is no acute intracranial hemorrhage or evidence of acute territorial infarction. Neither mass effect, shift of the midline structures, nor abnormal extra-axial fluid collections are shown. Incidental note is made of calcifications of the falx. Imaged portions of the paranasal sinuses and mastoid air cells are clear. The orbits appear normal. There are no acute fractures of the calvaria or scalp swelling. Impression: No acute intracranial hemorrhage, no evidence of acute territorial infarction or other acute intracranial disease process. ACT 112: Negative or not required by law. Electronically signed by: Andre Perez M.D. 07/28/2022 8:[address] 07/28/22 06:58 CT cervical spine wo con CLINICAL HISTORY: fall TECHNIQUE: Multidetector row helical CT of the cervical spine was performed without administration of intravenous contrast. Coronal and sagittal reformations were obtained. Automated dose lowering techniques and/or adjustment according to patient size were utilized for this exam. Comparison: Comparison is made to CT cervical spine 10/02/2020 FINDINGS: No acute fractures or subluxations are identified. The vertebral body heights and disk spaces are well maintained. The alignment is normal. Soft tissues are unremarkable. IMPRESSION: No evidence of acute bony injury. ACT 112: Negative or not required by law. Electronically signed by: Andre Perez M.D. 07/28/2022 8:57 AM Abdomen/Pelvis CT 07/28/22 07:43 CT abd pelvis wo con CLINICAL HISTORY: abd pain fever TECHNIQUE: Helical axial images of the abdomen and pelvis were obtained. Automated dose lowering techniques and/or adjustment according to patient size were utilized for this exam. This exam was performed without intravenous contrast. CT DOSE: 2702.92 mGy.cm COMPARISON: Comparison is made to renal ultrasound 08/20/2008 FINDINGS: Lower chest: Bibasilar atelectasis versus scarring is seen. Liver: Unremarkable. No focal lesions are seen. Gallbladder and biliary tree: Patient is status post cholecystectomy. No intra- or extrahepatic biliary ductal dilation. Pancreas: Unremarkable, no focal lesions. Spleen: Unremarkable. Adrenals: Unremarkable. Kidneys and ureters: There is an exophytic cyst in the left kidney inferior pole measuring 22 mm in diameter. Bladder: Unremarkable. Reproductive organs: Patient is status post hysterectomy. Bowel: Unremarkable. Lymph nodes Retroperitoneal: Unremarkable. Pelvic: Unremarkable. Mesenteric: Unremarkable. Peritoneum: Minimal peritoneal stranding is seen, nonspecific. Vessels: Atherosclerotic calcifications are seen. Phleboliths are noted. Abdominal wall: Unremarkable. Soft tissue stranding is seen in the posterior midline, likely chronic postsurgical change. Bones: Degenerative changes in the visualized spine. Posterior fixation hardware is seen in the lower thoracic and lumbar spine. IMPRESSION: No acute abnormalities are seen. ACT 112: Negative or not required by law. Electronically signed by: Andre Perez M.D. 07/28/2022 8:52 AM Renal Ultrasound 07/28/22 09:38 US renal/blad retro comp CLINICAL HISTORY: MEG TECHNIQUE: Multiple sonographic real-time images of the kidneys and bladder were obtained. COMPARISON: Comparison is made to renal ultrasound 08/20/[address] abdomen pelvis 07/28/2022 FINDINGS: The right kidney measures 10.6 cm in length, and the left kidney measures 11.4 cm in length. The right kidney is normal in size, contour, cortical thickness, and echogenicity. No hydronephrosis is identified. No renal lesion is identified. No perinephric fluid collection is seen. The left kidney is normal in size, contour, cortical thickness and echogenicity. No hydronephrosis is identified. A left lower pole cyst measures 2.2 cm in diameter. No perinephric fluid collection is seen. The bladder is partially distended. No large intraluminal mass is seen. IMPRESSION: No acute abnormality is seen. There is a cyst in the left lower pole. ACT 112: Negative or not required by law. Electronically signed by: Andre Perez M.D. 07/28/2022 8:24 PM
[2022-07-30] MEDS: SIMVASTATIN 40 MG TAB PO SCH (15:44)
[2022-07-30] MEDS: FENOFIBRATE NANOCRYSTALLIZED 145 MG TABLET PO SCH (15:44)
[2022-07-30] MEDS: NIFEdipine EXTENDED REL 30 MG TABCR PO SCH (16:39)
[2022-07-30] MEDS: clonazePAM 0.5 MG TAB PO SCH (20:20)
[2022-07-30] MEDS: cloNIDine HCL 0.1 MG TAB PO SCH (20:21)
[2022-07-30] MEDS: QUEtiapine FUMARATE 200 MG TAB PO SCH (20:22)
[2022-07-31] MEDS: HEPARIN SOD 5,000 UNIT/0.5 ML VIAL SQ SCH (05:53)
[2022-07-31 06:21] LABS: Hematocrit (blood only) 39.3 % (34.1-44.9); Hemoglobin 12.9 g/dl (12.0-16.0); Mean Corpuscular Hemoglobin 29.5 pg (25.0-34.0); Mean Corpuscular Hgb Conc 32.8 g/dL (32.0-36.0); Mean Corpuscular Volume 89.7 fL (80.0-100.0); Mean Platelet Volume 11.3 fL (9.4-12.3); Platelet Count 198 K/uL (130-400); RDW Standard Deviation 45.2 fL (36.4-46.3); Red Blood Count 4.38 M/uL (3.93-5.22); White Blood Count 6.81 K/ul (4.8-10.8)
[2022-07-31 06:36] LABS: Albumin Globulin Ratio 1.2 (0.9-2); Albumin Level 3.6 gm/dl (3.4-5.0); BUN Creatinine Ratio 21.2 (10-20); Bilirubin,Total 0.6 mg/dl (0.2-1.0); Calcium 9.5 mg/dl (8.5-10.1); Est GFR (African American) 81.6 ml/min; Est GFR (Non-African American) 70.4 ml/min; Potassium 3.8 mmol/L (3.5-5.1); Total Protein 6.6 gm/dl (6.0-8.3)
[2022-07-31] MEDS: GABAPENTIN 300 MG CAP PO SCH ×2 (07:56→14:45)
[2022-07-31] MEDS: PANTOprazole 40 MG TAB PO SCH (07:56)
[2022-07-31] MEDS: NIFEdipine EXTENDED REL 30 MG TABCR PO SCH (07:57)
[2022-07-31] MEDS: DULoxetine HCL 60 MG CAP PO SCH (07:57)
[2022-07-31] MEDS: POLYETHYLENE (MIRALAX) 17 GM PACK PO SCH (07:57)
[2022-07-31] MEDS: MoRPHine SULFATE CR 15 MG TABCR PO SCH ×2 (07:59→14:46)
--- NOTE | 2022-07-31 14:11 | Discharge Summary ---
Discharge Summary Date of Service July 31, 2022 Notes For Next Care Provider Review medication changes Monitor progress with home health for PT and OT Medication Changes From Visit Gabapentin reduced to 300mg TID Started nifedipine 30mg daily Reduced Quietapine to 200mg PO qHS Changed morphine to 30mg TID Stopped Lisinopril 5mg daily Admission HPI Per Admitting Provider Patient is a 67-year-old female with past medical history of hypertension, hyperlipidemia, depression, anxiety, chronic back pain on opioids presented to the hospital after a fall. Patient is a poor historian. She reported that she she was walking in the house in the afternoon yesterday when her leg gave out and she fell on the floor. She denies losing consciousness, hitting her head, weakness/numbness of unknown any body part, chest pain or shortness of breath. Initially, she did not want to come to the hospital but her brought her over the night. She endorses that she has been feeling weak for the last several days. She is lethargic but able to answer most of the questions appropriately. She was oriented to time, place and person. She asked me to mallorie l her . Multiple attempts were made to go to the ; unable to reach him.Review of her medication list shows multiple medication that can lead to lethargy including morphine, duloxetine, clonidine, gabapentin and Seroquel. Presentation to the ED, patient was afebrile, normotensive and was requiring 2 L of nasal cannula. CBC is is unremarkable. Creatinine is elevated to 2.38; baseline creatinine of 0.9 in 05/2022. AST and ALT elevated. Urinalysis is unremarkable. EKG shows normal sinus rhythm with QTC of 467. Head CT is negative for acute abnormality. Chest x-ray is consistent with pulm edema. CT abdomen/pelvis is unremarkable and so his cervical CT spine. Admission Exam Per Admitting Provider Physical Exam Physical Exam: Constitutional: Lethargic but able to communicate verbally. Obese female Respiratory: unable to appreciate crackles Cardiovascular: RRR, no murmur, no edema Vessels: no JVD or carotid bruit Chest: normal inspection of chest Abdomen: normal bowel sounds, soft, nontender, no hepatosplenomegaly Musculoskeletal: no cyanosis or clubbing, extremities motor strength 5/5 Skin: no rashes, warm and dry normal turgor Neurologic: Lethargic, following commands appropirately; Psychiatric: A+Ox3, euthymic affect Lymphatic: no cervical or axillary lymphadenopathy : deferred Principal Dx & Hospital Course #1 = Principal Diagnosis (1) MEG (acute kidney injury): (2) Traumatic rhabdomyolysis: (3) Recurrent falls: (4) Metabolic encephalopathy: (5) Pulmonary edema: (6) Polypharmacy: (7) Elevated LFTs: (8) Contamination of blood culture: Plan 67-year-old female presented to the ER for recurrent falls and weakness. She was brought in by EMS and although she was oriented to person place and time had been more confused recently. Lab work revealed no significant leukocytosis or anemia. INR was unremarkable. BMP with creatinine 2.38 up from baseline of 1. Bilirubin was up to 1.8 and there was a transaminitis. Troponin was mildly elevated at 18. proBNP was 21. UA was contaminated. There were no white cells to suggest infection. COVID and influenza were negative. CT of the head and cervical spine and and abdomen pelvis was fairly unremarkable. Chest x-ray was unremarkable. She was given IV fluids and started on IV Rocephin and was admitted to the medicine service for treatment of her acute kidney injury. Lasix was held and IV fluids were continued. Chest x-ray was concerning for vascular congestion and an echocardiogram was obtained. This revealed an ejection fraction of 35 to 60% and no significant valve disease and no pericardial effusion. CK was found to be elevated in the setting of multiple falls. This trended down with IV fluids. So did liver function elevation. She had 2 out of 4 bottles positive for coag negative staph and alpha hemolytic strep which likely presented a contaminant or clinically relevant findings. Infectious disease was consulted with this recommendation. There was no reason to extend antibiotic administration and this was stopped. Polypharmacy was likely contributing to her recurrent falls and medications were adjusted throughout her stay and again at discharge. At time of discharge she was oxygenating well and was mentating and ambulating at baseline and tolerating p.o. Close primary care follow-up was recommended she was discharged in stable condition. Discharge Exam Constitutional: Awake, alert orient x3. Not in any acute distress. Respiratory: CTA bilaterally, no increased respiratory effort. Cardiovascular: RRR, no murmur, no edema Vessels: no JVD or carotid bruit Chest: normal inspection of chest Abdomen: normal bowel sounds, soft, nontender, nondistended. Musculoskeletal: no cyanosis or clubbing, extremities motor strength 5/5 Skin: no rashes, warm and dry normal turgor Neurologic: Awake, alert orient x3, no focal deficit. Psychiatric: A+Ox3, euthymic affect Lymphatic: no cervical or axillary lymphadenopathy Updated Medication List Medication Instructions Recorded Confirmed Type clonidine HCl 0.1 mg tablet 0.1 mg PO HS 09/25/18 07/28/22 History (Catapres) duloxetine 60 mg capsule,delayed 120 mg PO QAM 09/25/18 07/28/22 History release (Cymbalta) epinephrine 0.3 mg/0.3 mL 0.3 mg IM Q3H PRN Anaphylaxis 09/25/18 07/28/22 History injection, auto-injector (EpiPen) fenofibrate nanocrystallized 145 145 mg PO QDD 09/25/18 07/28/22 History mg tablet (Tricor) fluticasone propionate 50 2 spray intranasal DAILY PRN Sinus 09/25/18 07/28/22 History mcg/actuation nasal Symptoms spray,suspension (Flonase Allergy Relief) ixyintmij-ymi-rygm fumarate 18 1 tab-cap PO QAM 09/25/18 07/28/22 History mg-FA 600 mcg-vit K 40 mcg capsule (Multi For Her) nitroglycerin 0.4 mg sublingual 1 tab sublingual DIRECTED PRN 09/25/18 0 07/28/22 History tablet Chest Pain nystatin 100,000 unit/gram topical 1 applic topical BID PRN Rash 09/25/18 07/28/22 History powder (Nystop) omega 3-ibg-gcb-fish oil 1,000 mg 1 tab PO QAM 09/25/18 07/28/22 History (120 mg-180 mg) capsule (Fish Oil) omeprazole 40 mg capsule,delayed 40 mg PO BID 09/25/18 07/28/22 History release simvastatin 40 mg tablet (Zocor) 40 mg PO QDD 09/25/18 07/28/22 History albuterol sulfate 90 mcg/actuation 2 puff inhalation QID PRN 10/02/20 07/28/22 History aerosol inhaler Shortness Of Breath Or Wheezing clonazepam 0.5 mg tablet 0.5 mg PO HS 10/02/20 07/28/22 History furosemide 40 mg tablet 40 mg PO DAILY PRN swelling 10/02/20 07/28/22 History potassium chloride 20 mEq 20 meq PO QAM 10/02/20 07/28/22 History tablet,extended release(part/cryst) methocarbamol 750 mg tablet 750 mg Q8 PRN Muscle Pain 07/28/22 07/28/22 History gabapentin 300 mg capsule 300 mg PO TID #60 caps 07/31/22 Rx morphine 30 mg tablet,extended 30 mg PO TID #60 tabs 07/31/22 07/28/22 Rx release nifedipine 30 mg tablet,extended 30 mg PO QAM #30 tabs 07/31/22 Rx release 24 hr (Procardia XL) quetiapine 200 mg tablet (Seroquel) 200 mg PO HS #30 tabs 07/31/22 Rx Hospital Stay Data Consultations 07/28/22 09:14 ED Decision to Admit Stat 07/30/22 16:55 Consult Infectious Diseases Routine Diagnostic Imagining Performed 07/28/22 05:43 CT head/brain wo con Urgent 07/28/22 06:58 CT cervical spine wo con Stat 07/28/22 07:43 CT abd pelvis wo con Stat 07/28/22 09:38 US Renal Bladder [US renal/blad retro comp] Routine Pending Results Patient Have Any Pending Studies at Discharge: Yes Discharge Instructions Given to Patient (Per Discharging Provider) Please take all medications as instructed on discharge list below. There was no evidence of a urinary tract infection from your labwork. You did have a bacterial contamination in one set of blood cultures. The repeat blood cultures were pending at time of discharge and may be followed by your primary care doctor on follow-up. Please follow-up with your primary care physician within one week of discharge from the hospital to review all your medications including changes, recheck your blood pressure after new medication was added and follow-up on the blood culture readings from the hospital. It was a pleasure taking care of you! Please call if you have any questions or problems. You can reach a [facility] hospitalist on duty at [facility] 24 hours a day by calling [phone]. Take care of yourself. Marifer Wilkinson, DO [facility] Hospitalist Total Time Total Time Spent Total Time Spent (In Minutes): 60
== END 2022-07-31 16:02 | disposition home health service (06) | DRG 682 ==
LOC: ED 05:29 → SUATTDRO 09:38 → 4W 09:38

== ENCOUNTER 2025-01-03 06:08 | Observation (INO) ==
--- NOTE | 2024-10-18 10:46 | PAT Medication Instructions ---
Medication Instructions Date of Service October 18, 2024 Home Medications Medication Instructions Recorded nifedipine 30 mg tablet,extended 30 mg PO QAM #30 tabs 07/31/22 release 24 hr (Procardia XL) clonidine HCl 0.1 mg tablet (Catapres) 0.1 mg PO HS duloxetine 60 mg capsule,delayed release (Cymbalta) 120 mg PO QAM epinephrine 0.3 mg/0.3 mL injection, auto-injector (EpiPen) 0.3 mg IM Q3H PRN fenofibrate nanocrystallized 145 mg tablet (Tricor) 145 mg PO QAM fluticasone propionate 50 mcg/actuation nasal spray,suspension (Flonase Allergy Relief) 2 spray intranasal DAILY PRN suifoylmg-mab-vbbl fumarate 18 mg-FA 600 mcg-vit K 40 mcg capsule (Multi For Her) 1 tab-cap PO QAM nitroglycerin 0.4 mg sublingual tablet (Nitrostat) 1 tab sublingual DIRECTED PRN nystatin 100,000 unit/gram topical powder (Nystop) 1 applic topical BID PRN omega 5-tdg-eau-fish oil 1,000 mg (120 mg-180 mg) capsule (Fish Oil) 1 cap PO QAM omeprazole 40 mg capsule,delayed release 40 mg PO BID albuterol sulfate 90 mcg/actuation aerosol inhaler 2 puff inhalation QID PRN furosemide 40 mg tablet (Lasix) 40 mg PO DAILY PRN potassium chloride 20 mEq tablet,extended release(part/cryst) 20 meq PO QAM nifedipine 30 mg tablet,extended release 24 hr (Procardia XL) 30 mg PO QAM atorvastatin 40 mg tablet (Lipitor) 40 mg PO HS meclizine 12.5 mg tablet 12.5 mg PO TID metformin 500 mg tablet 500 mg PO BID semaglutide 0.25 mg or 0.5 mg (2 mg/1.5 mL) subcutaneous pen injector 0.5 mg subcut WK oxycodone 10 mg tablet 10 mg PO QID PRN gabapentin 800 mg tablet 800 mg PO TID quetiapine 100 mg tablet 100 mg PO QAM quetiapine 400 mg tablet 400 mg PO HS STOP 7 days before surgery semaglutide 0.25 mg or 0.5 mg (2 mg/1.5 mL) subcutaneous pen injector 0.5 mg subcut WK Continue as directed epinephrine 0.3 mg/0.3 mL injection, auto-injector (EpiPen) 0.3 mg IM Q3H PRN(if needed) fluticasone propionate 50 mcg/actuation nasal spray,suspension (Flonase Allergy Relief) 2 spray intranasal DAILY PRN(if needed) nitroglycerin 0.4 mg sublingual tablet (Nitrostat) 1 tab sublingual DIRECTED PRN(if needed) STOP taking 2 weeks before surgery (or as soon as possible if surgery is within 2 weeks) omega 4-mvs-svr-fish oil 1,000 mg (120 mg-180 mg) capsule (Fish Oil) 1 cap PO QAM STOP taking 48 hours before surgery fenofibrate nanocrystallized 145 mg tablet (Tricor) 145 mg PO QAM STOP taking 24 hours before surgery nystatin 100,000 unit/gram topical powder (Nystop) 1 applic topical BID PRN DO NOT take the morning of surgery fsutiozla-num-vvrs fumarate 18 mg-FA 600 mcg-vit K 40 mcg capsule (Multi For Her) 1 tab-cap PO QAM furosemide 40 mg tablet (Lasix) 40 mg PO DAILY PRN potassium chloride 20 mEq tablet,extended release(part/cryst) 20 meq PO QAM metformin 500 mg tablet 500 mg PO BID Take morning of surgery With a small sip of water, OTHERWISE NOTHING TO EAT OR DRINK AFTER MIDNIGHT: duloxetine 60 mg capsule,delayed release (Cymbalta) 120 mg PO QAM omeprazole 40 mg capsule,delayed release 40 mg PO BID albuterol sulfate 90 mcg/actuation aerosol inhaler 2 puff inhalation QID PRN(use if needed; please bring with you to hospital day of surgery if possible) nifedipine 30 mg tablet,extended release 24 hr (Procardia XL) 30 mg PO QAM meclizine 12.5 mg tablet 12.5 mg PO TID oxycodone 10 mg tablet 10 mg PO QID PRN(if needed) gabapentin 800 mg tablet 800 mg PO TID quetiapine 100 mg tablet 100 mg PO QAM Take evening before surgery clonidine HCl 0.1 mg tablet (Catapres) 0.1 mg PO HS omeprazole 40 mg capsule,delayed release 40 mg PO BID albuterol sulfate 90 mcg/actuation aerosol inhaler 2 puff inhalation QID PRN(if needed) atorvastatin 40 mg tablet (Lipitor) 40 mg PO HS meclizine 12.5 mg tablet 12.5 mg PO TID metformin 500 mg tablet 500 mg PO BID oxycodone 10 mg tablet 10 mg PO QID PRN(if needed) gabapentin 800 mg tablet 800 mg PO TID quetiapine 400 mg tablet 400 mg PO HS Other Notes If you have any questions please call us at [phone] or [phone] or [phone] or [phone]
--- NOTE | 2024-11-02 14:48 | Anesthesiology Consultation ---
Date of Service November 02, 2024 Assessment & Plan Chart Review Chart Review: Patient seen in Pre Admission Testing - Check BSG DOS - Infectious disease screening: Per assessment on 11/02/24- No known recent infectious disease contacts or current infectious disease symptoms. - Outpatient joint assessment: Pt currently scheduled for inpatient pathway. If surgeon requests review for outpatient joint pathway, patient is not recommended candidate for outpatient joint program from anesthesia standpoint based on available information. - Semaglutide instructions: Patient informed by PAT to stop 7 days prior to surgery- voiced understanding. DOS 11/19/24. Advised last dose to be 11/10/24. - S/P MRI Right knee (03/31/24): MAC at [facility]. No issues noted per post-op anesthesia progress note. - Preop testing: Preop CXR done 11/02/24 notes 'Findings suggestive of chronic interstitial lung disease. Recommend clinical correlation.' No acute cardiopulmonary complaints and unremarkable vitals/physical exam at PAT visit from same day. Note written to PCP regarding preop CXR- Awaiting response (Dr. Quiroz/Jennifer). Patient otherwise acceptable risk for surgery. Teaching & Discussion Pre-Anesthesia Teaching/Discussion Notes: Instructed NPO after midnight before surgery,except medications with 15 cc of water. Medication instructions provided according to the PAT guidelines. History Surgery Operation Date: 11/19/24 11:00 Proposed Procedures p Right Total Knee Arthroplasty - Juan Carlos Demarco DO Height/Weight Height: 5 ft 7 in Weight: 96.1 kg Allergies Allergy/AdvReac Type Severity Reaction Status Date / Time bee venom protein (honey bee) Allergy Severe Anaphylaxis Verified 10/15/24 10:45 fentanyl AdvReac Severe Cardiac Verified 10/15/24 10:45 arrest ampicillin AdvReac Intermediate Nausea Verified 10/15/24 10:45 Medications Home Medications Medication Instructions Recorded Confirmed Last Taken clonidine HCl 0.1 mg tablet 0.1 mg PO HS 09/25/18 10/15/24 03/28/24 (Catapres) duloxetine 60 mg capsule,delayed 120 mg PO QAM 09/25/18 10/15/24 03/31/24 05:00 release (Cymbalta) epinephrine 0.3 mg/0.3 mL 0.3 mg IM Q3H PRN Anaphylaxis 09/25/18 10/15/24 Unknown injection, auto-injector (EpiPen) fenofibrate nanocrystallized 145 145 mg PO QAM 09/25/18 10/15/24 03/29/24 08:00 mg tablet (Tricor) fluticasone propionate 50 2 spray intranasal DAILY PRN Sinus 09/25/18 10/15/24 03/24/24 mcg/actuation nasal Symptoms spray,suspension (Flonase Allergy Relief) oatrgjbas-lla-xyhj fumarate 18 1 tab-cap PO QAM 09/25/18 10/15/24 03/30/24 08:00 mg-FA 600 mcg-vit K 40 mcg capsule (Multi For Her) nitroglycerin 0.4 mg sublingual 1 tab sublingual DIRECTED PRN 09/25/18 10/15/24 Unknown tablet (Nitrostat) Chest Pain nystatin 100,000 unit/gram topical 1 applic topical BID PRN Rash 09/25/18 10/15/24 Unknown powder (Nystop) omega 0-avp-vya-fish oil 1,000 mg 1 cap PO QAM 09/25/18 10/15/24 03/17/24 (120 mg-180 mg) capsule (Fish Oil) omeprazole 40 mg capsule,delayed 40 mg PO BID 09/25/18 10/15/24 03/31/24 05:00 release albuterol sulfate 90 mcg/actuation 2 puff inhalation QID PRN 10/02/20 10/15/24 02/11/24 aerosol inhaler Shortness Of Breath Or Wheezing furosemide 40 mg tablet (Lasix) 40 mg PO DAILY PRN Edema 10/02/20 10/15/24 03/17/24 potassium chloride 20 mEq 20 meq PO QAM 10/02/20 10/15/24 03/30/24 16:00 tablet,extended release(part/cryst) nifedipine 30 mg tablet,extended 30 mg PO QAM #30 tabs 07/31/22 10/15/24 03/31/24 05:00 release 24 hr (Procardia XL) atorvastatin 40 mg tablet (Lipitor) 40 mg PO HS 03/18/24 10/15/24 03/30/24 20:00 meclizine 12.5 mg tablet 12.5 mg PO TID 03/18/24 10/15/24 03/31/24 05:00 metformin 500 mg tablet 500 mg PO BID 04/2510/15/24 03/30/24 16:00 semaglutide 0.25 mg or 0.5 mg (2 0.5 mg subcut WK wt loss 03/31/24 10/15/24 10/13/24 mg/1.5 mL) subcutaneous pen injector oxycodone 10 mg tablet 10 mg PO QID PRN Pain 08/17/24 10/15/24 Unknown gabapentin 800 mg tablet 800 mg PO TID 10/15/24 10/15/24 Unknown quetiapine 100 mg tablet 100 mg PO QAM 10/15/24 10/15/24 Unknown quetiapine 400 mg tablet 400 mg PO HS 10/15/24 10/15/24 Unknown Past Medical History Medical History (Updated 11/02/24 @ 15:16 by Lilliana Kelley) Anxiety Cardiopulmonary arrest 2007 (CPR performed/successful)- "caused by Fentanyl patch/drug overdose", cardiac cath negative, no issues since Chronic back pain "Unable to lay flat" Chronic kidney disease Stage III per records Depression Diabetes mellitus GERD (gastroesophageal reflux disease) History of IBS Hyperlipidemia Hypertension Osteoarthritis RSD (reflex sympathetic dystrophy) Seasonal allergies Exercise / Class Metabolic Activity II 4-5 Yardwork/Stairs/Walk up hill (one FS: No CP, no SOB) Past Family History Family History Brother Family history of diabetes mellitus Sister Family history of diabetes mellitus Past Surgical History Surgical History (Updated 11/02/24 @ 15:16 by Lilliana Kelley) History of ankle surgery Left (Multiple), + Hardware History of bilateral tubal ligation History of cataract surgery R/L with lens implants History of cholecystectomy History of colonoscopy History of hysterectomy uterus and tubes History of left heart catheterization (LHC) "Normal coronaries following cardiopulmonary arrest caused by Fentanyl patch/drug overdose 2007" History of tooth extraction No bottom teeth Hx of bilateral oophorectomy Hx of laminectomy Hx of sinus surgery x2 Hx of spinal fusion Hardware present "4 cages" Removal previous hardware, decompression/ T11-L3 fusion (05/22/15): Grade view 1, MAC#3, ETT 7.0 at [facility] Past Anesthesia History No Hx of Anesthesia Complications and No Family Hx of Anesthesia Complications History of PONV No Hx of PONV and Hx of Motion Sickness Social History Smoking Status: Never smoker Do You Dip or Chew Tobacco: No Hx Alcohol Use: No Hx Substance Use: No substance use type: does not use Review of Systems Patient denies chest pain, shortness of breath, dyspnea on exertion, fever, chills, cough, wheezing, palpitations. Physical Exam Vital Signs BP 104/74 P 84 TEMP 98.6 SP02 95%RA RESP 18 Physical Full cervical extension range of motion. Full TMJ range of motion. TMD > 3.5 finger breaths Mallampati Score II Dentition: upper front teeth remaining, no lower teeth Lungs: clear throughout to auscultation Cardiac: regular rate and rhythm, no murmurs noted Spine: normal Carotid arteries: negative bruit Extremities: no LE edema Lab Results Anesthesia Preop Results Results Anesthesia Widget: WBC 8.35 K/ul (4.8-10.8) 11/02/24 Hgb 12.7 g/dl (12.0-16.0) 11/02/24 Hct 39.2 % (37.0-47.0) 11/02/24 Plt 276 K/uL (130-400) 11/02/24 Na 139 mmol/L (136-145) 11/02/24 K 4.4 mmol/L (3.5-5.1) 11/02/24 Cl 106 mmol/L (98-107) 11/02/24 CO2 26 mmol/L (21-32) 11/02/24 BUN 22 mg/dl (6-23) 11/02/24 Creat 1.02 mg/dl (0.6-1.2) 11/02/24 Glucose Level 96 mg/dl (70-99(Fasting)) 11/02/24 PT 11.6 Seconds (9.0-12.0) 11/02/24 PTT 25 Seconds (21-31) 11/02/24 INR 1.1 (0.9-1.1) 11/02/24 HA1c 5.4 % (4.5-5.6) 11/02/24 Blood Type O Positive 11/02/24 Antibody Screen NEGATIVE 11/02/24 Testing Electrocardiogram Date: 11/02/24 SR with first degree AVB at 76bpm. "Otherwise normal ECG" Chest X-Ray Date: 11/02/24 FINDINGS: Bilateral interstitial thickening and diffuse reticular opacities are noted, suggestive of chronic interstitial lung disease. No evidence of focal consolidation or pleural effusion. Heart size is within normal limits. Bones are osteopenic. Degenerative changes are present in the spine. IMPRESSION: Findings suggestive of chronic interstitial lung disease. Recommend clinical correlation. Echocardiogram Date: 07/28/22 EF 55-60%. LV wall motion is normal. No significant valvular disease.
--- NOTE | 2024-12-30 08:39 | History & Physical Report ---
Date of Service December 30, 2024 Assessment & Plan (1) Osteoarthritis of right knee: We will proceed with a right total knee arthroplasty. Postoperatively she will be started on aspirin for DVT prophylaxis and kept overnight hospital for postop medical management. She plans to have the hospital set up home health for discharge. History of Present Illness Chief Complaint: Osteoarthritis of the right knee. Primary Care Provider: Brody Quiroz MD Klarissa is a pleasant 69-year-old female who has been dealing with chronic increasing right knee pain. X-rays and clinical examination have been diagnostic for advanced arthritis of the right knee. She is using a cane and is often wheelchair-bound because of the right knee. After failed conservative treatment, she has elected to proceed with a right total knee arthroplasty. Allergies Allergy/AdvReac Type Severity Reaction Status Date / Time bee venom protein (honey bee) Allergy Severe Anaphylaxis Verified 12/23/24 11:34 fentanyl AdvReac Severe Cardiac Verified 12/23/24 11:34 arrest ampicillin AdvReac Intermediate Nausea Verified 12/23/24 11:34 Home Medications Medication Instructions Recorded Confirmed Type clonidine HCl 0.1 mg tablet 0.1 mg PO HS 09/25/18 12/23/24 History (Catapres) duloxetine 60 mg capsule,delayed 120 mg PO QAM 09/25/18 12/23/24 History release (Cymbalta) epinephrine 0.3 mg/0.3 mL 0.3 mg IM Q3H PRN Anaphylaxis 09/25/18 12/23/24 History injection, auto-injector (EpiPen) fenofibrate nanocrystallized 145 145 mg PO QAM 09/25/18 12/23/24 History mg tablet (Tricor) fluticasone propionate 50 2 spray intranasal DAILY PRN Sinus 09/25/18 12/23/24 History mcg/actuation nasal Symptoms spray,suspension (Flonase Allergy Relief) rkchuxawa-apu-ksed fumarate 18 1 tab-cap PO QAM 09/25/18 12/23/24 History mg-FA 600 mcg-vit K 40 mcg capsule (Multi For Her) nitroglycerin 0.4 mg sublingual 1 tab sublingual DIRECTED PRN 09/25/18 12/23/24 History tablet (Nitrostat) Chest Pain nystatin 100,000 unit/gram topical 1 applic topical BID PRN Rash 09/25/18 12/23/24 History powder (Nystop) omega 1-obf-bsh-fish oil 1,000 mg 1 cap PO QAM 09/25/18 12/23/24 History (120 mg-180 mg) capsule (Fish Oil) omeprazole 40 mg capsule,delayed 40 mg PO BID 09/25/18 12/23/24 History release albuterol sulfate 90 mcg/actuation 2 puff inhalation QID PRN 10/02/20 12/23/24 History aerosol inhaler Shortness Of Breath Or Wheezing furosemide 40 mg tablet (Lasix) 40 mg PO DAILY PRN Edema 10/02/20 12/23/24 History potassium chloride 20 mEq 20 meq PO QAM 10/02/20 12/23/24 History tablet,extended release(part/cryst) nifedipine 30 mg tablet,extended 30 mg PO QAM #30 tabs 07/31/22 12/23/24 Rx release 24 hr (Procardia XL) atorvastatin 40 mg tablet (Lipitor) 40 mg PO HS 03/18/24 12/23/24 History meclizine 12.5 mg tablet 12.5 mg PO TID 03/18/24 12/23/24 History metformin 500 mg tablet 500 mg PO BID 03/18/24 12/23/24 History semaglutide 0.25 mg or 0.5 mg (2 0.5 mg subcut WK wt loss 03/31/24 12/23/24 History mg/1.5 mL) subcutaneous pen injector oxycodone 10 mg tablet 10 mg PO QID PRN Pain 08/17/24 12/23/24 History gabapentin 800 mg tablet 800 mg PO TID 10/15/24 12/23/24 History quetiapine 100 mg tablet 100 mg PO QAM 10/15/24 12/23/24 History quetiapine 400 mg tablet 400 mg PO HS 10/15/24 12/23/24 History Past Med/Surg History Problem List (Updated 12/30/24 @ 08:39 by Juan Carlos Demarco DO) Osteoarthritis of right knee Elevated CK Elevated LFTs Encounter for pre-operative examination Medical History Cardiopulmonary arrest 2007 (CPR performed/successful)- "caused by Fentanyl patch/drug overdose", cardiac cath negative, no issues since Osteoarthritis RSD (reflex sympathetic dystrophy) Diabetes mellitus Seasonal allergies Chronic back pain "Unable to lay flat" Chronic kidney disease Stage III per records History of IBS GERD (gastroesophageal reflux disease) Depression Anxiety Hypertension Hyperlipidemia Surgical History History of left heart catheterization (LHC) "Normal coronaries following cardiopulmonary arrest caused by Fentanyl patch/drug overdose 2007" History of ankle surgery Left (Multiple), + Hardware Hx of spinal fusion Hardware present "4 cages" Removal previous hardware, decompression/ T11-L3 fusion (05/22/15): Grade view 1, MAC#3, ETT 7.0 at [facility] Hx of sinus surgery x2 Hx of laminectomy Hx of bilateral oophorectomy History of hysterectomy uterus and tubes History of bilateral tubal ligation History of cholecystectomy History of colonoscopy History of tooth extraction No bottom teeth History of cataract surgery R/L with lens implants Family History Brother Family history of diabetes mellitus Sister Family history of diabetes mellitus Other No family history of adverse response to anesthesia Social History Smoking Status: Former smoker Tobacco Type: Cigarettes Second Hand Exposure: No; Do You Dip or Chew Tobacco: No; Hx Alcohol Use: No Preferred Language: [place] Communication Ability: Effective Trade Specialist Required: No Beliefs That Will Affect Care: None marital status: Life Partner Current Living Situation: Spouse Feels Safe at Home: Yes Assistive Devices: Cane and Glasses Review of Systems All systems reviewed & are unremarkable except as noted in HPI & below. Physical Exam On physical exam of the right knee, she has a slight valgus deformity. Tenderness palpation of the distal lateral femoral condyle and over the lateral joint line.. Constitutional WD/WN, vitals as above Eyes PERRL, conjunctivae normal, anicteric sclerae ENMT external ear and nose normal, oropharynx normal Neck trachea midline, no thyromegaly Respiratory normal respiratory effort Cardiovascular RRR, no murmur, no edema Gastrointestinal (Abdomen) normal bowel sounds, soft, nontender, no hepatosplenomegaly Psychiatric A+Ox3, euthymic affect Results & Data Results & Data Laboratory Results . Diagnostic Findings X-rays of the right knee show advanced osteoarthritis with joint space narrowing osteophyte formation and qklw-fg-lbsr articulation.. PG Care Time/CCT Total # of Minutes Spent Total Time Spent with Patient: Total time spent is greater than 50% in coordination of care (as documented) at patient's floor/unit and/or counseling patient: Coding Level of Care Code None Diagnoses Osteoarthritis of right knee M17.11
[~2025-01-03 06:08] MED LIST: ACETAMINOPHEN 500 MG TAB PO SCH; FAMOTIDINE 20 MG TAB PO SCH; GABAPENTIN 300 MG CAP PO SCH; LR 500ML BOLUS, THEN 15ML/HR IV SCH; LR 60ML/HR IV SCH; ROPIV 0.5% 246mg, Ketorolac 30mg, EPINEPHrine 0.5mg in NSS INFIL SCH; TRANEXAMIC ACID 1,000 MG **IV Intra-op IV SCH; TRANEXAMIC ACID 1,000 MG **IV Pre-op IV SCH; ceFAZolin 2000MG 2,000 MG/15 ML SYR IV SCH; dexAMETHasone**PF** 10 MG/ML VIAL IV SCH
--- OUTSIDE RECORDS SUMMARY | 2025-01-03 06:16 | External Medical Summary | Summary of Care ---
Author Name Unknown Organization [facility] Address [address] [facility] [place] [address] Phone [phone] Care Team Providers Care Crane Rigger Name Role Phone Yahir Quiroz MD Primary Care Provide r Reason for Visit * Reason Comments eRx-Medication Refill Encounter Details Date Type Department Care Team (Late st Contact Info) Description 12/23/2024 Refill Family Medicine [address] [phone] Yahir Quiroz MD [address] [place] [address] [place] [id number] Dyslipidemia, goal LDL below 100 Allergies Active Allergy Reactions Criticality Noted Date Comments Ampicillin Nausea/vomiting High 09/27/2008 Fentanyl Other (Please comment) High 03/24/2013 Cardiac arrest Other - Environmental Edema face/lips/tongue High Bee stings documented as of this encounter (statuses as of 12/24/2024) Medications CYMBALTA 60 MG PO CPEPIndications:C hronic pain due to trauma 2 tabs daily in the morning 60 5 008 Active FISH OIL 1000 MG PO CAPS Take 1 Capsule by mouth in the morning. Active MULTI-VITAMIN PO TABS daily Active VITAMIN D 1000 UNITS PO TABS Take 1 Tablet by mouth every afternoon. Active SEROQUEL 400 MG PO TABS Take 0.5 Tablets by mouth at bedtime. Active ASPIRIN 81 MG PO TABS one tablet daily Active Docosanol (ABREVA) 10 % CREAIndications:R ecurrent cold sores Apply topically to affected area 5 times a day. to lesions on face or lips until healed. 2 g 5 016 Active loperamide (IMODIUM) 2 MG CapsuleIndication s:IBS (irritable bowel syndrome) 2 pills at onset for diarrhea and one pills after each loose stool as needed for diarrhea 60 Cap 2 018 Active Apoaequorin 10 MG Oral Capsule Take by mouth. Ac tive nystatin (NYAMYC) 819332 UNIT/GM powderIndications :Intertrigo Apply topically to affected area 2 times a day. Apply to affected area 30 g 1 020 Active AUG BETAMETHASONE DIPROPIONATE (DIPROLENE AF) 0.05 % cream Apply topically to affected area 2 times a day. Apply to affected area 50 g 1 020 Active Albuterol Sulfate HFA 108 (90 Base) MCG/ACT Inhalation Aerosol SolutionIndicatio ns:Wheezing Use two puffs four times a day as needed for wheezing or shortness of breath 54 g 1 021 Active EPINEPHrine 0.3 MG/0.3ML Injection Solution Auto-injector (Autoinjector) For a severe reaction: Inject in outer thigh following instructions on package and go to the Emergency room. 2 Each 5 021 Active Clobetasol Propionate 0.05 % External Cream (Temovate) Apply topically to affected area 2 times a day . 30 g 1 022 Active cloNIDine HCl 0.1 MG Oral Tablet (Catapres)Indicat ions:Hypertension goal BP (blood pressure) < 140/90 Take 1 Tablet (100 mcg) by mouth at bedtime. 30 Tablet 5 022 Active Diclofenac Sodium 1 % External Gel (Voltaren)Indicat ions:Primary osteoarthritis of both knees Apply 4 g topically to affected area 4 times a day as needed (knee and hip pain). 150 g 3 022 Active Fluocinolone Acetonide 0.01 % External Solution Apply topically to affected area 2 times a day. Apply to scalp 60 mL 3 023 Active Nitroglycerin 0.4 MG Sublingual Tablet Sublingual (Nitrostat)Indica tions:Chest pain PLACE 1 tablet under the tongue every 5 minutes as needed with chest pain up to 3 doses in 15 minutes 25 Tablet 5 023 Active predniSONE 20 MG Oral Tablet (Deltasone)Indica tions:Complicated bronchitis 1 tab 3 times a day for 3 days, then 1 tab 2 times a day for 3 days, then 1 tab daily for 3 days 18 Tablet 024 Active Lancets Test once a day E11.9 100 Each 11 024 Active Accu-Chek Guide In Vitro Strip (Glucose Blood)Indications :Type 2 diabetes mellitus with hemoglobin A1c goal of less than 8.0% (HCC) Test blood sugar once daily. E11.9 100 Strip 3 024 Active Accu-Chek Guide w/Device KitIndications:Ty pe 2 diabetes mellitus with hemoglobin A1c goal of less than 8.0% (HCC) Use as directed. Test blood sugar once daily E11.9 1 Kit 024 Active Accu-Chek Multiclix LancetsIndication s:Type 2 diabetes mellitus with hemoglobin A1c goal of less than 8.0% (HCC) Test once daily. E11.9 100 Each 3 024 Active Accu-Chek Natalie Plus w/Device Kit Test once daily. E11.9 1 Kit 024 Active Accu-Chek Natalie Plus In Vitro Strip (Glucose Blood) Test once daily E11.9 100 Strip 3 024 Active Accu-Chek Guide In Vitro Strip (Glucose Blood) Test blood sugar once daily. E11.9 100 Strip 3 024 Active Omeprazole 40 MG Oral Capsule Delayed Release (PriLOSEC)Indicat ions:Gastroesopha geal reflux disease without esophagitis TAKE ONE CAPSULE BY MOUTH TWICE DAILY 180 Capsule 3 024 Active Furosemide 40 MG Oral Tablet (Lasix)Indication s:Bilateral lower extremity edema TAKE ONE TABLET BY MOUTH DAILY NEEDED FOR SWELLING 90 Tablet 2 024 Active Potassium Chloride Karla ER 20 MEQ Oral Tablet Extended Release Take 1 Tablet by mouth in the morning. 90 Tablet 1 024 Active oxyCODONE HCl 10 MG Oral Tablet (Roxicodone) Take 1 Tablet by mouth 4 times a day as needed (pain). 024 Active Prevagen 10 MG Oral Capsule (Apoaequorin) Take by mouth. A ctive QUEtiapine Fumarate 200 MG Oral Tablet (SEROquel) Take 1 Tablet by mouth at bedtime. Active Naloxone HCl 4 MG/0.1ML Nasal Liquid (Narcan) Administer 0.1 mL into nostril as needed. Administer 1 spray into 1 nostril for suspected opioid overdose. Seek immediate medical attention. [email or web address] Active Azithromycin 250 MG Oral Tablet (Zithromax Z-Dante)Indications :Acute recurrent sinusitis, unspecified location Take two tablets by mouth on first day, then 1 tablet daily until gone 6 Tablet 024 Active NIFEdipine ER Osmotic Release 30 MG Oral Tablet Extended Release 24 Hour (Procardia XL)Indications:Hy pertension goal BP (blood pressure) < 140/90 Take 1 Tablet by mouth in the morning 90 Tablet 1 024 Active Meclizine HCl 12.5 MG Oral Tablet (Antivert)Indicat ions:Chronic pain due to trauma,Dizziness Take 1 Tablet by mouth 3 times a day as needed for Dizziness. 90 Tablet 5 024 Active Ozempic (2 MG/DOSE) 8 MG/3ML Subcutaneous Solution Pen-injector (Semaglutide (2 MG/DOSE))Indicati ons:Type 2 diabetes mellitus with hemoglobin A1c goal of less than 8.0% (HCC) Inject 2 mg under the skin once a week. 3 mL 5 024 Active Azelastine HCl 137 MCG/SPRAY Nasal SolutionIndicatio ns:Non-seasonal allergic rhinitis, unspecified trigger Administer 2 Sprays into each nostril in the morning and 2 Sprays before bedtime. 30 mL 5 024 Active Fluticasone Propionate 50 MCG/ACT Nasal Suspension (Flonase)Indicati ons:Allergic rhinitis, unspecified seasonality, unspecified trigger Administer 2 Sprays into each nostril in the morning. 16 g 5 024 Active Gabapentin 800 MG Oral Tablet (Neurontin)Indica tions:Chronic pain due to trauma Take 1 Tablet by mouth in the morning and 1 Tablet at noon and 1 Tablet before bedtime. 270 Tablet 1 025 Active metFORMIN HCl 500 MG Oral Tablet (Glucophage) Take 1 Tablet by mouth 2 times a day with morning and evening meals. 180 Tablet 3 025 Active Atorvastatin Calcium 40 MG Oral Tablet (Lipitor) Take 1 Tablet by mouth every night at bedtime. 90 Tablet 3 025 Active Fenofibrate 145 MG Oral Tablet (Tricor)Indicatio ns:Dyslipidemia, goal LDL below 100 TAKE ONE TABLET BY MOUTH EVERY DAY 90 Tablet 1 025 Active Fenofibrate 145 MG Oral Tablet (Tricor)Indicatio ns:Dyslipidemia, goal LDL below 100 TAKE ONE TABLET BY MOUTH EVERY DAY 90 Tablet 1 024 2024 Discontinued documented as of this encounter (statuses as of 12/24/2024) Active Problems Problem Noted Date Diagnosed Date Pulmonary fibrosis 11/10/2024 Non-seasonal allergic rhinitis 11/08/2024 Type 2 diabetes mellitus wit h hemoglobin A1c goal of less than 8.0% 12/02/2023 Morbid obesity due to excess calories 12/28/2018 Opioid dependence, uncomplicated 10/06/2018 Primary osteoarthritis of both knees 11/12/2016 Moderate episode of recurrent major depressive d isorder 07/08/2016 IBS (irritable bowel syndrome) 03/24/2013 Chronic pain due to trauma 08/25/2008 Postlaminectomy syndrome Hypertension goal BP (blood pressure) < 140/90 Dyslipidemia, goal LDL below 100 Anxiety GERD (gastroesophageal reflux disease) RSD lower limb Overview (03/24/2013): left--Dr. Colón TERMINATED MEDICATION USAGE AGREEMENT Overview (09/25/2022): Noncompliance with taper and management Ankle deformity documented as of this encounter (statuses as of 12/24/2024) Resolved Problems Problem Noted Date Diagnosed Date Resolved Date Hypertensive kidney disease with stage 3a chronic kidney disease 10/02/2020 12/25/2020 Overview: Per CKD protocol Hypertensive kidney disease with chronic kidney disease stage III 09/13/2019 09/13/2019 Hypertensive kidney disease with chronic kidney disease stage III 08/30/2019 10/05/2020 Overview: Per CKD protocol Prediabetes 01/04/2019 12/02/2023 Overview: Per Prediabetes protocol #1 Body mass index (BMI) of 40. 0 to 44.9 in adult 12/02/2017 06/01/2018 Overview: Per Obesity protocol #1 Body mass index (BMI) of 45. 0 to 49.9 in adult 07/22/2017 11/10/2017 Overview (08/24/2020): ICD-10 update of inactive term Cardiogenic shock 08/23/2008 04/18/2015 Acute lung edema 08/23/2008 03/24/2013 Chronic coronary artery disease 08/23/2008 03/24/2013 Electrolyte and fluid disorder 08/23/2008 03/24/2013 Hypopotassemia 08/23/2008 03/24/2013 Chronic kidney disease (CKD) , stage III (moderate) 09/08/2019 documented as of this encounter (statuses as of 12/24/2024) Immunizations Name Administration Dates Next Due COVID-19 mRNA, LNP-s, No Pre serve, 2-Dose Series (Moderna) 03/19/2021,02/19/2021 COVID-19, MRNA-LNP, PF, 30 M CG/0.3 mL, 12 YRS AND ABOVE, IM (PFIZER-Comirnaty) 10/03/2023 COVID-19, mRNA, LNP-s, PF, B ooster, 100mcg/0.5mg (Moderna) 05/14/2022,11/09/2021 Covid-19, Mrna, Lnp-s, Pf, B ivalent, 30 Mcg, IM, 12 yrs and above (Pfizer) 09/02/2022 Pneumococcal Conjugate Vacc, 13 Valent (Prevnar) 09/13/2019 Pneumococcal Polysaccharide PPV23 (Pneumovax) 09/13/2020(Deferred: Contraindication),09/28/2013, 8 RSV Vac., Recomb, Adjuvant, PF,0.5 Ml (Arexvy) 10/03/2023 Season Influenza, Quad, PF, Adjuvanted, 65+ Yrs, IM (FLUAD) 10/03/2023,11/09/2021,09/13/2020(Defer red: Contraindication) Seasonal Influenza Vac., MDV , IM, 0.5 mL (Fluzone) 09/28/2014,09/28/2013 Seasonal Influenza, PF, 6 M & above, IM , (FluLaval or Fluzone) 10/06/2018,09/09/2017 Seasonal Influenza, Quadriva lent Hd (Fluzone Hd) 08/19/2022,08/24/2021 Seasonal Influenza, Quadriva lent, No Preserve, IM 11/12/2016,08/22/2015 Seasonal Influenza, Trivalen t, Adjuvanted, 65+ YRS, PF, (Fluad) 10/02/2020,09/13/2019 TDAP (age 10 and older)(Boostrix) 07/14/2013 documented as of this encounter Social History Tobacco Use Types Packs/Day Years Used Date Smoking Tobacco: Former Cigarettes Q uit: 11/24/1977 Smokeless Tobacco: Never Comments:smoked short time i n her 20s Alcohol Use Standard Drinks/Week Comments No 0 (1 standard drink = 0.6 oz pur e alcohol) PHQ-2 Answer Date Recorded PHQ Adult Total Score 0 11/08/2024 Hunger Vital Sign Answer Date Recorded Worried About Running Out of Food in the Last Ye ar Never true 07/24/2020 Ran Out of Food in the Last Year Never true 07/24/2020 Comments No Sex and Gender Information Value Date Recorded Sex Assigned at Not on file Legal Sex Female 7:15 AM EST Gender Identity Not on file Sexual Orientation Not on file documented as of this encounter Miscellaneous Notes * Telephone Encounter - Yaima Bro, [facility] - 12/24/2024 8:47 AM ESTSigned Prescriptions: Disp Refills Fenofibrate 145 MG Oral Tablet (Tricor) 90 Tab*1 Sig: TAKE ONE TABLET BY MOUTH EVERY DAYAuthorizing Provider: YAHIR QUIROZ User: YAIMA BRO documented in this encounter Plan of Treatment Upcoming Encounters Date Type Department Care Team (Late st Contact Info) Description 05/30/2025 4:00 PM EDT Office Visit Family [address] [place] [phone] Yahir Quiroz MD [address] [place] [address] [place] [phone] Scheduled Procedures Name Priority Associated Diagnoses Date/Ti me COLONOSCOPY FLEXIBLE PROXIMA L DIAGNOSTIC Recall Special screening for malignant neoplasms, colon Health Maintenance Due Date Last Done Comments Diabetic Foot Exam 1972 Colonoscopy 1999 Sigmoidoscopy 1999 Zoster Vaccines (1 of 2) 2004 DXA Scan 04/04/2018 04/04/2011 Fecal Occult Blood Test 01/15/2019 01/15/2018, 10/15 Adult Wellness Visit 2020 Mammogram 03/12/2022 03/12/2021, 03/0 11/2017, 02/27/2015, Additional history exists Cologuard 05/11/2022 05/11/2019 Colorectal Cancer Screening 05/11/2022 DTap/Tdap Vaccines (2 - Td or Tdap) 07/14/2023 07/14/2013 COVID-19 Vaccine ( season) 2024 08/09/2024, 10/03/2023, 09/02/2022, Additional history exists Diabetic Eye Exam 02/25/2025 02/26/2024 HbA1c 05/03/2025 11/02/2024, 08/24, 11/28/2023, Additional history exists Albumin/Creatinine Ratio 09/10/2025 024, 11/28/2023, 03/05/2021, Additional history exists GFR 11/02/2025 11/02/2024, 08/24, 11/28/2023, Additional history exists Depression Monitoring 11/08/2025 11/08/2024 Lipid Panel 09/10/2029 09/10/2024, 01/0 03/2024, 05/30/2022, Additional history exists Pneumococcal Vaccine: 50+ Years Completed 10/02/2020, 09/13/2019, 09/28/2013, Additional history exists Influenza Vaccine (FLU shot) Completed , 10/03/2023, 08/19/2022, Additional history exists HPV (Gardasil) Vaccine Aged Out No lo nger eligible based on patient's age to complete this topic Hepatitis B Vaccine Aged Out No longe r eligible based on patient's age to complete this topic MENINGOCOCCAL (MENACTRA/MENVEO) Aged Out No longer eligible based on patient's age to complete this topic documented as of this encounter Medical Devices Not on filedocumented as of this encounter Visit Diagnoses Diagnosis Dyslipidemia, goal LDL below 100 Other and unspecified hyperlipidemia documented in this encounter Advance Directives * Full Code (Latest Code Status on File) Date Activated Date Inactivated Comments 08/23/2008 8:29 AM 08/27/2008 6:36 PM Care Teams Crane Rigger Relationship Specialty Start Date End Date Yahir Quiroz MD [address] [place] [address] [place] [phone] PCP - General Family Medicine 09/20/24 documented as of this encounter
--- OUTSIDE RECORDS SUMMARY | 2025-01-03 06:17 | External Medical Summary | Summary of Care ---
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 Name Role Phone Brody Quiroz MD Primary Care Provide r Reason for Referral * Ancillary Services (Within 30 days (routine)) - Authorized Specialty Diagnoses / Procedures Referred By Contlillie t Referred To Contact Gastroenterology Diagnoses Special screening for malignant neoplasms, colon Brody Quiroz MD [address] [place] [address] [place] [id number] Phone: tel: fax: Referral ID Status Reason Start Date Expiration Date Visits Requested Visits Authorized [id number] Authorized Ancillary Services Required 4 [phone] Question Answer Referral Priority Within 30 days (routine) Where should this appointment be scheduled? [facility] Comments ALERT: Do not order for pediatric patients (18 years or younger). Cancel off screen and order PEDS GASTROENTEROLOGY CONSULT (Type: 1 visit only-Evaluate and Treat) The following Pt. Instructions are available: - Gastro Colonoscopy Prep Instructions [[id number]] - Gastro Colonoscopy Prep Instructions (Syriac Version) [[id number]] Go to the Pt. Instructions section within the Visit Navigator to access. Colonoscopy ASGE Guidelines: Average risk screening (begin at age 50, 10 year intervals) ADDITIONAL INFORMATION 1. Is the patient on Coumadin? No 2. Is the patient on Pradaxa? No Reason for Visit * Reason Comments Re-Check Encounter Details Date Type Department Care Team (Late st Contact Info) Description 11/08/2024 1:00 PM EST Office Visit Family Medicine [address] [place] [address] Brody Quiroz MD [address] [place] [address] [place] [id number] Type 2 diabetes mellitus with hemoglobin A1c goal of less than 8.0% ([facility])*; Special screening for malignant neoplasms, colon; Hypertension goal BP (blood pressure) < 140/90; Dyslipidemia, goal LDL below 100; Chronic pain due to trauma; Allergic rhinitis, unspecified seasonality, unspecified trigger; Non-seasonal allergic rhinitis, unspecified trigger; Skin lesion; Encounter for long-term (current) use of medications Allergies Active Allergy Reactions Criticality Noted Date Comments Ampicillin Nausea/vomiting High 09/27/2008 Fentanyl Other (Please comment) High 03/24/2013 Cardiac arrest Other - Environmental Edema face/lips/tongue High Bee stings documented as of this encounter (statuses as of 11/08/2024) Medications CYMBALTA 60 MG PO CPEPIndications:C hronic [...] Take by mouth. Ac tive nystatin (NYAMYC) 447193 UNIT/GM powderIndications :Intertrigo Apply topically to affected [...] for 3 days 18 Tablet 024 Active metFORMIN HCl 500 MG Oral Tablet (Glucophage) Take 1 Tablet by mouth 2 times a day with morning and evening meals. 180 Tablet 3 024 Active Atorvastatin Calcium 40 MG Oral Tablet (Lipitor) Take 1 Tablet by mouth every night at bedtime. 90 Tablet 3 024 Active Lancets Test once a day [...] FOR SWELLING 90 Tablet 2 024 Active Fenofibrate 145 MG Oral Tablet (Tricor)Indicatio ns:Dyslipidemia, goal LDL below 100 TAKE ONE TABLET BY MOUTH EVERY DAY 90 Tablet 1 024 Active Potassium Chloride Karla ER 20 MEQ Oral Tablet Extended Release Take 1 Tablet by mouth in the morning. 90 Tablet 1 024 Active oxyCODONE HCl 10 MG Oral Tablet (Roxicodone) Take 1 Tablet by mouth 4 times a day as needed (pain). Active Prevagen 10 MG Oral Capsule (Apoaequorin) Take by mouth. A ctive QUEtiapine Fumarate 200 MG Oral Tablet (SEROquel) Take 1 Tablet by mouth at bedtime. Active Naloxone HCl 4 MG/0.1ML Nasal Liquid (Narcan) Administer 0.1 mL into nostril as needed. Administer 1 spray into 1 nostril for suspected opioid overdose. Seek immediate medical attention. [email or web address]? [email or web address] Active Azithromycin 250 MG Oral Tablet (Zithromax Z-Dante)Indications :Acute recurrent sinusitis, unspecified location Take two tablets by mouth on first day, then 1 tablet daily until gone 6 Tablet Active NIFEdipine ER Osmotic Release 30 MG Oral Tablet Extended Release 24 Hour (Procardia XL)Indications:Hy pertension goal BP (blood pressure) < 140/90 Take 1 Tablet by mouth in the morning 90 Tablet 1 Active Meclizine HCl 12.5 MG Oral Tablet (Antivert)Indicat ions:Chronic pain due to trauma,Dizziness Take 1 Tablet by mouth 3 times a day as needed for Dizziness. 90 Tablet 5 024 Active Gabapentin 800 MG Oral Tablet (Neurontin)Indica tions:Chronic pain due to trauma Take 1 Tablet by mouth in the morning and 1 Tablet at noon and 1 Tablet before bedtime. 024 Active Gabapentin 100 MG Oral Capsule (Neurontin)Indica tions:Chronic pain due to trauma Take 2 Capsules by mouth in the morning and 2 Capsules at noon and 2 Capsules before bedtime. Take 2 capsules 3 times a day with 600 mg tablet to equal 800 mg three times a day. 180 Capsule Active Ozempic (2 MG/DOSE) 8 MG/3ML Subcutaneous Solution Pen-injector (Semaglutide (2 MG/DOSE))Indicati ons:Type 2 diabetes mellitus with hemoglobin A1c goal of less than 8.0% ([facility]) Inject 2 mg under the skin once [...] the morning. 16 g 5 024 Active Fluticasone Propionate 50 MCG/ACT Nasal Suspension (Flonase)Indicati ons:Allergic rhinitis, unspecified seasonality, unspecified trigger Administer 2 Sprays into each nostril in the morning. 16 g 5 024 2023 Discontinued(R efill) Lovastatin 10 MG Oral Tablet Take 1 Tablet by mouth every evening. 2023 Discontinued Ozempic (1 MG/DOSE) 4 MG/3ML Subcutaneous Solution Pen-injector (Semaglutide (1 MG/DOSE))Indicati ons:Type 2 diabetes mellitus with hemoglobin A1c goal of less than 8.0% (HCC) Inject 1 mg under the skin once a week. 9 mL 1 024 2023 Discontinued Gabapentin 600 MG Oral Tablet (Neurontin)Indica tions:Chronic pain due to trauma Take 1 Tablet by mouth in the morning and 1 Tablet at noon and 1 Tablet before bedtime. 90 Tablet 5 024 2023 Discontinued documented as of this encounter (statuses as of 11/08/2024) Active Problems Problem Noted Date Diagnosed Date Non-seasonal allergic rhinitis 11/08/2024 Type 2 diabetes [...] as of this encounter (statuses as of 11/08/2024) Resolved Problems Problem Noted Date Diagnosed Date [...] as of this encounter (statuses as of 11/08/2024) Immunizations Name Administration Dates Next Due COVID-19 mRNA, LNP-s, No Pre serve, 2-Dose Series (Moderna) 03/19/2021,02/19/2021 COVID-19, MRNA-LNP, PF, 30 M CG/0.3 mL, 12 YRS AND ABOVE, IM (PFIZER-Comirnat) 10/03/2023 COVID-19, mRNA, LNP-s, PF, B ooster, [...] on file documented as of this encounter Last Filed Vital Signs Vital Sign Reading Time Taken Comments Blood Pressure 102/54 11/08/2024 12:57 PM EST Pulse 68 11/08/2024 12:57 PM EST Temperature 36.3 C (97.3 F) 11/08/2024 12:[address] Respiratory Rate - - Oxygen Saturation - - Inhaled Oxygen Concentration - - Weight 95.3 kg (210 lb) 11/08/2024 12:57 PM EST Height 167.6 cm (5' 6") 11/08/2024 12:57 PM EST Body Mass Index 33.89 11/08/2024 12:57 PM EST documented in this encounter Patient Instructions * Patient Instructions* Ashanti Miller LPN - 11/08/2024 12:52 PM EST Images from the original note were not included. Colorectal Cancer Screening Colorectal cancer (cancer in the colon or rectum) is a leading cause of cancer deaths in the [place] But it doesnt have to be. When this cancer is found and removed early, the chances of a full recovery are very good. Because colorectal cancer rarely causes symptoms in its early stages, screening for the disease is important. Its even more crucial if you have risk factors for the disease. Learn more about colorectal cancer and its risk factors. Then talk to your healthcare provider about being screened. You could be saving your own life. Risk factors for colorectal cancer Your risk of having colorectal cancer increases if you: Are 50 years of age or older Have a family history or personal history of colorectal cancer or polyps Have a personal history of type 2 diabetes, Crohns disease, or ulcerative colitis Have an inherited genetic syndrome like Garibay syndrome (also known as HNPCC) or familial adenomatous polyposis (FAP) Are very overweight Are not physically active Smoke Drink a lot of alcohol Eat a lot of red or processed meat The colon and rectum Waste from food you eat enters the colon from the small intestine. As it travels through the colon,the waste (stool) loses water and becomes more solid. Intestinal muscles push it toward the sigmoid--the last section of the colon. Stool then moves into the rectum, where its stored until its ready to leave the body during a bowel movement. How cancer develops Polyps are growths that form on the inner lining of the colon or rectum. Most are benign, which means they arent cancerous. But over time, some polyps can become cancer (malignant). This happens when cells in these polyps begin growing abnormally. In time, malignant cells invade more and more ofthe colon and rectum. The cancer may also spread to nearby organs or lymph nodes or to other parts of the body. Finding and removing polyps can help prevent cancer from ever forming. Your screening Screening means looking for a health problem before you have symptoms. During screening for colorectal cancer, your healthcare provider will ask about your health history, examine you, and do one or more tests. History and exam The history and exam involve the following: Health history. Your healthcare provider will ask about your health history. Mention if a family member has had colon cancer or polyps. Also mention any health problems you have had in the past. Digital rectal exam (MARLENY). During a MARLENY, the healthcare provider inserts a lubricated gloved fingerinto the rectum. The test is painless and takes less than a minute. Healthcare providers agree thatthis test alone is not enough to screen for colorectal cancer. Screening test choices: Fecal occult blood test (FOBT) or fecal immunochemical test (FIT) These tests check for occult blood in stool (blood you cant see). Hidden blood may be a sign of colon polyps or cancer. A small sample of stool is tested for blood in a laboratory. Most often, youcollect this sample at home using a kit your healthcare provider gives you. Follow the instructionscarefully for using this kit. You might need to avoid certain foods and medicines before the test, as directed. Barium enema with contrast (double-contrast barium enema) This test uses X-rays to provide images of the entire colon and rectum. The day before this test, you will need to do a bowel prep to clean out the colon and rectum. A bowel prep is a liquid diet plus strong laxatives or enemas. You will be awake for the test, but you may be given medicine to help you relax. At the start of the test, a radiologist (a healthcare provider who specializes in imagingtests) places a soft tube into the rectum. The tube is used to fill the colon with a contrast liquid (barium) and air. This can be uncomfortable for some people. The liquid helps the colon show up clearly on the X-rays. Because the test uses X-rays, it exposes you to a small amount of radiation. Virtual colonoscopy This exam is also called a CT colonography. It uses a series of X-ray photographs to create a 3-D view of the colon and rectum. The day before the test, you will need to do a bowel prep to clean out your colon. Your healthcare provider will give you instructions on how to do this. During the procedure, you will lie on a table that is part of a special X-ray machine called a CT scanner. A small tube will be placed into your rectum to fill the colon and rectum with air. This can be uncomfortable for some people. Then, the table will move into the machine and pictures will be taken of your colonand rectum. A computer will combine these photos to create a 3-D picture. Because the test uses X-rays, it exposes you to a small amount of radiation. Cologuard Cologuard is an easy to use, noninvasive colon cancer screening test that you can use in the privacy of your own home. It identifies altered DNA and/or blood in stool, which are associated with the possibility of colon cancer or precancer. DNA is continuously shed from cells in the intestinal lining, where it is passed into the stool. Ifcancer or precancer is present, abnormal cells will shed into the colon and stool along with normalcells. A molecular biology process is used to capture specific pieces of DNA for further analysis. Scope exams Here are two types of scope exams: Colonoscopy. This test can be used to find and remove polyps anywhere in the colon or rectum. The day before the test, you will do a bowel prep. This is a liquid diet plus a strong laxative solution or an enema. The bowel prep will cleanse your colon. You will be given instructions for this. Just before the test, you are given a medicine to make you sleepy. Then, a long, flexible, lighted tube called a colonoscope is gently inserted into the rectum and guided through the entire colon. Images ofthe colon are viewed on a video screen. Any polyps that are found are removed and sent to a lab fortesting. If a polyp cant be removed, a sample of tissue is taken and the polyp might be removed l ater during surgery. You will need to bring someone with you to drive you home after this test. Sigmoidoscopy. This test is similar to colonoscopy, but focuses only on the sigmoid colon and rectum. As with colonoscopy, bowel prep must be done the day before this test. It might not need to be ascomplete as the bowel prep for a colonoscopy. You are awake during the procedure, but you may be given medicine to help you relax. During the test, the healthcare provider guides a thin, flexible, lighted tube called a sigmoidoscope through your rectum and lower colon. The images are displayed on avideo screen. Polyps are removed, if possible, and sent to a lab for testing. Colonoscopy is the only screening test that lets your healthcare provider see the entire colon and rectum. This test also lets your healthcare provider remove any pieces of tissue that need to be looked at by a lab. If something suspicious is found using any other tests, you will likely need a colonoscopy. When to call your healthcare provider after a test Call your healthcare provider if you have any of the following after any screening test: Bleeding Fever of 100.4F (38C) or higher, or as directed by your healthcare provider Abdominal pain Vomiting Date Last Reviewed: 09/27/201519995764-8994 [employer]. [address] [place] [address]. All rights reserved. This information is not intended as a substitute for professional medical care. Always follow your healthcare professional's instructions. documented in this encounter Progress Notes * Brody Quiroz MD - 11/08/2024 1:10 PM EST Subjective: Klarissa Haider is a 69 year old female. Chief Complaint Patient presents with Re-Check HPI: Brief Clinical History Ms. Haider is a 69 year old female last seen in Family Medicine [facility] on 09/10/2024 by Gabriella Pichardo She has a h/o the following chronic conditions indicated on the problem list: Chronic Conditions TERMINATED MEDICATION USAGE AGREEMENT Type 2 diabetes mellitus with hemoglobin A1c goal of less than 8.0% ([facility]) Was doing better on gabapentin 800 mg three times a day. Got inadvertently lowered to 600 mg at last office visit. Has been losing weight with the Ozempic. Blood sugars are much better. Last A1C was at goal at 6.0 on 09/10/24. Throat is raw and sore all the time. Her ears hurt a lot and they are hurting now again. She does use Flonase. Has been putting Vicks on a cotton ball in her ear at night because it is hurting at night. Was treated with Abx in August for similar symptoms. Has taken Zyrtec and has not helped. Is scheduled for right knee replacement at [facility] by Dr. Demarco on 11/19/24. Has been getting injections for a long time. Her left knee will eventually need to be replaced as well. Follows at pain clinic for chronic narcotics. Follows with psychiatry. Results for orders placed or performed in visit on 11/04/24 CHEMISTRY-OUTSIDE Result Value Ref Range Not all results display below - see scan for full detail CREATININE 1.02 0.6 - 1.2 MG/DL EGFR 59.18 ML/MIN POTASSIUM 4.4 3.5 - 5.1 MMOL/L GLUCOSE 96 70 - 99 MG/DL HOURS FASTING TRIGLYCERIDES-OUTSIDE LAB CHOLESTEROL-OUTSIDE LAB HDL-OUTSIDE LAB CHOL/HDL RATIO-OUTSIDE LAB LDL (CALCULATED)-OUTSIDE LAB LDL (DIRECT MEASURE)-OUTSIDE LAB HEMOGLOBIN, [id number] LAB 5.4 4.5 - 5.6 % PHOSPHORUS-OUTSIDE LAB PTH-OUTSIDE LAB MICROALBUMIN RATIO-OUTSIDE LAB PROTEIN, UA-OUTSIDE LAB HGB 12.7 12.0 - 16.0 G/DL Hemoglobin AIC Results: Lab Results Component Value Date/Time HEMOGLOBIN A1C - [facility] 6.0 (H) 09/10/2024 12:44 PM HEMOGLOBIN A1C - [facility] 7.6 (H) 11/28/2023 02:17 PM HEMOGLOBIN A1C - [facility] 6.2 (H) 05/30/2022 12:35 PM HEMOGLOBIN A1C - [facility] 6.1 (H) 12/28/2018 01:43 PM PHM: Patient Active Problem List Diagnosis Chronic pain due to trauma Postlaminectomy syndrome Hypertension goal BP (blood pressure) < 140/90 Dyslipidemia, goal LDL below 100 Anxiety GERD (gastroesophageal reflux disease) IBS (irritable bowel syndrome) RSD lower limb TERMINATED MEDICATION USAGE AGREEMENT Ankle deformity Moderate episode of recurrent major depressive disorder (HCC) Primary osteoarthritis of both knees Opioid dependence, uncomplicated (HCC) Morbid obesity due to excess calories (HCC) Type 2 diabetes mellitus with hemoglobin A1c goal of less than 8.0% (HCC) Current Outpatient Medications Medication Sig Dispense Refill CYMBALTA 60 MG PO CPEP 2 tabs daily in the morning 60 5 FISH OIL 1000 MG PO CAPS Take 1 Capsule by mouth in the morning. MULTI-VITAMIN PO TABS daily VITAMIN D 1000 UNITS PO TABS Take 1 Tablet by mouth every afternoon. SEROQUEL 400 MG PO TABS Take 0.5 Tablets by mouth at bedtime. ASPIRIN 81 MG PO TABS one tablet daily Docosanol (ABREVA) 10 % CREA Apply topically to affected area 5 times a day. to lesions on face or lips until healed. 2 g 5 loperamide (IMODIUM) 2 MG Capsule 2 pills at onset for diarrhea and one pills after each loose stool as needed for diarrhea 60 Cap 2 Apoaequorin 10 MG Oral Capsule Take by mouth. nystatin (NYAMYC) 741477 UNIT/GM powder Apply topically to affected area 2 times a day. Apply to affected area 30 g 1 AUG BETAMETHASONE DIPROPIONATE (DIPROLENE AF) 0.05 % cream Apply topically to affected area 2 timesa day. Apply to affected area 50 g 1 Albuterol Sulfate HFA 108 (90 Base) MCG/ACT Inhalation Aerosol Solution Use two puffs four times a day as needed for wheezing or shortness of breath 54 g 1 EPINEPHrine 0.3 MG/0.3ML Injection Solution Auto-injector (Autoinjector) For a severe reaction: Inject in outer thigh following instructions on package and go to the Emergency room. 2 Each 5 Clobetasol Propionate 0.05 % External Cream (Temovate) Apply topically to affected area 2 times a day . 30 g 1 cloNIDine HCl 0.1 MG Oral Tablet (Catapres) Take 1 Tablet (100 mcg) by mouth at bedtime. 30 Tablet 5 Diclofenac Sodium 1 % External Gel (Voltaren) Apply 4 g topically to affected area 4 times a day asneeded (knee and hip pain). 150 g 3 Fluocinolone Acetonide 0.01 % External Solution Apply topically to affected area 2 times a day. Apply to scalp 60 mL 3 Nitroglycerin 0.4 MG Sublingual Tablet Sublingual (Nitrostat) PLACE 1 tablet under the tongue every5 minutes as needed with chest pain up to 3 doses in 15 minutes 25 Tablet 5 Fluticasone Propionate 50 MCG/ACT Nasal Suspension (Flonase) Administer 2 Sprays into each nostril in the morning. 16 g 5 predniSONE 20 MG Oral Tablet (Deltasone) 1 tab 3 times a day for 3 days, then 1 tab 2 times a day for 3 days, then 1 tab daily for 3 days 18 Tablet 0 metFORMIN HCl 500 MG Oral Tablet (Glucophage) Take 1 Tablet by mouth 2 times a day with morning andevening meals. 180 Tablet 3 Atorvastatin Calcium 40 MG Oral Tablet (Lipitor) Take 1 Tablet by mouth every night at bedtime. 90 Tablet 3 Lancets Test once a day E11.9 100 Each 11 Accu-Chek Guide In Vitro Strip (Glucose Blood) Test blood sugar once daily. E11.9 100 Strip 3 Accu-Chek Guide w/Device Kit Use as directed. Test blood sugar once daily E11.9 1 Kit 0 Accu-Chek Multiclix Lancets Test once daily. E11.9 100 Each 3 Accu-Chek Natalie Plus w/Device Kit Test once daily. E11.9 1 Kit 0 Accu-Chek Natalie Plus In Vitro Strip (Glucose Blood) Test once daily E11.9 100 Strip 3 Accu-Chek Guide In Vitro Strip (Glucose Blood) Test blood sugar once daily. E11.9 100 Strip 3 Omeprazole 40 MG Oral Capsule Delayed Release (PriLOSEC) TAKE ONE CAPSULE BY MOUTH TWICE DAILY 180 Capsule 3 Furosemide 40 MG Oral Tablet (Lasix) TAKE ONE TABLET BY MOUTH DAILY NEEDED FOR SWELLING 90 Tablet 2 Fenofibrate 145 MG Oral Tablet (Tricor) TAKE ONE TABLET BY MOUTH EVERY DAY 90 Tablet 1 Potassium Chloride Karla ER 20 MEQ Oral Tablet Extended Release Take 1 Tablet by mouth in the morning. 90 Tablet 1 Lovastatin 10 MG Oral Tablet Take 1 Tablet by mouth every evening. oxyCODONE HCl 10 MG Oral Tablet (Roxicodone) Take 1 Tablet by mouth 4 times a day as needed (pain). Prevagen 10 MG Oral Capsule (Apoaequorin) Take by mouth. QUEtiapine Fumarate 200 MG Oral Tablet (SEROquel) Take 1 Tablet by mouth at bedtime. Naloxone HCl 4 MG/0.1ML Nasal Liquid (Narcan) Administer 0.1 mL into nostril as needed. Administer 1 spray into 1 nostril for suspected opioid overdose. Seek immediate medical attention. [email or web address]?[email or web address] Azithromycin 250 MG Oral Tablet (Zithromax Z-Dante) Take two tablets by mouth on first day, then 1 tablet daily until gone 6 Tablet 0 Ozempic (1 MG/DOSE) 4 MG/3ML Subcutaneous Solution Pen-injector (Semaglutide (1 MG/DOSE)) Inject 1 mg under the skin once a week. 9 mL 1 NIFEdipine ER Osmotic Release 30 MG Oral Tablet Extended Release 24 Hour (Procardia XL) Take 1 Tablet by mouth in the morning 90 Tablet 1 Gabapentin 600 MG Oral Tablet (Neurontin) Take 1 Tablet by mouth in the morning and 1 Tablet at noon and 1 Tablet before bedtime. 90 Tablet 5 Meclizine HCl 12.5 MG Oral Tablet (Antivert) Take 1 Tablet by mouth 3 times a day as needed for Dizziness. 90 Tablet 5 No current facility-administered medications for this visit. Past Medical History: Diagnosis Date Ankle deformity left Anxiety Dr. Ji in [place] Chronic kidney disease (CKD), stage III (moderate) (HCC) Dyslipidemia, goal LDL below 130 Encounter for hepatitis C screening test for low risk patient 04/22/2017 negative GERD (gastroesophageal reflux disease) Hypertension goal BP (blood pressure) < 140/90 MEDICATION USE AGREEMENT 03/24/2013 MS Contin and Percocet--Richie Postlaminectomy syndrome Dr. Canela RSD lower limb left--Dr. Colón Past Surgical History: Procedure Laterality Date CATHETERIZE LEFT HEART THRU SKIN 08/25/2008 LEFT HEART CATH, PERCUTANEOUS [place] SWAPNIL PAULINO [place] [facility] [place] normal per patient--[facility] Gastro EGD, FLEXIBLE, DIAGNOSTIC 2006 normal per patient--Rm Gastro FUSION OF ANKLE JOINT 2007 left LAMINECTOMY/LAMINOTOMY, LUMBAR, GUIDE 2005 MISCELLANEOUS ORDER ([facility] ONLY) 2004 left tib/fib fx s/p fall MISCELLANEOUS ORDER ([facility] ONLY) 2006 left akle ORIF MISCELLANEOUS ORDER ([facility] ONLY) 2012 spinal fusion MISCELLANEOUS ORDER ([facility] ONLY) 05/22/2015 extensive lumbar surgery--[facility] REMOVE CATARACT, INSERT LENS PROSTH 2009 and 2010 bilateral TOTAL ABD HYSTERECTOMY W/WO REMOVAL OF TUBE(S) 1982 US HEAD AND NECK 05/30/2022 Several subcentimeter bilateral thyroid nodules without any suspicious features Social History Socioeconomic History Marital status: Spouse name: Not on file Number of children: Not on file Years of education: Not on file Highest education level: Not on file Occupational History Not on file Tobacco Use Smoking status: Former Current packs/day: 0.00 Types: Cigarettes Quit date: 11/24/1977 Years since quittin.9 Smokeless tobacco: Never Tobacco comments: smoked short time in her 20s Substance and Sexual Activity Alcohol use: No Drug use: No Sexual activity: Not Currently Other Topics Concern Not on file Social History Narrative Not on file Social Needs Financial Resource Strain: Not on file Food Insecurity: No Food Insecurity (07/24/2020) Hunger Vital Sign Worried About Running Out of Food in the Last Year: Never true Ran Out of Food in the Last Year: Never true Transportation Needs: Not on file Social Connections: Not on file Housing Stability: Not on file Review of patient's allergies indicates: Allergen Reactions Ampicillin Nausea/vomiting Duragesic Disc Transdermal System [Fentanyl] Other (Please comment) Cardiac arrest Other - Environmental Edema face/lips/tongue Bee stings Objective: BP 102/54 | Pulse 68 | Temp 97.3 F (36.3 C) (Tympanic) | Ht 5' 6" (1.676 m) | Wt 210 lb (95.3 kg) | BMI 33.89 kg/m | BSA 2.11 m Physical Exam: General: alert, no distress, well nourished, and well developed Head: Normocephalic, No masses, lesions, tenderness or abnormalities Eye Exam: PERRLA, extraocular movements intact, conjunctiva are pink and non- injected, sclera clear Ears: left external ear with erythematous skin lesion with scab, Canals clear, R TM air and or fluid interface, L TM air and or fluid interface Nose: no mucosal erythema, no mucosal edema, no purulent discharge, pale mucosa Oropharynx: no exudate, no erythema, lips, buccal mucosa, and tongue normal, mucous membranes are moist, and post nasal drip Neck: supple, no adenopathy, no bruits Heart: regular rate & rhythm, no murmur, and no gallops Lungs: chest symmetric with normal AP diameter, no chest deformities noted, no chest wall tenderness, lungs clear to auscultation Extremities: no edema, no clubbing, no cyanosis Neuro Exam: alert & oriented x 3 with fluent speech, no focal motor/sensory deficits, seated arsen wheelchair Extensive ROS Constitutional (f/c/wt/vision/hearing): see above hpi Resp (cough/sob/xie): Negative CV (cp/palp/fluttering/diaphoresis/xie/pnd):Negative GI (n/v/d/hrtburn): +GERD controlled with PPI Endo (hair/cold or heat intol/ 3 p's): +type 2 diabetes mellitus Neuro (shaking/weak/fatigu/parasthesi/): Negative Skin (rash/easy bruis/xerosis): see above hpi Psy (si/hi/halluc/): see above hpi (nocturia/hesit/drib/sexual review): Negative Lymph (swollen glands/b sx's/: Negative ASSESSMENT: Type 2 diabetes mellitus with hemoglobin A1c goal of less than 8.0% ([facility]) (Primary)--controlled with Ozempic. Has also lost about 100 pounds. Increase dose to 2 mg weekly. Has been tolerating well. Check labs in about 3 months. - Ozempic (2 MG/DOSE) 8 MG/3ML Subcutaneous Solution Pen-injector (Semaglutide (2 MG/DOSE)); Inject2 mg under the skin once a week. - HEMOGLOBIN A1C; Future; Expected date: 02/06/2025 - BASIC METABOLIC PANEL; Future; Expected date: 02/06/2025 Special screening for malignant neoplasms, colon - COLONOSCOPY, GI REFERRAL OP Hypertension goal BP (blood pressure) < 140/90--controlled with nifedipine 30 mg daily. - BASIC METABOLIC PANEL; Future; Expected date: 02/06/2025 Dyslipidemia, goal LDL below 100--controlled with atorvastatin 40 mg daily. Chronic pain due to trauma--dose inadvertently changed back to 600 mg at her last office visit but had been taking 800 mg TID. Sent enough 100 mg tablets to take with the 600 mg to equal 800 mg TID for the next month. Will then call for a refill of the 800 mg TID. - Gabapentin 100 MG Oral Capsule (Neurontin); Take 2 Capsules by mouth in the morning and 2 Capsules at noon and 2 Capsules before bedtime. Take 2 capsules 3 times a day with 600 mg tablet to equal 800 mg three times a day. Allergic rhinitis, unspecified seasonality, unspecified trigger--with ongoing postnasal drip, sore throat, and ear pain. Restart Flonase and add Azelastine. - Fluticasone Propionate 50 MCG/ACT Nasal Suspension (Flonase); Administer 2 Sprays into each nostril in the morning. Non-seasonal allergic rhinitis, unspecified trigger - Azelastine HCl 137 MCG/SPRAY Nasal Solution; Administer 2 Sprays into each nostril in the morningand 2 Sprays before bedtime. Skin lesion--scabbed lesion of ear. Patient states it has been present just for a week or two. Monitor and if not improving, will call and refer to dermatology. Encounter for long-term (current) use of medications - VITAMIN B12; Future; Expected date: 02/06/2025 Follow Up: Return in about 6 months (around 05/09/2025) for Clinic Visit. | For: Clinic Visit PLAN: Continue present medication(s): Begin medication(s): Azelastine for uncontrolled allergic rhinitis/postnasal drip/eustachian tube dysfunction Change dose of medication(s) to Increase gabapentin to 800 mg TID. Was inadvertently changed to 600mg TID at her last office visit. Sent enough 100 mg pills to take with the 600 mg to get her through this month and then will refill the 800 mg. Increase Ozempic to 2 mg weekly. Study(ies) ordered: Colonoscopy Schedule labs: A1C, BMP, B12 Patient education: Discussed medication changes, ear pain/postnasal drip, colonoscopy Follow up: in 6 month(s). Brody Quiroz MD documented in this encounter Nursing Notes * Ashanti Miller LPN - 11/08/2024 12:56 PM EST Discuss Meclizine: only given enough for 10 days. and Gabapentin (was refilled for 600 MG TID &she was on 800 MG TID) Needs Ozempic increased as well. Currently on 1 MG a week. documented in this encounter Plan of Treatment Upcoming Encounters Date Type Department Care Team (Late st Contact Info) Description 05/30/2025 4:00 PM EDT Office Visit [address] [place] [address] Brody Quiroz MD [address] [place] [address] [place] [id number] Scheduled Orders Name Type Priority Associated Diagnoses Orde r Schedule HEMOGLOBIN A1C Lab Routine Type 2 diabetes mellitus with hemoglobin A1c goal of less than 8.0% (HCC) Expected: 02/06/2025 (Approximate), Expires: 11/08/2025 BASIC METABOLIC PANEL Lab Routine Type 2 diabetes mellitus with hemoglobin A1c goal of less than 8.0% (HCC) Hypertension goal BP (blood pressure) < 140/90 Expected: 02/06/2025 (Approximate), Expires: 11/08/2025 VITAMIN B12 Lab Routine Encounter for long-term (current) use of medications Expected: 02/06/2025 (Approximate), Expires: 11/08/2025 Scheduled Procedures Name Priority Associated Diagnoses Date/Ti me COLONOSCOPY FLEXIBLE PROXIMA L DIAGNOSTIC Recall Special screening for malignant neoplasms, colon Scheduled Referrals Name Type Priority Associated Diagnoses Orde r Schedule COLONOSCOPY, GI REFERRAL OP Referral Within 30 days (routine) Special screening for malignant neoplasms, colon Ordered: 11/08/2024 Health Maintenance Due Date Last Done Comments [...] Monitoring 11/08/2025 11/08/2024 Lipid Panel 09/10/2029 09/10/2024, 03/2024, 05/30/2022, Additional history exists Pneumococcal Vaccine: 65+ Years Completed 10/02/2020, 09/13/2019, 09/28/2013, Additional history [...] as of this encounter Visit Diagnoses Diagnosis Type 2 diabetes mellitus with hemoglobin A1c goal of less than 8.0% (HCC)- Primary Special screening for malignant neoplasms, colon Hypertension goal BP (blood pressure) < 140/90 Unspecified essential hypertension Dyslipidemia, goal LDL below 100 Other and unspecified hyperlipidemia Chronic pain due to trauma Allergic rhinitis, unspecified seasonality, unspecified trigger Non-seasonal allergic rhinitis, unspecified trigger Skin lesion Unspecified disorder of skin and subcutaneous tissue Encounter for long-term (current) use of medications Encounter for long-term (current) use of other medications documented in this encounter Advance Directives * Full Code (Latest Code Status on File) Date Activated Date Inactivated Comments 08/23/2008 8:29 AM 08/27/2008 6:36 PM Care Teams Reinforcing Steel Erector Relationship Specialty Start Date End Date Brody Quiroz MD [address] [place] [address] [place] [id number] PCP - General Family Medicine 09/20/24 documented as of this encounter
--- OUTSIDE RECORDS SUMMARY | 2025-01-03 06:17 | External Medical Summary | Summary of Care ---
Author Name Unknown Organization [facility] Address [address] [facility] [place] [address] Phone [phone] Care Team Providers Care Arboriculture Teacher Name Role Phone Brody Quiroz MD Primary Care Provide r Reason for Referral * Ancillary Services (Within 30 days (routine)) - Authorized Specialty Diagnoses / Procedures Referred By Contlillie t Referred To Contact Gastroenterology Diagnoses Special screening for malignant neoplasms, colon Brody Quiroz MD [address] [place] [address] [place] [address] Phone: tel: fax: Referral ID Status Reason Start Date Expiration Date Visits Requested Visits Authorized [id number] Authorized Ancillary Services Required 4 [phone] Question Answer Referral Priority Within 30 days (routine) Where should this appointment be scheduled? [facility] Comments ALERT: Do not order for pediatric patients (18 years or younger). Cancel off screen and order PEDS GASTROENTEROLOGY CONSULT (Type: 1 visit only-Evaluate and Treat) The following Pt. Instructions are available: - Gastro Colonoscopy Prep Instructions [[id number]] - Gastro Colonoscopy Prep Instructions (Kinyarwanda Version) [[id number]] Go to the Pt. Instructions section within [...] 1:00 PM EST Office Visit Family Medicine [address] [place] [address] Brody Quiroz MD [address] [place] [address] [place] [id number] Type 2 diabetes mellitus with hemoglobin A1c goal of less than 8.0% ([facility])*; Special screening for malignant neoplasms, colon; Hypertension [...] as of this encounter (statuses as of 11/10/2024) Medications CYMBALTA 60 MG PO CPEPIndications:C hronic [...] Take by mouth. Ac tive nystatin (NYAMYC) 211063 UNIT/GM powderIndications :Intertrigo Apply topically to affected [...] suspected opioid overdose. Seek immediate medical attention. [email or web address]? [email or web address] Active Azithromycin 250 MG Oral Tablet (Zithromax [...] hemoglobin A1c goal of less than 8.0% ([facility]) Inject 2 mg under the skin once [...] as of this encounter (statuses as of 11/10/2024) Active Problems Problem Noted Date Diagnosed Date [...] as of this encounter (statuses as of 11/10/2024) Resolved Problems Problem Noted Date Diagnosed Date [...] as of this encounter (statuses as of 11/10/2024) Immunizations Name Administration Dates Next Due COVID-19 [...] provider Abdominal pain Vomiting Date Last Reviewed: 09/27/201519991964-2400 [employer]. [address] [place] [address]. All rights reserved. This information is not intended as a substitute for professional medical care. Always follow your healthcare professional's instructions. documented in this encounter Progress Notes * Brody Quiroz MD - 11/08/2024 1:10 PM EST Subjective: Klarissa Haider is a 69 year old female. Chief Complaint Patient presents with Re-Check HPI: Brief Clinical History Ms. Hadier is a 69 year old female last seen in Family Medicine [facility] on 09/10/2024 by Gabriella Pichardo She has a h/o the following chronic conditions indicated on the problem list: Chronic Conditions TERMINATED MEDICATION USAGE AGREEMENT Type 2 diabetes mellitus with hemoglobin A1c goal of less than 8.0% ([facility]) Was doing better on gabapentin 800 mg [...] Is scheduled for right knee replacement at [facility] by Dr. Demarco on 11/19/24. Has been [...] (CALCULATED)-OUTSIDE LAB LDL (DIRECT MEASURE)-OUTSIDE LAB HEMOGLOBIN, [id number] LAB 5.4 4.5 - 5.6 % PHOSPHORUS-OUTSIDE [...] Oral Capsule Take by mouth. nystatin (NYAMYC) 177123 UNIT/GM powder Apply topically to affected area [...] suspected opioid overdose. Seek immediate medical attention. [email or web address] Azithromycin 250 MG Oral Tablet (Zithromax Z-Dante) [...] Ankle deformity left Anxiety Dr. Ji in [place] Chronic kidney disease (CKD), stage III (moderate) [...] performed by SWAPNIL PAULINO at [facility] [place] 2006 normal per patient--Rm Gastro EGD, [...] ABD HYSTERECTOMY W/WO REMOVAL OF TUBE(S) 1982 HEAD AND NECK 05/30/2022 Several subcentimeter bilateral [...] hemoglobin A1c goal of less than 8.0% ([facility]) (Primary)--controlled with Ozempic. Has also lost about [...] up: in 6 month(s). Brody Quiroz MD ADDENDUM: Patient with findings of interstitial lung disease on pre-op chest x- ray. On review of prior imaging, had similar findings on chest CT in 2019. Has not been having recent breathing issues. OK to proceed with knee replacement as planned. documented in this encounter Nursing Notes * [...] 05/30/2025 4:00 PM EDT Office Visit Family Medicine [address] [place] [phone] Brody Quiroz MD [address] [place] [address] [place] [id number] Scheduled Orders Name Type Priority Associated Diagnoses [...] 8:29 AM 08/27/2008 6:36 PM Care Teams Arboriculture Teacher Relationship Specialty Start Date End Date Brody Quiroz MD [address] [place] [address] [place] [id number] PCP - General Family Medicine 09/20/24 documented as of this encounter
--- OUTSIDE RECORDS SUMMARY | 2025-01-03 06:17 | External Medical Summary | Summary of Care ---
Author Name Unknown Organization [facility] Address [address] [facility] [place] [address] Phone [phone] Care Team Providers Care Live In Caregiver Name Role Phone Brody Quiroz MD Primary Care Provide r Encounter Details Date Type Department Care Team (Late st Contact Info) Description 11/02/2024 Result Scan Unspecified Department <No scans attached> Allergies Active Allergy Reactions Criticality Noted Date Comments Ampicillin Nausea/vomiting High 09/27/2008 Fentanyl Other (Please comment) High 03/24/2013 Cardiac arrest Other - Environmental Edema face/lips/tongue High Bee stings documented as of this encounter (statuses as of 11/04/2024) Medications CYMBALTA 60 MG PO CPEPIndications:Ch ronic pain due to trauma 2 tabs daily in the morning 60 5 08/27/20 08 Active FISH OIL 1000 MG PO CAPS Take 1 Capsule by mouth in the morning. Active MULTI-VITAMIN PO TABS daily Active VITAMIN D 1000 UNITS PO TABS Take 1 Tablet by mouth every afternoon. Active SEROQUEL 400 MG PO TABS Take 0.5 Tablets by mouth at bedtime. Active ASPIRIN 81 MG PO TABS one tablet daily Act jd Docosanol (ABREVA) 10 % CREAIndications:Re current cold sores Apply topically to affected area 5 times a day. to lesions on face or lips until healed. 2 g 5 12/04/19 16 Active loperamide (IMODIUM) 2 MG CapsuleIndications :IBS (irritable bowel syndrome) 2 pills at onset for diarrhea and one pills after each loose stool as needed for diarrhea 60 Cap 2 07/28/20 18 Active Apoaequorin 10 MG Oral Capsule Take by mouth. Ac tive nystatin (NYAMYC) 635098 UNIT/GM powderIndications: Intertrigo Apply topically to affected area 2 times a day. Apply to affected area 30 g 1 05/22/20 20 Active AUG BETAMETHASONE DIPROPIONATE (DIPROLENE AF) 0.05 % cream Apply topically to affected area 2 times a day. Apply to affected area 50 g 1 07/24/20 20 Active Albuterol Sulfate HFA 108 (90 Base) MCG/ACT Inhalation Aerosol SolutionIndication s:Wheezing Use two puffs four times a day as needed for wheezing or shortness of breath 54 g 1 03/06/20 21 Active EPINEPHrine 0.3 MG/0.3ML Injection Solution Auto-injector (Autoinjector) For a severe reaction: Inject in outer thigh following instructions on package and go to the Emergency room. 2 Each 5 03/22/20 21 Active Clobetasol Propionate 0.05 % External Cream (Temovate) Apply topically to affected area 2 times a day . 30 g 1 02/29/20 22 Active cloNIDine HCl 0.1 MG Oral Tablet (Catapres)Indicati ons:Hypertension goal BP (blood pressure) < 140/90 Take 1 Tablet (100 mcg) by mouth at bedtime. 30 Tablet 5 10/29/20 22 Active Diclofenac Sodium 1 % External Gel (Voltaren)Indicati ons:Primary osteoarthritis of both knees Apply 4 g topically to affected area 4 times a day as needed (knee and hip pain). 150 g 3 10/29/20 22 Active Fluocinolone Acetonide 0.01 % External Solution Apply topically to affected area 2 times a day. Apply to scalp 60 mL 3 12/26/19 23 Active Nitroglycerin 0.4 MG Sublingual Tablet Sublingual (Nitrostat)Indicat ions:Chest pain PLACE 1 tablet under the tongue every 5 minutes as needed with chest pain up to 3 doses in 15 minutes 25 Tablet 5 02/19/20 23 Active Fluticasone Propionate 50 MCG/ACT Nasal Suspension (Flonase)Indicatio ns:Allergic rhinitis, unspecified seasonality, unspecified trigger Administer 2 Sprays into each nostril in the morning. 16 g 5 11/28/19 24 Active predniSONE 20 MG Oral Tablet (Deltasone)Indicat ions:Complicated bronchitis 1 tab 3 times a day for 3 days, then 1 tab 2 times a day for 3 days, then 1 tab daily for 3 days 18 Tablet 11/28/19 24 Active metFORMIN HCl 500 MG Oral Tablet (Glucophage) Take 1 Tablet by mouth 2 times a day with morning and evening meals. 180 Tablet 3 12/03/19 24 Active Atorvastatin Calcium 40 MG Oral Tablet (Lipitor) Take 1 Tablet by mouth every night at bedtime. 90 Tablet 3 12/03/19 24 Active Lancets Test once a day E11.9 100 Each 11 12/10/19 24 Active Accu-Chek Guide In Vitro Strip (Glucose Blood)Indications: Type 2 diabetes mellitus with hemoglobin A1c goal of less than 8.0% (HCC) Test blood sugar once daily. E11.9 100 Strip 3 01/21/20 24 Active Accu-Chek Guide w/Device KitIndications:Typ e 2 diabetes mellitus with hemoglobin A1c goal of less than 8.0% (HCC) Use as directed. Test blood sugar once daily E11.9 1 Kit 01/21/20 24 Active Accu-Chek Multiclix LancetsIndications :Type 2 diabetes mellitus with hemoglobin A1c goal of less than 8.0% (HCC) Test once daily. E11.9 100 Each 3 01/21/20 24 Active Accu-Chek Natalie Plus w/Device Kit Test once daily. E11.9 1 Kit 01/22/20 24 Active Accu-Chek Natalie Plus In Vitro Strip (Glucose Blood) Test once daily E11.9 100 Strip 3 01/22/20 24 Active Accu-Chek Guide In Vitro Strip (Glucose Blood) Test blood sugar once daily. E11.9 100 Strip 3 01/22/20 24 Active Omeprazole 40 MG Oral Capsule Delayed Release (PriLOSEC)Indicati ons:Gastroesophage al reflux disease without esophagitis TAKE ONE CAPSULE BY MOUTH TWICE DAILY 180 Capsule 3 03/05/20 24 Active Furosemide 40 MG Oral Tablet (Lasix)Indications :Bilateral lower extremity edema TAKE ONE TABLET BY MOUTH DAILY NEEDED FOR SWELLING 90 Tablet 2 04/28/20 24 Active Fenofibrate 145 MG Oral Tablet (Tricor)Indication s:Dyslipidemia, goal LDL below 100 TAKE ONE TABLET BY MOUTH EVERY DAY 90 Tablet 1 06/07/20 24 Active Potassium Chloride Karla ER 20 MEQ Oral Tablet Extended Release Take 1 Tablet by mouth in the morning. 90 Tablet 1 09/03/20 24 Active Lovastatin 10 MG Oral Tablet Take 1 Tablet by mouth every evening. Active oxyCODONE HCl 10 MG Oral Tablet (Roxicodone) Take 1 Tablet by mouth 4 times a day as needed (pain). 08/14/20 24 Active Prevagen 10 MG Oral Capsule (Apoaequorin) Take by mouth. A ctive QUEtiapine Fumarate 200 MG Oral Tablet (SEROquel) Take 1 Tablet by mouth at bedtime. Active Naloxone HCl 4 MG/0.1ML Nasal Liquid (Narcan) Administer 0.1 mL into nostril as needed. Administer 1 spray into 1 nostril for suspected opioid overdose. Seek immediate medical attention. [email or web address] Active Azithromycin 250 MG Oral Tablet (Zithromax Z-Dante)Indications: Acute recurrent sinusitis, unspecified location Take two tablets by mouth on first day, then 1 tablet daily until gone 6 Tablet 09/10/20 24 Active Ozempic (1 MG/DOSE) 4 MG/3ML Subcutaneous Solution Pen-injector (Semaglutide (1 MG/DOSE))Indicatio ns:Type 2 diabetes mellitus with hemoglobin A1c goal of less than 8.0% (HCC) Inject 1 mg under the skin once a week. 9 mL 1 10/30/20 24 Active NIFEdipine ER Osmotic Release 30 MG Oral Tablet Extended Release 24 Hour (Procardia XL)Indications:Hyp ertension goal BP (blood pressure) < 140/90 Take 1 Tablet by mouth in the morning 90 Tablet 1 11/01/20 24 Active Gabapentin 600 MG Oral Tablet (Neurontin)Indicat ions:Chronic pain due to trauma Take 1 Tablet by mouth in the morning and 1 Tablet at noon and 1 Tablet before bedtime. 90 Tablet 5 11/02/20 24 Active Meclizine HCl 12.5 MG Oral Tablet (Antivert)Indicati ons:Chronic pain due to trauma,Dizziness Take 1 Tablet by mouth 3 times a day as needed for Dizziness. 90 Tablet 5 11/02/20 24 Active documented as of this encounter (statuses as of 11/04/2024) Active Problems Problem Noted Date Diagnosed Date Type 2 diabetes mellitus wit h hemoglobin [...] as of this encounter (statuses as of 11/04/2024) Resolved Problems Problem Noted Date Diagnosed Date [...] as of this encounter (statuses as of 11/04/2024) Immunizations Name Administration Dates Next Due COVID-19 [...] Date Recorded PHQ Adult Total Score 0 03/12/2021 Hunger Vital Sign Answer Date Recorded Worried [...] on file documented as of this encounter Plan of Treatment Upcoming Encounters Date Type Department Care Team (Late st Contact Info) Description 11/08/2024 1:00 PM EST Office Visit Family Medicine [address] [place] [phone] Brody Quiroz MD [address] [place] [address] [place] [phone] Scheduled Procedures Name Priority Associated Diagnoses Date/Ti me COLONOSCOPY FLEXIBLE PROXIMA L DIAGNOSTIC Recall Special screening for malignant neoplasms, colon Health Maintenance Due Date Last Done Comments Diabetic Foot Exam 1972 Colonoscopy 1999 Sigmoidoscopy 1999 Zoster Vaccines (1 of 2) 2004 DXA Scan 04/04/2018 04/04/2011 Fecal Occult Blood Test 01/15/2019 01/15/2018, 10/15 Adult Wellness Visit 2020 Depression Monitoring 03/12/2022 03/12/2021 Mammogram 03/12/2022 03/12/2021, 03/0 11/2017, 02/27/2015, Additional history exists Cologuard 05/11/2022 05/11/2019 Colorectal Cancer Screening 05/11/2022 DTap/Tdap Vaccines (2 - Td or Tdap) 07/14/2023 07/14/2013 COVID-19 Vaccine ( season) 2024 08/09/2024, 10/03/2023, 09/02/2022, Additional history exists Diabetic Eye Exam 02/25/2025 02/26/2024 HbA1c 03/11/2025 11/02/2024, 08/24, 11/28/2023, Additional history exists Albumin/Creatinine Ratio 09/10/202509/10/ 024, 11/28/2023, 03/05/2021, Additional history exists GFR 09/10/2025 11/02/2024, 08/24, 11/28/2023, Additional history exists Lipid Panel 09/10/2029 09/10/2024, 03/2024, 05/30/2022, Additional [...] Not on filedocumented as of this encounter Procedures Procedure Name Priority Date/Time Associated Diagnosis Comments EKG SCANNED RESULT 11/02/2024 documented in this encounter Results * EKG SCANNED RESULT (11/02/2024) 11/02/2024 us No Physician Data Unknown EKG Final Result documented in this encounter Advance Directives * Full Code (Latest Code Status on File) Date Activated Date Inactivated Comments 08/23/2008 8:29 AM 08/27/2008 6:36 PM Care Teams Live In Caregiver Relationship Specialty Start Date End Date Brody Quiroz MD [address] [place] [address] [place] [phone] PCP - General Family Medicine 09/20/24 documented as of this encounter
--- OUTSIDE RECORDS SUMMARY | 2025-01-03 06:17 | External Medical Summary | Summary of Care ---
Author Name Unknown Organization [facility] Address [address] [facility] [place] [address] Phone [phone] Care Team Providers Care Phys Therapist Name Role Phone Brody Quiroz MD Primary Care Provide r Reason for Visit * Reason Onset Date Comments Appointment 11/08/2024 Colonoscopy Encounter Details Date Type Department Care Team (Late st Contact Info) Description 11/08/2024 Telephone Family [address] [phone] Brody Quiroz MD [address] [place] [address] [place] [address] Appointment (Colonoscopy ) Allergies Active Allergy Reactions Criticality Noted Date Comments Ampicillin Nausea/vomiting High 09/27/2008 Fentanyl Other (Please comment) High 03/24/2013 Cardiac arrest Other - Environmental Edema face/lips/tongue High Bee stings documented as of this encounter (statuses as of 11/11/2024) Medications CYMBALTA 60 MG PO CPEPIndications:C hronic [...] Take by mouth. Ac tive nystatin (NYAMYC) 226652 UNIT/GM powderIndications :Intertrigo Apply topically to affected [...] suspected opioid overdose. Seek immediate medical attention. [email or web address]? [email or web address] Active Azithromycin 250 MG Oral Tablet (Zithromax [...] mg three times a day. 180 Capsule 12/16/2 024 Active Ozempic (2 MG/DOSE) 8 MG/3ML [...] the morning. 16 g 5 024 Active Lovastatin 10 MG Oral Tablet Take 1 Tablet by mouth every evening. 2023 Discontinued documented as of this encounter (statuses as of 11/11/2024) Active Problems Problem Noted Date Diagnosed Date [...] as of this encounter (statuses as of 11/11/2024) Resolved Problems Problem Noted Date Diagnosed Date [...] as of this encounter (statuses as of 11/11/2024) Immunizations Name Administration Dates Next Due COVID-19 [...] encounter Miscellaneous Notes * Telephone Encounter - Corazon Del Toro OSA - 11/11/2024 10:48 AM EST Pt wants end of summer 2024 HEBERT Malik 11/11/2024 10:48 AM * Telephone Encounter - Ella Gonzalez OSA - 11/08/2024 1:44 PM EST Klarissa akhtar scheduled for colonoscopy for: Special screening for malignant neoplasms, colon [Z12.11] documented in this encounter Plan of Treatment Upcoming Encounters Date Type Department Care Team (Late st Contact Info) Description 05/30/2025 4:00 PM EDT Office Visit Family Medicine [address] [place] [phone] Brody Quiroz MD [address] [place] [address] [place] [address] Scheduled Procedures Name Priority Associated Diagnoses Date/Ti [...] Not on filedocumented as of this encounter Advance Directives * Full Code (Latest Code Status on File) Date Activated Date Inactivated Comments 08/23/2008 8:29 AM 08/27/2008 6:36 PM Care Teams Phys Therapist Relationship Specialty Start Date End Date Brody Quiroz MD [address] [place] [address] [place] [phone] PCP - General Family Medicine 09/20/24 documented as of this encounter
--- OUTSIDE RECORDS SUMMARY | 2025-01-03 06:17 | External Medical Summary | Summary of Care ---
Author Name Unknown Organization [facility] Address [address] [facility] [place] [address] Phone [phone] Care Team Providers Care Resident Assistant Cna Name Role Phone Brody Quiroz MD Primary Care Provide r Reason for Visit * Reason Onset Date Comments Test Results 09/17/2024 Encounter Details Date Type Department Care Team (Late st Contact Info) Description 09/17/[address] [place] [address] Gabriella Pichardo PA-C [address] [place] [address] [place] [id number] Test Results Allergies Active Allergy Reactions Criticality Noted Date Comments Ampicillin Nausea/vomiting High 09/27/2008 Fentanyl Other (Please comment) High 03/24/2013 Cardiac arrest Other - Environmental Edema face/lips/tongue High Bee stings documented as of this encounter (statuses as of 12/17/2024) Medications CYMBALTA 60 MG PO CPEPIndications:C hronic [...] Take by mouth. Ac tive nystatin (NYAMYC) 021297 UNIT/GM powderIndications :Intertrigo Apply topically to affected [...] suspected opioid overdose. Seek immediate medical attention. https://www.[email or web address]? [email or web address] Active Azithromycin 250 MG Oral Tablet (Zithromax Z-Dante)Indications :Acute recurrent sinusitis, unspecified location Take two tablets by mouth on first day, then 1 tablet daily until gone 6 Tablet Active Fluticasone Propionate 50 MCG/ACT Nasal Suspension (Flonase)Indicati ons:Allergic rhinitis, unspecified seasonality, unspecified trigger Administer 2 Sprays into each nostril in the morning. 16 g 5 024 2023 Discontinued(R efill) metFORMIN HCl 500 MG Oral Tablet (Glucophage) Take 1 Tablet by mouth 2 times a day with morning and evening meals. 180 Tablet 3 024 2024 Discontinued Atorvastatin Calcium 40 MG Oral Tablet (Lipitor) Take 1 Tablet by mouth every night at bedtime. 90 Tablet 3 024 2024 Discontinued Ozempic (0.25 or 0.5 MG/DOSE) 2 MG/3ML Solution Pen-injector (Semaglutide(0.25 or 0.5MG/DOS)) Inject 0.5 mg under the skin once a week. 3 mL 024 2023 Discontinued(M edication List Clean Up) NIFEdipine ER Osmotic Release 30 MG Oral Tablet Extended Release 24 Hour (Procardia XL) Take 1 Tablet by mouth in the morning 90 Tablet 1 024 2023 Discontinued Ozempic (1 MG/DOSE) 4 MG/3ML Subcutaneous Solution Pen-injector (Semaglutide (1 MG/DOSE))Indicati ons:Type 2 diabetes mellitus with hemoglobin A1c goal of less than 8.0% (HCC) Inject 1 mg under the skin once a week. 3 mL 2 024 2023 Discontinued Meclizine HCl 12.5 MG Oral Tablet (Antivert) Take 1 Tablet by mouth 3 times a day as needed for Dizziness. 90 Tablet 2023 Discontinued(R efill) Gabapentin 600 MG Oral Tablet (Neurontin) Take 1 Tablet by mouth in the morning and 1 Tablet at noon and 1 Tablet before bedtime. 2023 Discontinued(R efill) Lovastatin 10 MG Oral Tablet Take 1 Tablet by mouth every evening. 2023 Discontinued NIFEdipine ER Osmotic Release 30 MG Oral Tablet Extended Release 24 Hour (Procardia XL) Take 1 Tablet by mouth in the morning. 2023 Discontinued(M edication List Clean Up) Sulfamethoxazole- Trimethoprim 800-160 MG Oral Tablet (Bactrim DS)Indications:Ac marques maxillary sinusitis, recurrence not specified Take 1 Tablet by mouth in the morning and 1 Tablet before bedtime. Do all this for 10 days. Until gone.. 20 Tablet 2023 documented as of this encounter (statuses as of 12/17/2024) Active Problems Problem Noted Date Diagnosed Date [...] as of this encounter (statuses as of 12/17/2024) Resolved Problems Problem Noted Date Diagnosed Date [...] as of this encounter (statuses as of 12/17/2024) Immunizations Name Administration Dates Next Due COVID-19 mRNA, LNP-s, No Pre serve, 2-Dose Series (Moderna) 03/19/2021,02/19/2021 COVID-19, MRNA-LNP, PF, 30 M CG/0.3 mL, 12 YRS AND ABOVE, IM [facility] 10/03/2023 COVID-19, mRNA, LNP-s, PF, B ooster, [...] encounter Miscellaneous Notes * Telephone Encounter - Ashanti Miller LPN - 09/21/2024 10:21 AM EDT Made pt aware and they expressed understanding. * Telephone Encounter - Gabriella Pichardo PA-C - 09/21/2024 9:22 AM EDT Bactrim sent to pharmacy. * Telephone Encounter - Lilia Slaughter RN - 09/20/2024 3:34 PM EDT Letter was sent to pt regarding lab tests. Gabriella, please advise, pt is not any better after taking Z dante * Telephone Encounter - Twany Floyd OSA - 09/17/2024 11:01 AM EDT Pt told to call back if they have not received their results of last weeks testing. Please contact pt at [phone]. Dr Pichardo told pt to call back if they did not feel better after taking the azithromycin. Pt states they are too weak to come in for an appointment and would like dr to contact her. documented in this encounter Plan of Treatment Upcoming Encounters Date Type Department Care Team (Late st Contact Info) Description 05/30/2025 4:00 PM EDT Office Visit Family Medicine [address] [place] [phone] Brody Quiroz MD [address] [place] [address] [place] [phone] Scheduled Procedures Name Priority Associated Diagnoses Date/Ti [...] 08/24, 11/28/2023, Additional history exists Albumin/Creatinine Ratio 09/10/20252 024, 11/28/2023, 03/05/2021, Additional history exists GFR [...] as of this encounter Visit Diagnoses Diagnosis Acute maxillary sinusitis, recurrence not specified- Primary documented in this encounter Advance Directives * Full Code (Latest Code Status on File) Date Activated Date Inactivated Comments 08/23/2008 8:29 AM 08/27/2008 6:36 PM Care Teams Resident Assistant Cna Relationship Specialty Start Date End Date Brody Quiroz MD [address] [place] [address] [place] [phone] PCP - General Family Medicine 09/20/24 documented as of this encounter
--- OUTSIDE RECORDS SUMMARY | 2025-01-03 06:17 | External Medical Summary | Summary of Care ---
Author Name Unknown Organization [facility] Address [address] [facility] [place] [address] Phone [phone] Care Team Providers Care Upset Welding Machine Operator Name Role Phone Brody Quiroz MD Primary Care Provide r Reason for Visit * Reason Comments eRx-Medication Refill Encounter Details Date Type Department Care Team (Late st Contact Info) Description 12/06/2024 Refill Family Medicine [address] [phone] Brody Quiroz MD [address] [place] [address] [place] [address] Chronic pain due to trauma Allergies Active Allergy Reactions Criticality Noted Date Comments Ampicillin Nausea/vomiting High 09/27/2008 Fentanyl Other (Please comment) High 03/24/2013 Cardiac arrest Other - Environmental Edema face/lips/tongue High Bee stings documented as of this encounter (statuses as of 12/06/2024) Medications CYMBALTA 60 MG PO CPEPIndications:Ch ronic [...] Take by mouth. Ac tive nystatin (NYAMYC) 693098 UNIT/GM powderIndications: Intertrigo Apply topically to affected [...] minutes 25 Tablet 5 02/19/20 23 Active predniSONE 20 MG Oral Tablet (Deltasone)Indicat [...] morning. 90 Tablet 1 09/03/20 24 Active oxyCODONE HCl 10 MG Oral Tablet [...] suspected opioid overdose. Seek immediate medical attention. https://www.[email or web address]/watch?v= [email or web address] Active Azithromycin 250 MG Oral Tablet (Zithromax Z-Dante)Indications: Acute recurrent sinusitis, unspecified location Take two tablets by mouth on first day, then 1 tablet daily until gone 6 Tablet 09/10/20 24 Active NIFEdipine ER Osmotic Release 30 MG Oral Tablet Extended Release 24 Hour (Procardia XL)Indications:Hyp ertension goal BP (blood pressure) < 140/90 Take 1 Tablet by mouth in the morning 90 Tablet 1 11/01/20 24 Active Meclizine HCl 12.5 MG Oral Tablet (Antivert)Indicati ons:Chronic pain due to trauma,Dizziness Take 1 Tablet by mouth 3 times a day as needed for Dizziness. 90 Tablet 5 11/02/20 24 Active Ozempic (2 MG/DOSE) 8 MG/3ML Subcutaneous Solution Pen-injector (Semaglutide (2 MG/DOSE))Indicatio ns:Type 2 diabetes mellitus with hemoglobin A1c goal of less than 8.0% ([facility]) Inject 2 mg under the skin once a week. 3 mL 5 11/08/20 24 Active Azelastine HCl 137 MCG/SPRAY Nasal SolutionIndication s:Non-seasonal allergic rhinitis, unspecified trigger Administer 2 Sprays into each nostril in the morning and 2 Sprays before bedtime. 30 mL 5 11/08/20 24 Active Fluticasone Propionate 50 MCG/ACT Nasal Suspension (Flonase)Indicatio ns:Allergic rhinitis, unspecified seasonality, unspecified trigger Administer 2 Sprays into each nostril in the morning. 16 g 5 11/08/20 24 Active Gabapentin 800 MG Oral Tablet (Neurontin)Indicat ions:Chronic pain due to trauma Take 1 Tablet by mouth in the morning and 1 Tablet at noon and 1 Tablet before bedtime. 270 Tablet 1 11/30/19 25 Active documented as of this encounter (statuses as of 12/06/2024) Active Problems Problem Noted Date Diagnosed Date [...] as of this encounter (statuses as of 12/06/2024) Resolved Problems Problem Noted Date Diagnosed Date [...] as of this encounter (statuses as of 12/06/2024) Immunizations Name Administration Dates Next Due COVID-19 [...] encounter Miscellaneous Notes * Telephone Encounter - Melissa Morales RP - 12/06/2024 8:57 PM EST Refused Prescriptions: Disp Refills Gabapentin 100 MG Oral Capsule (Neurontin) 180 Ca*0 Sig: Take 2Capsules by mouth in the morning and 2 Capsules at noon and 2 Capsules before bedtime. Take with 600 mg tablet to equal 800 mg three times a day.Refused By: MELISSA MORALES for Refusal: Duplicate Request documented in this encounter Plan of Treatment Upcoming Encounters Date Type Department Care Team (Late st Contact Info) Description 05/30/2025 4:00 PM EDT Office Visit Family Medicine [address] [place] [phone] Brody Quiroz MD [address] [place] [address] [place] [address] Scheduled Procedures Name Priority [...] as of this encounter Visit Diagnoses Diagnosis Chronic pain due to trauma documented in this encounter Advance Directives * Full Code (Latest Code Status on File) Date Activated Date Inactivated Comments 08/23/2008 8:29 AM 08/27/2008 6:36 PM Care Teams Upset Welding Machine Operator Relationship Specialty Start Date End Date Brody Quiroz MD [address] [place] [address] [place] [id number] PCP - General Family Medicine 09/20/24 documented as of this encounter
--- OUTSIDE RECORDS SUMMARY | 2025-01-03 06:17 | External Medical Summary | Summary of Care ---
Author Name Unknown Organization [facility] Address [address] [facility] [place] [address] Phone [phone] Care Team Providers Care Plumber Apprentice Name Role Phone Brody Quiroz MD Primary Care Provide r Reason for Visit * Reason Onset Date Comments Appointment 11/08/2024 Colonoscopy Encounter Details Date Type Department Care Team (Late st Contact Info) Description 11/08/2024 Telephone Family [address] [phone] Brody Quiroz MD [address] [place] [address] [place] [address] Appointment (Colonoscopy ) Allergies Active Allergy Reactions Criticality Noted Date Comments Ampicillin Nausea/vomiting High 09/27/2008 Fentanyl Other (Please comment) High 03/24/2013 Cardiac arrest Other - Environmental Edema face/lips/tongue High Bee stings documented as of this encounter (statuses as of 11/08/2024) Medications CYMBALTA 60 MG PO CPEPIndications:Ch ronic [...] Take by mouth. Ac tive nystatin (NYAMYC) 344103 UNIT/GM powderIndications: Intertrigo Apply topically to affected [...] suspected opioid overdose. Seek immediate medical attention. https://www.[email or web address]/watch?v= [email or web address] Active Azithromycin 250 MG Oral Tablet (Zithromax [...] Dizziness. 90 Tablet 5 11/02/20 24 Active Gabapentin 800 MG Oral Tablet (Neurontin)Indicat ions:Chronic pain due to trauma Take 1 Tablet by mouth in the morning and 1 Tablet at noon and 1 Tablet before bedtime. 11/08/20 24 Active Gabapentin 100 MG Oral Capsule (Neurontin)Indicat ions:Chronic pain due to trauma Take 2 Capsules by mouth in the morning and 2 Capsules at noon and 2 Capsules before bedtime. Take 2 capsules 3 times a day with 600 mg tablet to equal 800 mg three times a day. 180 Capsule 11/08/20 24 Active Ozempic (2 MG/DOSE) 8 MG/3ML Subcutaneous Solution Pen-injector (Semaglutide (2 MG/DOSE))Indicatio ns:Type 2 diabetes mellitus with hemoglobin A1c goal of less than 8.0% ([facility]) Inject 2 mg under the skin once [...] morning. 16 g 5 11/08/20 24 Active documented as of this encounter [...] encounter Miscellaneous Notes * Telephone Encounter - Ella Gonzalez OSA - 11/08/2024 1:44 PM EST Klarissa akhtar scheduled for colonoscopy for: Special screening for malignant neoplasms, colon [Z12.11] documented in this encounter Plan of Treatment Upcoming Encounters Date Type Department Care Team (Late st Contact Info) Description 05/30/2025 4:00 PM EDT Office Visit Family Medicine [address] [place] [phone] Brody Quiroz MD [address] [place] [address] [place] [phone] Scheduled Procedures Name Priority Associated Diagnoses Date/Ti [...] 8:29 AM 08/27/2008 6:36 PM Care Teams Plumber Apprentice Relationship Specialty Start Date End Date Brody Quiroz MD [address] [place] [address] [place] [phone] PCP - General Family Medicine 09/20/24 documented as of this encounter
--- OUTSIDE RECORDS SUMMARY | 2025-01-03 06:17 | External Medical Summary | Summary of Care ---
Author Name Unknown Organization [facility] Address [address] [facility] [place] [address] Phone [phone] Care Team Providers Care Campaign Specialist Name Role Phone Brody Quiroz MD Primary Care Provide r Reason for Visit * Reason Onset Date Comments Advice 11/10/2024 Encounter Details Date Type Department Care Team (Late st Contact Info) Description 11/10/[address] [phone] Brody Quiroz MD [address] [place] [address] [place] [address] Advice Allergies Active Allergy Reactions Criticality Noted Date Comments Ampicillin Nausea/vomiting High 09/27/2008 Fentanyl Other (Please comment) High 03/24/2013 Cardiac arrest Other - Environmental Edema face/lips/tongue High Bee stings documented as of this encounter (statuses as of 11/10/2024) Medications CYMBALTA 60 MG PO CPEPIndications:Ch ronic [...] Take by mouth. Ac tive nystatin (NYAMYC) 292927 UNIT/GM powderIndications: Intertrigo Apply topically to affected [...] suspected opioid overdose. Seek immediate medical attention. [email or web address]?v= [email or web address] Active Azithromycin 250 MG Oral Tablet (Zithromax [...] hemoglobin A1c goal of less than 8.0% ([facility]) Inject 2 mg under the skin [...] encounter Miscellaneous Notes * Telephone Encounter - Amber Heart CMA - 11/10/2024 11:30 AM EST Faxed to number below * Telephone Encounter - Brody Quiroz MD - 11/10/2024 11:24 AM EST Please see office note 11/08/24. I already addended it. * Telephone Encounter - Amber Heart CMA - 11/10/2024 11:13 AM EST Called and spoke with [facility] anesthesiology and advised of message below. They are still asking you put something in your last office from 11/08/24 about the chronic interstitial lung disease being stable and okay for surgery. * Telephone Encounter - Brody Quiroz MD - 11/10/2024 9:56 AM EST This finding is not new. Seen on chest CT in 2019 as well. Her breathing has been stable without recent issues. I think she is OK for the surgery. * Telephone Encounter - Aida Goldman LPN - 11/10/2024 8:40 AM EST Marilyn calling from [facility] anesthesiology dept. 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 They have access to [email or web address] so MD Garrett can reply via call, fax or reply to this msg and they will be sue to see it. They need to know if PCP is agreeable to still continue with surgery due to Chest xray impression above. [facility] Anesthesiology Dept- 11/08/2024 -in office- Brody Quiroz MD- can you addend OV note? Please advice. documented in this encounter Plan of Treatment Upcoming Encounters Date Type Department Care Team (Late st Contact Info) Description 05/30/2025 4:00 PM EDT Office Visit Family Medicine [address] [place] [phone] Brody Quiroz MD [address] [place] [address] [place] [phone] Scheduled Procedures Name Priority Associated Diagnoses Date/Ti [...] 8:29 AM 08/27/2008 6:36 PM Care Teams Campaign Specialist Relationship Specialty Start Date End Date Brody Quiroz MD [address] [place] [address] [place] [phone] PCP - General Family Medicine 09/20/24 documented as of this encounter
--- OUTSIDE RECORDS SUMMARY | 2025-01-03 06:17 | External Medical Summary | Summary of Care ---
Author Name Unknown Organization [facility] Address [address] [facility] [place] [address] Phone [phone] Care Team Providers Care Odd Job Laborer Name Role Phone Yahir Quiroz MD Primary Care Provide r Reason for Referral * Medication Prior Authorization - Authorized Specialty Diagnoses / Procedures Referred By Contac t Referred To Contact Diagnoses Hypertension goal BP (blood pressure) < 140/90 Yahir Quiroz MD [address] [place] [address] [place] [address] Phone: tel: fax: Referral ID Status Reason Start Date Expiration Date V isits Requested Visits Authorized [id number] Authorized 11/02/2024 11/02/2024 999 999 Reason for Visit * Reason Comments eRx-Medication Refill Encounter Details Date Type Department Care Team (Late st Contact Info) Description 10/29/2024 Refill Family Medicine [facility] [place] [phone] Yahir Quiroz MD [address] [place] [address] [place] [id number] Hypertension goal BP (blood pressure) < 140/90*; Chronic pain due to trauma; Type 2 diabetes mellitus with hemoglobin A1c goal of less than 8.0% ([facility]); Dizziness Allergies Active Allergy Reactions Criticality Noted Date Comments Ampicillin Nausea/vomiting High 09/27/2008 Fentanyl Other (Please comment) High 03/24/2013 Cardiac arrest Other - Environmental Edema face/lips/tongue High Bee stings documented as of this encounter (statuses as of 11/13/2024) Medications CYMBALTA 60 MG PO CPEPIndications:C hronic [...] Take by mouth. Ac tive nystatin (NYAMYC) 371877 UNIT/GM powderIndications :Intertrigo Apply topically to affected [...] Test once daily. E11.9 100 Each 3 01/21/ 024 Active Accu-Chek Natalie Plus w/Device Kit [...] suspected opioid overdose. Seek immediate medical attention. https://www.you tube.com/watch? [email or web address] Active Azithromycin 250 MG Oral Tablet (Zithromax [...] for Dizziness. 90 Tablet 5 024 Active Fluticasone Propionate 50 MCG/ACT Nasal Suspension (Flonase)Indicati ons:Allergic rhinitis, unspecified seasonality, unspecified trigger Administer 2 Sprays into each nostril in the morning. 16 g 5 024 2023 Discontinued(R efill) Ozempic (0.25 or 0.5 MG/DOSE) 2 MG/3ML [...] A1c goal of less than 8.0% ([facility]) Inject 1 mg under the skin once a week. 3 mL 2 024 2023 Discontinued Lovastatin 10 MG Oral Tablet Take 1 Tablet by mouth every evening. 2023 Discontinued NIFEdipine ER Osmotic Release 30 MG Oral Tablet Extended Release 24 Hour (Procardia XL) Take 1 Tablet by mouth in the morning. 2023 Discontinued(M edication List Clean Up) Meclizine HCl 12.5 MG Oral Tablet (Antivert) Take 1 Tablet by mouth 3 times a day as needed for Dizziness. 30 Tablet 2 024 2023 Discontinued(R efill) Gabapentin 600 MG Oral Tablet (Neurontin) Take 1 Tablet by mouth in the morning and 1 Tablet at noon and 1 Tablet before bedtime. 270 Tablet 1 024 2023 Discontinued(R efill) Ozempic (1 MG/DOSE) 4 MG/3ML Subcutaneous Solution [...] as of this encounter (statuses as of 11/13/2024) Active Problems Problem Noted Date Diagnosed Date [...] as of this encounter (statuses as of 11/13/2024) Resolved Problems Problem Noted Date Diagnosed Date [...] as of this encounter (statuses as of 11/13/2024) Immunizations Name Administration Dates Next Due COVID-19 [...] encounter Miscellaneous Notes * Telephone Encounter - Carol Soria CPhT - 11/13/2024 11:00 AM EST Pt calling to request Meclizine HCl 12.5 MG Oral Tablet (Antivert . Informed pt that RX is available at their pharmacy. Pt verbalized understanding and stated they will check with their pharmacy regarding this medication. Thank you, Carol Soria Respiratory Physician [facility] 11/13/2024,11:00 AM * Telephone Encounter - Yahir Quiroz MD - 11/02/2024 2:27 PM EST Signed Prescriptions: Disp Refills Ozempic (1 MG/DOSE) 4 MG/3ML Subcutaneous *9 mL 1 Sig: Inject 1 mg under the skin once a week.Authorizing Provider: YAHIR QUIROZOrdering User: SHALOM LUKE NIFEdipine ER Osmotic Release 30 MG Oral T*90 Tab*1 Sig: Take 1 Tablet [facility] the [facility] gAuthorizing Provider: YAIHR QUIROZ Gabapentin 600 MG Oral Tablet (Neurontin) 90 Tab*5Sig: Take 1 Tablet by mouth in the morning and 1 Tablet at noon and 1 Tablet before bedtime.Authorizing Provider: YAHIR QUIROZ Meclizine HCl 12.5 MG Oral Tablet (Antiver*90 Tab*5 Sig: Take 1 Tablet by mouth 3 times a day as needed for Dizziness.Authorizing Provider: YAHIR QUIROZRefused Prescriptions: Disp Refills Gabapentin 800 MG Oral Tablet (Neurontin) 90 Tab*5 Sig: Take 1 Tablet by mouth in the morning and 1 Tablet at noon and 1 Tablet before bedtime.Refused By: SHALOM LUKE MReason for Refusal: Dose needs clarification * Addendum Note - Adilene Slaughter RN - 11/02/2024 12:46 PM ESTAddended by: ADILENE SLAUGHTER on: 11/02/2024 12:46 PM Modules accepted: Orders * Telephone Encounter - Adilene Slaughter RN - 11/02/2024 12:44 PM EST see below. I attempted to call the patient to see how often she is using the meclizine, no answer and no voicemail * Telephone Encounter - Yari Ansari OSA - 11/02/2024 10:41 AM EST Pt called checking on the status of her medication refill request. She said this is the 3rd time she is calling the office for her medications which are Gabapentin and Meclizine. She states, "she is acting like I am not one of her patients anymore". She said the last time she picked up the Gabapentin was 10/01/2024. Informed her that it looks like both medications were sent on 10/13/2024. Provided her with both medication information such as amount and refills. She said both scripts are writtenwrong. She said for the Gabapentin she normally just gets 90 tablets not 270 and for the Meclizine,she said she usually gets 30 days supply not 10 days. Pt states she is very upset about this because she is almost out of her medication. Was going to transfer her to pharmacy, however she refused because she said she does not have time to talk to anyone else d/t needing to get ready for her surgery this afternoon. Would like her medications taken care of today. Please advise. Thank you. * Telephone Encounter - Yahir Quiroz MD - 11/01/2024 12:38 PM EST Signed Prescriptions: Disp Refills Ozempic (1 MG/DOSE) 4 MG/3ML Subcutaneous *9 mL 1 Sig: Inject 1 mg under the skin once a week. Authorizing Provider: YAHIR QUIROZ Ordering User: SHALOM LUKE NIFEdipine ER Osmotic Release 30 MG Oral T*90 Tab*1 Sig: Take 1 Tablet by mouth in the morning Authorizing Provider: YAHIR QUIROZ Refused Prescripti ons: Disp Refills Gabapentin 800 MG Oral Tablet (Neurontin) 90 Tab*5 Sig: Take 1 Tablet by mouth in the morning and 1 Tablet at noon and 1 Tablet before bedtime. Refused By: SHALOM LUKE Reason for Refusal: Dose needs clarification * Telephone Encounter - Shalom Luke [facility] - 10/30/2024 5:57 PM ESTPending Prescriptions: Disp Refills NIFEdipine ER Osmotic Release 30 MG Oral T*90 Tab*1 Sig: Take 1Tablet by mouth in the morningSigned Prescriptions: Disp Refills Ozempic (1 MG/DOSE) 4 MG/3ML Subcutaneous *9 mL 1 Sig: Inject 1 mg under the skin once a week.Authorizing Provider: YAHIR QUIROZ TAKEROrdering User: SHALOM LUKE MRefused Prescriptions:Disp Refills Gabapentin 800 MG Oral Tablet (Neurontin) 90 Tab*5 Sig: Take 1 Tablet by mouth in the morning and 1 Tablet at noon and 1 Tablet before bedtime.Refused By: SHALOM LUKE MReason for Refusal: Dose needs clarification -- documented in this encounter Plan of Treatment Upcoming Encounters Date Type Department Care Team (Late st Contact Info) Description 05/30/2025 4:00 PM EDT Office Visit Family Medicine [address] [phone] Yahir Quiroz MD [address] [place] [address] [place] [id number] Scheduled Procedures Name Priority Associated Diagnoses Date/Ti [...] as of this encounter Visit Diagnoses Diagnosis Hypertension goal BP (blood pressure) < 140/90- Primary Unspecified essential hypertension Chronic pain due to trauma Type 2 diabetes mellitus with hemoglobin A1c goal of less than 8.0% (HCC) Dizziness Dizziness and giddiness documented in this encounter Advance Directives * Full Code (Latest Code Status on File) Date Activated Date Inactivated Comments 08/23/2008 8:29 AM 08/27/2008 6:36 PM Care Teams Odd Job Laborer Relationship Specialty Start Date End Date Yahir Quiroz MD [address] [place] [address] [place] [id number] PCP - General Family Medicine 09/20/24 documented as of this encounter
--- OUTSIDE RECORDS SUMMARY | 2025-01-03 06:17 | External Medical Summary | Summary of Care ---
Author Name Unknown Organization [facility] Address [address] [facility] [place] [address] Phone [phone] Care Team Providers Care Beater Worker Helper Name Role Phone Yahir Quiroz MD Primary Care Provide r Reason for Visit * Reason Comments eRx-Medication Refill Encounter Details Date Type Department Care Team (Late st Contact Info) Description 12/06/2024 Refill Family Medicine [address] [phone] Marquis Aleman MD [address] [place] [address] [place] [address] Allergies Active Allergy Reactions Criticality Noted Date Comments Ampicillin Nausea/vomiting High 09/27/2008 Fentanyl Other (Please comment) High 03/24/2013 Cardiac arrest Other - Environmental Edema face/lips/tongue High Bee stings documented as of this encounter (statuses as of 12/07/2024) Medications CYMBALTA 60 MG PO CPEPIndications:C hronic [...] Take by mouth. Ac tive nystatin (NYAMYC) 543481 UNIT/GM powderIndications :Intertrigo Apply topically to affected [...] mouth in the morning. 90 Tablet 1 Active oxyCODONE HCl 10 MG Oral Tablet [...] suspected opioid overdose. Seek immediate medical attention. https://www.Sav[employer].com/watch? [email or web address] Active Azithromycin 250 MG Oral Tablet (Zithromax [...] at bedtime. 90 Tablet 3 025 Active metFORMIN HCl 500 MG Oral Tablet (Glucophage) Take 1 Tablet by mouth 2 times a day with morning and evening meals. 180 Tablet 3 024 2024 Discontinued Atorvastatin Calcium 40 MG Oral Tablet (Lipitor) Take 1 Tablet by mouth every night at bedtime. 90 Tablet 3 024 2024 Discontinued documented as of this encounter (statuses as of 12/07/2024) Active Problems Problem Noted Date Diagnosed Date [...] as of this encounter (statuses as of 12/07/2024) Resolved Problems Problem Noted Date Diagnosed Date [...] as of this encounter (statuses as of 12/07/2024) Immunizations Name Administration Dates Next Due COVID-19 mRNA, LNP-s, No Pre serve, 2-Dose Series (Moderna) 03/19/2021,02/19/2021 COVID-19, MRNA-LNP, PF, 30 M CG/0.3 mL, 12 YRS AND ABOVE, IM [facility] 10/03/2023 COVID-19, mRNA, LNP-s, PF, B ooster, [...] Notes * Telephone Encounter - Yaima Bro, [facility] - 12/07/2024 5:47 AM ESTSigned Prescriptions: Disp Refills metFORMIN HCl 500 MG Oral Tablet (Glucopha*180 Ta*3 Sig: Take 1 Tablet by mouth 2 times a day with morning and evening meals.Authorizing Provider: YAHIR QUIROZOrderlana User: YAIMA BRO Atorvastatin Calcium 40 MG Oral Tablet (Li*90 Tab*3 Sig: Take 1 Tablet by mouth every night at bedtime.Authorizing Provider: YAHIR QUIROZOrdering User: YAIMA BRO documented in this encounter Plan of Treatment Upcoming Encounters Date Type Department Care Team (Late st Contact Info) Description 05/30/2025 4:00 PM EDT Office Visit Family Medicine [address] [place] [phone] Yahir Quiroz MD [address] [place] [address] [place] [phone] Scheduled Procedures Name Priority [...] 8:29 AM 08/27/2008 6:36 PM Care Teams Beater Worker Helper Relationship Specialty Start Date End Date Yahir Quiroz MD [address] [place] [address] [place] [phone] PCP - General Family Medicine 09/20/24 documented as of this encounter
--- OUTSIDE RECORDS SUMMARY | 2025-01-03 06:18 | External Medical Summary | Summary of Care ---
Author Name Unknown Organization [facility] Address [address] [facility] [place] [address] Phone [phone] Care Team Providers Care Inspector Eyeglass Name Role Phone Brody Quiroz MD Primary Care Provide r Encounter Details Date Type Department Care Team (Late st Contact Info) Description 11/04/2024 Orders Only Family Medicine [address] [phone] Brody Quiroz MD [address] [place] [address] Allergies Active Allergy Reactions Criticality Noted [...] Take by mouth. Ac tive nystatin (NYAMYC) 682742 UNIT/GM powderIndications: Intertrigo Apply topically to affected [...] suspected opioid overdose. Seek immediate medical attention. https://www.yout ube.com/watch?v= [email or web address] Active Azithromycin 250 MG Oral Tablet (Zithromax [...] 1:00 PM EST Office Visit Family Medicine [address] [phone] Brody Quiroz MD [address] [place] [address] [place] [phone] Scheduled Procedures Name Priority Associated Diagnoses Date/Ti [...] Procedure Name Priority Date/Time Associated Diagnosis Comments XR CHEST 2 VIEWS Routine 11/02/2024 documented in this encounter Results * XR CHEST 2 VIEWS (11/02/2024) Anatomical Region Laterality Modality Chest Other 11/02/2024 us Juan Carlos Demarco DO RADIOLOGY (RAD GENERAL) F inal Result documented in this encounter Advance Directives * Full Code (Latest Code Status on File) Date Activated Date Inactivated Comments 08/23/2008 8:29 AM 08/27/2008 6:36 PM Care Teams Inspector Eyeglass Relationship Specialty Start Date End Date Brody Quiroz MD [address] [place] [address] [place] [phone] PCP - General Family Medicine 09/20/24 documented as of this encounter
--- OUTSIDE RECORDS SUMMARY | 2025-01-03 06:18 | External Medical Summary | Summary of Care ---
Author Name Unknown Organization [facility] Address [address] [facility] [place] [address] Phone [phone] Care Team Providers Care Construction Worker Name Role Phone Brody Quiroz MD Primary Care Provide r Encounter Details Date Type Department Care Team (Late st Contact Info) Description 11/04/2024 Orders Only Family Medicine [address] [phone] Brody Quiroz MD [address] [place] [address] Allergies Active Allergy Reactions Criticality Noted [...] Take by mouth. Ac tive nystatin (NYAMYC) 569355 UNIT/GM powderIndications: Intertrigo Apply topically to affected [...] overdose. Seek immediate medical attention. https://www.yout [email or web address]/watch?v= [email or web address] Active Azithromycin 250 MG Oral Tablet (Zithromax [...] 1:00 PM EST Office Visit Family Medicine [address] [phone] Brody Quiroz MD [address] [place] [address] [place] [phone] Scheduled Procedures Name Priority Associated Diagnoses Date/Ti [...] Procedure Name Priority Date/Time Associated Diagnosis Comments CHEMISTRY-OUTSIDE Routine 11/02/2024 documented in this encounter Results * CHEMISTRY-OUTSIDE (11/02/2024) Not all results display below - see scan for full detail OUTSIDE LAB (SEE SCANNED REPORT) Comment:SEE SCAN- BMP,PTINR, HA1C, CBCD CREATININE 1.02 0.6 - 1.2 MG/DL OUTSIDE LAB (SEE SCANNED REPORT) EGFR 59.18 ML/MIN OUTSIDE LA B (SEE SCANNED REPORT) POTASSIUM 4.4 3.5 - 5.1 MMOL/L OUTSIDE LAB (SEE SCANNED REPORT) GLUCOSE 96 70 - 99 MG/DL OUTSIDE LAB (SEE SCANNED REPORT) HOURS FASTING OUTSID E LAB (SEE SCANNED REPORT) TRIGLYCERIDES-OUT SIDE LAB OUTSIDE LAB (SEE SCANNED REPORT) CHOLESTEROL-OUTSI DE LAB OUTSIDE LAB (SEE SCANNED REPORT) HDL-OUTSIDE LAB OUTS [facility]IA LAB (SEE SCANNED REPORT) CHOL/HDL RATIO-OUTSIDE LAB OUTSIDE LA B (SEE SCANNED REPORT) LDL (CALCULATED)-OUTS [facility] LAB OUTSIDE LAB (SEE SCANNED REPORT) LDL (DIRECT MEASURE)-OUTSIDE LAB OUTSIDE LAB (SEE SCANNED REPORT) HEMOGLOBIN, [id number] LAB 5.4 4.5 - 5.6 % OUTSIDE LAB (SEE SCANNED REPORT) PHOSPHORUS-OUTSID E LAB OUTSIDE LAB (SEE SCANNED REPORT) PTH-OUTSIDE LAB OUTS [facility] LAB (SEE SCANNED REPORT) MICROALBUMIN RATIO-OUTSIDE LAB OUTSIDE LA B (SEE SCANNED REPORT) PROTEIN, UA-OUTSIDE LAB OUTSIDE LAB (SEE SCANNED REPORT) HGB 12.7 12.0 - 16.0 G/DL OUTSIDE LAB (SEE SCANNED REPORT) 11/02/2024 us Juan Carlos Demarco DO LABORATORY Final Res ult OUTSIDE LAB (SEE SCANNED REPORT) documented in this encounter Advance Directives * Full Code (Latest Code Status on File) Date Activated Date Inactivated Comments 08/23/2008 8:29 AM 08/27/2008 6:36 PM Care Teams Construction Worker Relationship Specialty Start Date End Date Brody Quiroz MD [address] [place] [address] [place] [phone] PCP - General Family Medicine 09/20/24 documented as of this encounter
--- OUTSIDE RECORDS SUMMARY | 2025-01-03 06:18 | External Medical Summary | Summary of Care ---
Author Name Unknown Organization [facility] Address [address] [facility] [place] [address] Phone [phone] Care Team Providers Care Ice Sculptor Name Role Phone Yahir Quiroz MD Primary Care Provide r Reason for Referral * Medication Prior Authorization - Authorized Specialty Diagnoses / Procedures Referred By Contac t Referred To Contact Diagnoses Hypertension goal BP (blood pressure) < 140/90 Yahir Quiroz MD [address] [place] [address] [place] [phone] Phone: tel: fax: Referral ID Status Reason Start Date Expiration Date V isits Requested Visits Authorized [id number] Authorized 11/02/2024 11/02/2024 999 999 Reason for Visit * Reason Comments eRx-Medication Refill Encounter Details Date Type Department Care Team (Late st Contact Info) Description 10/29/2024 Refill Family Medicine [facility] [place] [phone] Yahir Quiroz MD [address] [place] [address] [place] [phone] Hypertension goal BP (blood pressure) < 140/90*; Chronic pain due to trauma; Type 2 diabetes mellitus with hemoglobin A1c goal of less than 8.0% ([facility]); Dizziness Allergies Active Allergy Reactions Criticality Noted Date Comments Ampicillin Nausea/vomiting High 09/27/2008 Fentanyl Other (Please comment) High 03/24/2013 Cardiac arrest Other - Environmental Edema face/lips/tongue High Bee stings documented as of this encounter (statuses as of 11/02/2024) Medications CYMBALTA 60 MG PO CPEPIndications:C hronic [...] Take by mouth. Ac tive nystatin (NYAMYC) 504296 UNIT/GM powderIndications :Intertrigo Apply topically to affected [...] 15 minutes 25 Tablet 5 023 Active Fluticasone Propionate 50 MCG/ACT Nasal Suspension (Flonase)Indicati ons:Allergic rhinitis, unspecified seasonality, unspecified trigger Administer 2 Sprays into each nostril in the morning. 16 g 5 024 Active predniSONE 20 MG Oral Tablet (Deltasone)Indica [...] Test once a day E11.9 100 Each Active Accu-Chek Guide In Vitro Strip (Glucose Blood)Indications :Type 2 diabetes mellitus with hemoglobin A1c goal of less than 8.0% ([facility]) Test blood sugar once daily. E11.9 100 Strip 024 Active Accu-Chek Guide w/Device KitIndications:Ty pe [...] the morning. 90 Tablet 1 024 Active Lovastatin 10 MG Oral Tablet [...] suspected opioid overdose. Seek immediate medical attention. https://www.[employer].com/watch? v=[email or web address] Active Azithromycin 250 MG Oral Tablet (Zithromax Z-Dante)Indications :Acute recurrent sinusitis, unspecified location Take two tablets by mouth on first day, then 1 tablet daily until gone 6 Tablet Active Meclizine HCl 12.5 MG Oral Tablet (Antivert) Take 1 Tablet by mouth 3 times a day as needed for Dizziness. 30 Tablet 2 Active Gabapentin 600 MG Oral Tablet (Neurontin) Take 1 Tablet by mouth in the morning and 1 Tablet at noon and 1 Tablet before bedtime. 270 Tablet 1 Active Ozempic (1 MG/DOSE) 4 MG/3ML Subcutaneous Solution Pen-injector (Semaglutide (1 MG/DOSE))Indicati ons:Type 2 diabetes mellitus with hemoglobin A1c goal of less than 8.0% (HCC) Inject 1 mg under the skin once a week. 9 mL 1 Active NIFEdipine ER Osmotic Release 30 MG Oral Tablet Extended Release 24 Hour (Procardia XL)Indications:Hy pertension goal BP (blood pressure) < 140/90 Take 1 Tablet by mouth in the morning 90 Tablet 1 Active Ozempic (0.25 or 0.5 MG/DOSE) 2 MG/3ML [...] week. 3 mL 2 024 2023 Discontinued NIFEdipine ER Osmotic Release 30 MG Oral Tablet Extended Release 24 Hour (Procardia XL) Take 1 Tablet by mouth in the morning. 2023 Discontinued(M edication List Clean Up) documented as of this encounter (statuses as of 11/02/2024) Active Problems Problem Noted Date Diagnosed Date [...] as of this encounter (statuses as of 11/02/2024) Resolved Problems Problem Noted Date Diagnosed Date [...] as of this encounter (statuses as of 11/02/2024) Immunizations Name Administration Dates Next Due COVID-19 [...] as of this encounter Miscellaneous Notes * Addendum Note - Adilene Slaughter RN [...] needs clarification * Telephone Encounter - Shalom Luke, [facility] - 10/30/2024 5:57 PM ESTPending Prescriptions: Disp Refills NIFEdipine ER Osmotic Release 30 MG Oral T*90 Tab*1 Sig: Take 1Tablet by mouth in the morningSigned Prescriptions: Disp Refills Ozempic (1 MG/DOSE) 4 MG/3ML Subcutaneous *9 mL 1 Sig: Inject 1 mg under the skin once a week.Authorizing Provider: YAHIR QUIROZOrdering User: SHALOM LUKE MRefused Prescriptions:Disp Refills Gabapentin 800 MG Oral Tablet (Neurontin) 90 Tab*5 Sig: Take 1 Tablet by mouth in the morning and 1 Tablet at noon and 1 Tablet before bedtime.Refused By: SHALOM LUKE [facility] for Refusal: Dose needs clarification -- documented in this encounter Plan of Treatment Upcoming Encounters Date Type Department Care Team (Late st Contact Info) Description 11/08/2024 1:00 PM EST Office Visit Family Medicine [address] [phone] Yahir Quiroz MD [address] [place] [address] [place] [phone] Scheduled Procedures Name Priority [...] Diabetic Eye Exam 02/25/2025 02/26/2024 HbA1c 03/11/2025 09/10/2024, 0 03/2024, 05/30/2022, Additional history exists Albumin/Creatinine Ratio 09/10/2025 024, 11/28/2023, 03/05/2021, Additional history exists GFR 09/10/2025 09/10/2024, 0 03/2024, 08/19/2022, Additional history exists Lipid Panel 09/10/2029 09/10/2024, 0 03/2024, 05/30/2022, Additional history exists Pneumococcal Vaccine: [...] 8:29 AM 08/27/2008 6:36 PM Care Teams Ice Sculptor Relationship Specialty Start Date End Date Yahir Quiroz MD [address] [place] [address] [place] [phone] PCP - General Family Medicine 09/20/24 documented as of this encounter
[2025-01-03] MEDS ORDERED: BUPIVACAINE 0.25% PF 30 ML VIAL ONE (06:25)
[2025-01-03] MEDS ORDERED: BUPIVACAINE 0.5 % 5 MG/1 ML PF 10ML VIAL ONE (06:25)
--- NOTE | 2025-01-03 06:35 | History & Physical Bridge Note ---
Date of Service January 03, 2025 History & Physical Bridge Note I have examined the patient, reviewed the History & Physical and in the interval since the performance of the History & Physical I have noted the following changes of clinical significance: no changes noted
[2025-01-03] MEDS: ACETAMINOPHEN 500 MG TAB PO SCH ×2 (06:58→14:01)
[2025-01-03] MEDS: LR 500ML BOLUS, THEN 15ML/HR IV SCH (06:58)
[2025-01-03] MEDS ORDERED: MIDAZOLAM HCL 1 MG/ML 2ML VIAL ONE (06:59)
[2025-01-03] MEDS: GABAPENTIN 300 MG CAP PO SCH (06:59)
[2025-01-03] MEDS: LR 60ML/HR IV SCH (06:59)
[2025-01-03] MEDS: dexAMETHasone**PF** 10 MG/ML VIAL IV SCH (06:59)
[2025-01-03] MEDS: FAMOTIDINE 20 MG TAB PO SCH (06:59)
[2025-01-03] MEDS ORDERED: PROPOFOL IV EMULSION 10 MG/ML 20 ML VIAL IV ONE (07:02)
[2025-01-03] MEDS ORDERED: LIDOCAINE 2% 2 ML VIAL/AMP(20MG/ML) INFIL ONE (07:02)
[2025-01-03] MEDS ORDERED: ONDANSETRON INJ 2 MG/ML 2 ML VIAL ONE (07:04)
[2025-01-03] MEDS ORDERED: ePHEDrine sulfate 50 MG/ML AMP IV PRN (07:05)
[2025-01-03] MEDS ORDERED: ATROPINE SULFATE 0.1 MG/ML 10ML SYR IV PRN (07:05)
[2025-01-03] MEDS ORDERED: ONDANSETRON INJ 2 MG/ML 2 ML VIAL IV PRN ×2 (07:05→10:36)
[2025-01-03] MEDS ORDERED: PROMETHAZINE HCL 6.25 MG in SODIUM CHLORIDE 0.9% 50 ML IV PRN (07:05)
[2025-01-03] MEDS: TRANEXAMIC ACID 1,000 MG **IV Pre-op IV SCH (07:48)
[2025-01-03] MEDS: ceFAZolin 2000MG 2,000 MG/15 ML SYR IV SCH ×2 (07:59→17:01)
[2025-01-03] MEDS ORDERED: KETAMINE HCL 10MG/ML SYR ONE (08:03)
[2025-01-03] MEDS: ROPIV 0.5% 246mg, Ketorolac 30mg, EPINEPHrine 0.5mg in NSS INFIL SCH (08:39)
[2025-01-03] MEDS: ORTHO JOINT ANESTHETIC ONE (08:39)
[2025-01-03] MEDS: TRANEXAMIC ACID 1,000 MG **IV Intra-op IV SCH (08:59)
--- NOTE | 2025-01-03 09:07 | Operative Report ---
PG Post Operative Report Pre & Post Diagnosis Operation Date: 01/03/25 08:00 Pre-Op Diagnosis: Right Knee Osteoarthritis Post-Op Diagnosis: Right Knee Osteoarthritis I identified the patient and participated in the time-out.: Yes Procedure Operation Date: 01/03/25 08:00 Actual Procedures p Right Total Knee Arthroplasty(Right) - Juan Carlos Demarco DO Surgeon Juan Carlos Demarco DO Classroom Teacher Fortunato Vasquez PA-C Estimated Blood Loss 50 Findings Consistent with Post-Op Diagnosis Specimens Right femoral and tibial bone Description of Procedure Implants used: I used a Savita Persona total knee arthroplasty system with a size 7 femur, F tibia, 34 oval patella, and a size 10 CPS polyethylene bearing. All components were cemented in place with Biomet cement. Klarissa arrived [facility] for the above procedure. She was seen in the preoperative holding area and the operative extremity was identified and signed. She was given a preoperative antibiotic, TXA, a spinal anesthetic and an adductor nerve block. She was taken back to the operating room and laid on the table in supine position. She was given basic sedation. The operative knee was then prepped and draped in sterile fashion. A timeout was done, and the patient and the operative extremity was properly identified. A midline incision was made directly over the patella. Dissection was taken down to the extensor mechanism. A medial parapatellar arthrotomy was used. The medial retinaculum was released and the fat pad was mostly excised. The knee was flexed and the ACL, PCL, and meniscus were removed. A drill was sent down the center of the femoral canal followed by an intramedullary heidi. Off that heidi a distal femoral cutting block was placed. 9 mm was resected off the distal femur at 5 of valgus. A posterior referencing AP sizing guide was then placed on the distal femur. The femur measured to be a size 7. 2 drill holes were placed in 3 of external rotation. A 4-in-1 cutting block was then impacted into place. Anterior, posterior, and chamfer cuts were then made. The proximal tibia was then exposed. An external tibial alignment guide was placed. A tibial cut guide was then anchored in place and the proximal tibia was then resected. The posterior aspect of the knee was then opened up and any additional meniscus fragments and osteophytes were removed. The tibia measured to be a size F. The tibial plate was then placed in the appropriate rotation and the tibia was drilled and punched. Trial components were then placed. I used a size 10 CPS polyethylene insert. The knee was brought through a full range of motion and felt to be stable. The peg holes for the femoral component were then drilled. The patella was then everted and 9 mm was resected off the posterior aspect of the patella. The patella measured to be a size 34 oval. 3 peg holes were then drilled. A trial patella was placed. The knee was once again brought through a full range of motion and felt to be stable. Trial components were then removed. The surrounding soft tissues were injected with 100 cc of an orthopedic pain control cocktail. All components were then cemented into place with Biomet cement. The final polyethylene insert was then snapped into place. Once cement was dry the tourniquet was deflated. Hemosta sis was obtained. A dilute betadyne lavage was then done for 3 minutes. The joint was then irrigated with normal saline solution. The medial parapatellar arthrotomy was then closed with #1 Vicryl suture. The skin was closed with 2-0 Vicryl, 3-0V lock suture, and mary. A soft compressive dressing was placed. She was then transferred to a hospital bed and taken to the postanesthesia care unit in stable condition. She tolerated the procedure well. Fortunato Vasquez PA-C, was present for the entire procedure. He was critical for patient positioning, prepping, draping, retraction exposure, wound closure and application of sterile dressing. I attest to the content of the Intraoperative Record and any orders documented therein. Any exceptions are noted below.
--- NOTE | 2025-01-03 10:09 | XRay Report ---
XR knee RT 1 or 2V routine HISTORY: 69 years-old Female Surgical Post Op right knee arthroplasty COMPARISON: 08/17/2024 radiograph TECHNIQUE: 2 views of the right knee FINDINGS: Total joint arthroplasty with patellar resurfacing. No acute fracture or unexpected opaque foreign yousif dy. Anterior midline skin mary with expected postoperative soft tissue swelling and deep tissue ai r. IMPRESSION: Total joint arthroplasty with expected postoperative changes. ACT 112: Negative or not required by law. The above report was generated using voice recognition software. It may contain grammatical, syntax o r spelling errors. Electronically signed by: Andrez Crisostomo M.D. 01/03/2025 10:07 AM
[2025-01-03] MEDS ORDERED: NALOXONE HCL 0.4 MG/1 ML VIAL/CARP IV PRN (10:36)
[2025-01-03] MEDS ORDERED: MAGNESIUM HYDROXIDE SUSP 30 ML UDC PO PRN (10:36)
[2025-01-03] MEDS ORDERED: EPINEPHrine ADULT AUTO-INJECT 0.3 MG SYR IM PRN (10:36)
[2025-01-03] MEDS ORDERED: FUROSEMIDE 40 MG TAB PO PRN (10:36)
[2025-01-03] MEDS ORDERED: NITROGLYCERIN SL 0.4 MG/TAB TAB SL PRN (10:36)
[2025-01-03] MEDS ORDERED: HYDROmorphone INJ 0.5 MG/0.5 ML SYR IV PRN (10:36)
[2025-01-03] MEDS ORDERED: bisacodyL 10 MG SUPP PR PRN (10:36)
[2025-01-03] MEDS ORDERED: ALBUTEROL HFA 8 GM INHALER INH PRN (10:36)
[2025-01-03] MEDS ORDERED: METOCLOPRAMIDE HCL INJ 5 MG/ML 2 ML VIAL IV PRN (10:36)
[2025-01-03] MEDS ORDERED: PHARMACY GLYCEMIC MGMT CONSULT PRN (10:36)
[2025-01-03] MEDS: oxyCODONE HCL IR 5 MG TAB (IMMEDIATE RELEASE) PO PRN (11:16)
[2025-01-03] MEDS ORDERED: EPINEPHrine INJ 1 MG/ML AMP IM PRN (11:24)
[2025-01-03] MEDS: KETOROLAC TROMETHAMINE 15 MG/ML VIAL IV SCH (11:25)
[2025-01-03] MEDS: INSULIN ASPART PER UNIT CHARGE SC SCH (12:47)
[2025-01-03] MEDS: MECLIZINE 12.5 MG TAB PO SCH (14:01)
[2025-01-03] MEDS: GABAPENTIN 800 MG TAB PO SCH (14:01)
--- NOTE | 2025-01-03 14:26 | Pharmacy Report ---
Pharmacy Glycemic Short Note 2 - Date of Service January 03, 2025 - Glycemic Short BSG Results (Last 24 hours): 01/03/25 01/03/25 01/03/25 06:31 09:29 11:40 POC Glucose 128 H 141 H 136 H OUTPATIENT ANTIDIABETIC REGIMEN: * Ozempic 2mg SQ QWed * metformin 500mg BID * HbA1c 5.4% (11/02/24) ASSESSMENT: * Klarissa is a 69 YOF admitted status post right total knee arthroplasty with a history of T2DM. Pharmacy has been consulted to assist with glycemic management while inpatient. * Preoperative BSG this AM in goal range, pre-lunch BSG still in goal range, received 10 units IV dexamethasone preoperatively this AM with no additional doses ordered. Do not forsee extreme steroid induced hyperglycemia and will withhold basal at this time. * NovoLog initiated at a weight based stress of 2 PLAN FOR INPATIENT GLYCEMIC CONTROL: * Hold outpatient oral diabetes medications * Basal insulin * no indicated at this time * Bolus insulin * NovoLog per scale ACHS or Q6hrs while NPO * Goal Range: Low 110 mg/dL - High 140 mg/dL * Correction Factor: 25 mg/dL/unit * Nutritional / Prandial insulin per carb ratio of 1 unit per 8 grams CHO consumed
--- NOTE | 2025-01-03 14:47 | Anesthesiology Progress Note ---
Date of Service January 03, 2025 Anesthesia Post Procedure Vital Signs Vital Signs: Temp Pulse Pulse Pulse Resp BP Pulse Ox 01/03/25 13:25 36.3 C L 73 16 98/62 L 98 01/03/25 12:25 83 18 111/70 98 01/03/25 11:24 69 18 109/69 99 01/03/25 10:55 70 18 108/70 98 01/03/25 10:25 36.4 C L 65 18 111/68 94 01/03/25 10:10 63 14 104/64 96 01/03/25 09:55 36.4 C L 65 14 103/63 95 01/03/25 09:45 69 14 105/66 100 01/03/25 09:35 69 12 108/60 99 01/03/25 09:27 36.4 C L 73 16 99/62 L 97 01/03/25 07:06 36.8 C 85 20 118/70 98 O2 Del Method O2 Flow Rate 01/03/25 13:25 Room Air 01/03/25 12:25 Room Air 01/03/25 11:24 Room Air 01/03/25 10:55 Room Air 01/03/25 10:25 Room Air 01/03/25 10:10 Room Air 01/03/25 09:55 Room Air 01/03/25 09:45 Oxymask 4 01/03/25 09:35 Oxymask 4 01/03/25 09:27 Oxymask 4 01/03/25 07:06 Room Air Pain Intensity Back: Pain Intensity: 4 Transfer of Care Handoff Completed per policy Notes Mental Status: alert / awake / arousable and participated in evaluation Patient Amnestic to Procedure: Yes Nausea / Vomiting: adequately controlled Pain: adequately controlled Airway Patency, RR, SpO2: stable & adequate BP & HR: stable & adequate Hydration State: stable & adequate Neuraxial Anesthesia: was administered and sensory block is resolving Anesthetic Complications: no major complications apparent and Pt Satisfied with anesthetic care
[2025-01-03] MEDS: QUEtiapine FUMARATE 200 MG TAB PO SCH (19:43)
[2025-01-03] MEDS: PANTOprazole 40 MG TAB PO SCH (19:44)
[2025-01-03] MEDS: ASPIRIN 81 MG ECTAB PO SCH (19:45)
[2025-01-03] MEDS: ATORVASTATIN 40 MG TAB PO SCH (19:45)
[2025-01-03] MEDS: cloNIDine HCL 0.1 MG TAB PO SCH (19:46)
[2025-01-03] MEDS: DOCUSATE SODIUM 100 MG CAP PO SCH (20:35)
[2025-01-03] MEDS: SENNA 8.6 MG TAB PO SCH (20:35)
[2025-01-03] MEDS ORDERED: metFORMIN HCL 500 MG TAB PO SCH (21:00)
[2025-01-04 07:53] VITALS: RESP 18; O2SAT 95
[2025-01-04] MEDS: DULoxetine HCL 60 MG CAP PO SCH (08:48)
[2025-01-04] MEDS: NIFEdipine EXTENDED REL 30 MG TABCR PO SCH (08:48)
[2025-01-04] MEDS: MULTIVITAMIN TAB PO SCH (08:48)
[2025-01-04] MEDS: FENOFIBRATE NANOCRYSTALLIZED 145 MG TABLET PO SCH (08:48)
[2025-01-04] MEDS: QUEtiapine FUMARATE 100 MG TABLET PO SCH (08:49)
[2025-01-04 11:17] VITALS: BP 131/81; PULSE 66; TEMP 98.1
--- NOTE | 2025-01-04 12:54 | Orthopedic Progress Note ---
Date of Service January 04, 2025 Assessment & Plan (1) Status post total right knee replacement: Assessment: Status post right total knee arthroplasty. Plan: Overall, she is doing quite well today with good pain control right knee. She will work with physical therapy later this morning to work on ambulation and range of motion exercises. She is on aspirin for DVT prophylaxis. Prescriptions were sent to the pharmacy with verbal confirmation. She is on a pain contract so it was already discussed prior to surgery that we will fill a prescription of oxycodone 5 mg with 60 tablets for a one-time fill. She will then have to go back to her pain management team for any other prescription/refill. Her dressings can be changed prior to discharge today. She will begin her YASMIN hoses until seen postoperatively. She can be discharged home later this morning pending formal physical therapy evaluation and recommendations. She will follow-up with orthopedics in 2 weeks for continued postoperative management. She verbalized understanding and agrees with this plan. Antoine . Klarissa was seen and evaluated this morning resting comfortably no apparent distress. She notes that her pain is well-controlled to her right knee. She notes she has been up and out of bed without any significant issues today. She has yet to be seen by physical therapy today. She denies any concerns with her surgical incision site. She denies any active bleeding, discharge, or signs of infection. She denies any other concerns today. Review of Systems All systems reviewed & are unremarkable except as noted in HPI & below. Physical Exam . On physical examination of the right knee, her dressings are clean, dry, and intact with no signs of active bleeding, discharge, or signs of infection. No tenderness to palpation. Her leg is out in full extension with limited flexion and secondary to postoperative stiffness and soreness. Calf soft nontender to palpation. Negative Homans' sign. Intact plantarflexion dorsiflexion of the right ankle. +2 DP and PT pulse. Less than 2-second capillary refill. Normal sensation. Neurovascular intact. Results & Data Results & Data Laboratory Results . Diagnostic Findings . Knee X-Ray 01/03/25 09:30 XR knee RT 1 or 2V routine HISTORY: 69 years-old Female Surgical Post Op right knee arthroplasty COMPARISON: 08/17/2024 radiograph TECHNIQUE: 2 views of the right knee FINDINGS: Total joint arthroplasty with patellar resurfacing. No acute fracture or unexpected opaque foreign body. Anterior midline skin mary with expected postoperative soft tissue swelling and deep tissue air. IMPRESSION: Total joint arthroplasty with expected postoperative changes. ACT 112: Negative or not required by law. The above report was generated using voice recognition software. It may contain grammatical, syntax or spelling errors. Electronically signed by: Andrez Crisostomo M.D. 01/03/2025 10:07 AM PG Care Time/CCT Total # of Minutes Spent Total Time Spent with Patient: Total time spent is greater than 50% in coordination of care (as documented) at patient's floor/unit and/or counseling patient: Coding Level of Care Code 74704 Post Operative Follow-Up Diagnoses Status post total right knee replacement Z96.651
--- NOTE | 2025-01-04 12:55 | Discharge Summary ---
Date of Service January 04, 2025 Admission HPI (Per Admitting) Klarissa is a pleasant 69-year-old female who has been dealing with chronic increasing right knee pain. X-rays and clinical examination have been diagnostic for advanced arthritis of the right knee. She is using a cane and is often wheelchair-bound because of the right knee. After failed conservative treatment, she has elected to proceed with a right total knee arthroplasty. Admission Exam (Per Admitting) On physical exam of the right knee, she has a slight valgus deformity. Tenderness palpation of the distal lateral femoral condyle and over the lateral joint line.. Principal Diagnosis Same as "Discharge Diagnosis" noted below under Discharge Instructions. Discharge Exam . On physical examination of the right knee, her dressings are clean, dry, and intact with no signs of active bleeding, discharge, or signs of infection. No tenderness to palpation. Her leg is out in full extension with limited flexion and secondary to postoperative stiffness and soreness. Calf soft nontender to palpation. Negative Homans' sign. Intact plantarflexion dorsiflexion of the right ankle. +2 DP and PT pulse. Less than 2-second capillary refill. Normal sensation. Neurovascular intact. Discharge Data Procedures Performed Operation Date: 01/03/25 08:00 Actual Procedures p Right Total Knee Arthroplasty(Right) - Juan Carlos Demarco DO Ordered Studies 01/03/25 05:00 US - OR guided needle placemen Routine Hospital Course (1) Status post total right knee replacement: On January 03, 2025 Klarissa arrived at [facility] and underwent a right total knee arthroplasty performed by Dr. Demarco with no complications. She had a spinal anesthetic. Postoperatively, she was started on aspirin for DVT prophylaxis and transferred to the general orthopedic floor in stable condition. Her hospital course was uneventful. On postoperative day #1, her vital signs are stable and her pain was well-controlled. She participated well physical therapy working on ambulation and range of motion exercises. She was then discharged home in stable condition. She will follow-up with orthopedics in 2 weeks for continued postoperative management or sooner if needed. PG Care Time/CCT Total # of Minutes Spent Total Time Spent with Patient: Total time spent is greater than 50% in coordination of care (as documented) at patient's floor/unit and/or counseling patient: Discharge Plan Discharge Items Patient Disposition: Home - Home Health Services Reason For Visit: Right Knee Arthritis Discharge Diagnosis: Right total knee arthroplasty Activity: Per Instructions section Non-emergency contact: Surgeon Call non-emergency contact if: your temperature is above 101.5, your wound has increased redness, your wound has increased drainage and your wound pain has increased Follow-up/Referrals: Brody Quiroz MD [Primary Care Provider] - Diet: Regular Addtl Attending Provider Instructions: Activity and Therapy Recommendations: * If you are using [facility] then Physical Therapy will be provided until they feel you are ready to start Outpatient Physical Therapy. If you are not using a Home Health agency then Outpatient Physical Therapy should start about 3-5 days from your day of surgery. Therapy will last about 6-10 weeks * It is important not to put a pillow under your knee when you are relaxing or sleeping. It is just as important to make sure you are getting your knee perfectly straight as it is to regain your knee bend. * You were shown a series of exercises in the hospital. Do these exercises three times each day including the exercises you were shown in physical therapy. * Get up and walk several times each day. For the first four weeks, try not to stand or walk for more than one hour at a time. If you do stand or walk for more than one hour, you will not hurt anything, but your leg will likely swell. * As you feel comfortable, you may change from the walker or crutches to a cane and then to independent walking. * You may return to previous diet. Medications: * Narcotic You will likely be sent home from the hospital with a prescription for the narcotic pain medication that worked best throughout your stay. * Aspirin Most patients will be required to take Aspirin 81mg twice a day for 6 weeks after surgery. This is obtained [id number] and a prescription is not necessary. * Other medications may be prescribed for specific circumstances. If you have any questions, please call the office at . * Resume previous home medications unless otherwise instructed TEDs/Elastic Stockings: The white elastic stockings help limit swelling and prevent blood clots from forming in your legs.~ The more you wear them, the more they work. Wear them for six weeks. Dressing Care: If the incision is not draining then you may leave the mary open to air. If there is a little bit of drainage or if the mary are getting stuck on your clothing then cover the incision with a dry dressing. The mary will be removed at your 2 week follow-up appointment. Showering: You may shower 5 days from the day of surgery. Let the soapy shower water run over the mary and pat them dry. Do not scrub or soak the incision. Things To Watch For: * Drainage from the incision site that occurs more than one week after your surgery. * Increased redness at the incision site. * Fever above 102 degrees Fahrenheit. * Unusual chest pain or shortness of breath. * Call [facility] at [phone] with any of the above problems. Follow-Up Visit: Follow-up with Dr. Demarco 2-3 weeks after your day of surgery. An appointment was probably scheduled when you signed-up for surgery in the office. If you have any questions call . Office Instructions: More detailed instructions as well as Frequently Asked Questions were provided in a folder by our office when you signed-up for surgery. Please review these instructions when you get home. If you have any further questions or concerns, please feel free to call the office at [phone]. Pending Studies at Discharge: No Stand-Alone Forms: My [facility], Smoking Cessation Medications and DC Order Prescriptions: New aspirin 81 mg Tablet,Delayed Release (Dr/Ec) 81 mg PO BID 42 Days Qty: 0 0RF oxycodone 5 mg Tablet 5 mg PO Q6H PRN (Reason: pain) Qty: 60 0RF cefadroxil 500 mg capsule 500 mg PO BID 10 Days Qty: 20 0RF Continued clonidine HCl [Catapres] 0.1 mg Tablet 0.1 mg PO HS omeprazole 40 mg Capsule,Delayed Release(Dr/Ec) 40 mg PO BID nitroglycerin [Nitrostat] 0.4 mg Tablet, Sublingual 1 tab Sublingual DIRECTED PRN (Reason: Chest Pain) nystatin [Nystop] 100,000 unit/gram Powder 1 applic TOPICAL BID PRN (Reason: Rash) epinephrine [EpiPen] 0.3 mg/0.3 mL Auto-Injector 0.3 mg IM Q3H PRN (Reason: Anaphylaxis) fluticasone propionate [Flonase Allergy Relief] 50 mcg/actuation [place],Suspension 2 spray INTRANASAL DAILY PRN (Reason: Sinus Symptoms) duloxetine [Cymbalta] 60 mg Capsule,Delayed Release(Dr/Ec) 120 mg PO QAM fenofibrate nanocrystallized [Tricor] 145 mg Tablet 145 mg PO QAM omega [id number] oil [Fish Oil] 1,000 mg (120 mg-180 mg) Capsule 1 cap PO QAM Multi For Her 18 mg iron-600 mcg-40 mcg Capsule 1 tab-cap PO QAM furosemide [Lasix] 40 mg tablet 40 mg PO DAILY PRN (Reason: Edema) potassium chloride 20 mEq tablet,ER particles/crystals 20 meq PO QAM albuterol sulfate 90 mcg/actuation HFA aerosol inhaler 2 puff INHALATION QID PRN (Reason: Shortness Of Breath Or Wheezing) nifedipine [Procardia XL] 30 mg Tablet Extended Release 24hr 30 mg PO QAM Qty: 30 0RF atorvastatin [Lipitor] 40 mg Tablet 40 mg PO HS metformin 500 mg Tablet 500 mg PO BID meclizine 12.5 mg Tablet 12.5 mg PO TID semaglutide 0.25 mg or 0.5 mg(2 mg/1.5 mL) Pen Injector 0.5 mg SUBCUT WK Rx Instructions: Friday quetiapine 100 mg tablet 100 mg PO QAM gabapentin 800 mg Tablet 800 mg PO TID quetiapine 400 mg tablet 400 mg PO HS Discontinued oxycodone 10 mg tablet 10 mg PO QID PRN (Reason: Pain) Krames/Other Patient Handouts: Total Knee Replacement, Knee Replace Manage Pain Admission Data Admit Date/Time: 01/03/25 09:30 Attending Provider: Juan Carlos Demarco Admit Provider: Juan Carlos Demarco Primary Care Provider: Brody Quiroz Other Providers: Luis Alfredo [facility] Other Interventions: Discharge Summary Assessment (RN) Last Done: 01/04/25 10:51
== END 2025-01-04 13:16 | disposition home health service (06) ==
LOC: ASU 06:08 → 3N 06:08